=== PATIENT | male | born 1940 | race Caucasian/White ===

== ENCOUNTER → 2018-02-11 | Outpatient (REF) | payer MEDICARE ==
[2018-02-11 14:41] LABS: AMORPHOUS SEDIMENT SMALL (NEGATIVE); APPEARANCE, URINE CLEAR (CLEAR); BACTERIA, URINE AUTO NEGATIVE (NEGATIVE); BILIRUBIN, URINE AUTO NEGATIVE (NEGATIVE); BLOOD, URINE BLOOD NEGATIVE (NEGATIVE); COLOR, URINE YELLOW (YELLOW); GLUCOSE, URINE (UA) AUTO NEGATIVE (NEGATIVE); KETONE, URINE AUTO NEGATIVE (NEGATIVE); LEUKOCYTE ESTERASE, URINE AUTO NEGATIVE (NEGATIVE); NITRITE, URINE AUTO NEGATIVE (NEGATIVE); PROTEIN, URINE AUTO NEGATIVE (NEGATIVE); RBC, URINE AUTO 3 /HPF (0-3); SQUAMOUS EPITHELIAL CELL UR AU 0 /HPF (0-6); WBC, URINE AUTO 2 /HPF (0-3)
== END ==
LOC: M SFHCPLAZ 13:24
DX: N39.45 Continuous leakage (principal)
CPT/HCPCS: 81001

== ENCOUNTER → 2018-02-22 | Outpatient (CLI) | payer MEDICARE ==
--- NOTE | 2018-02-22 13:17 | REP ---
Acute abdominal series: Five views. History: Diarrhea and fatigue. Abdomen pain. Findings: Upright chest radiograph shows mildly hyperinflated lungs without evidence of infiltrate. Heart is not enlarged. The aorta is tortuous. There is a levoconvex curvature in the thoracic spine along with fairly advanced degenerative disc change. No free subdiaphragmatic air is seen. Supine and erect views of the abdomen show prostate seeds in the prostate bed. There is diffuse osteoporosis. The bowel gas pattern is unremarkable. No mass or organomegaly is seen. Some degenerative changes are seen in the upper lumbar spine. Impression: Status post prostate seed placement. Normal bowel gas pattern. No acute disease. Electronically Signed by Jed Walls MD 02/22/2018 04:55 P
[2018-02-22 18:07] LABS: ALBUMIN 3.8 GM/DL (3.2-5.2); ALT/SGPT 17 U/L (12-78); AMYLASE 53 U/L (25-115); BILIRUBIN,TOTAL 1.2 MG/DL (0.2-1.0); BLOOD UREA NITROGEN 8 MG/DL (7-18); CALCIUM LEVEL 8.8 MG/DL (8.8-10.2); CARBON DIOXIDE LEVEL 27 MEQ/L (21-32); CHLORIDE LEVEL 95 MEQ/L (98-107); CREATININE FOR GFR 0.76 MG/DL (0.70-1.30); GLOMERULAR FILTRATION RATE > 60.0 (>42); GLUCOSE, FASTING 92 MG/DL (70-100); LIPASE 198 U/L (73-393); SODIUM LEVEL 131 MEQ/L (136-145); TOTAL PROTEIN 6.5 GM/DL (6.4-8.2)
[2018-02-22 18:27] LABS: BASO % 0.3 % (0.0-1.0); EOS % 0.3 % (0.0-3.0); HEMATOCRIT 40.7 % (42.0-52.0); HEMOGLOBIN 14.9 g/dl (13.5-17.5); LYMPH # 0.8 10^3/uL (1.5-4.5); LYMPH % 11.5 % (24.0-44.0); MEAN CORPUSCULAR HEMOGLOBIN 33.1 pg (27.0-33.0); MEAN CORPUSCULAR HGB CONC 36.6 g/dl (32.0-36.5); MEAN CORPUSCULAR VOLUME 90.4 fl (80.0-96.0); MONO # 0.5 10^3/uL (0.0-0.8); MONO % 6.7 % (0.0-5.0); NEUTROPHILS # 5.8 10^3/uL (1.8-7.7); NEUTROPHILS % 81.1 % (36.0-66.0); WHITE BLOOD COUNT 7.1 10^3/uL (4.0-10.0)
== END ==
LOC: M WUC 12:11
PROVIDERS: ATTEND Physician Assistant
DX: R19.7 Diarrhea, unspecified (principal)

== ENCOUNTER → 2018-02-27 | Outpatient (REF) | payer MEDICARE | LOC: M SFHCPLAZ 16:19 | PROVIDERS: ATTEND Student in an Organized Health Care Education/Training Program | DX: R19.7 Diarrhea, unspecified (principal) ==

== ENCOUNTER 2018-11-04 11:49 | Emergency (ER) | payer MEDICARE ==
[~2018-11-04] VITALS: Ht 177.8 cm; Wt 74.1 kg
[2018-11-04] MEDS ORDERED: ATEN25TA PO (12:44)
[2018-11-04] MEDS ORDERED: PEPT262S PO (12:45)
[2018-11-04] MEDS ORDERED: BENA25CA4 PO (12:46)
[2018-11-04 12:57] LABS: BASO % 0.3 % (0.0-1.0); EOS % 0.3 % (0.0-3.0); HEMATOCRIT 44.1 % (42.0-52.0); LYMPH # 0.8 10^3/uL (1.5-4.5); LYMPH % 9.8 % (24.0-44.0); MEAN CORPUSCULAR HGB CONC 36.3 g/dl (32.0-36.5); MEAN CORPUSCULAR VOLUME 93.8 fl (80.0-96.0); MONO # 0.5 10^3/uL (0.0-0.8); MONO % 6.3 % (0.0-5.0); NEUTROPHILS # 6.6 10^3/uL (1.8-7.7); PLATELET COUNT, AUTOMATED 265 10^3/uL (150-450); WHITE BLOOD COUNT 7.9 10^3/uL (4.0-10.0)
[2018-11-04 13:15] VITALS: BP 160/78
[2018-11-04] MEDS ORDERED: NS 1,000 ML IV ONE (13:15)
[2018-11-04 13:16] LABS: ALBUMIN 3.9 GM/DL (3.2-5.2); ALT/SGPT 22 U/L (12-78); BILIRUBIN,DIRECT 0.2 MG/DL (0.0-0.2); BLOOD UREA NITROGEN 9 MG/DL (7-18); CALCIUM LEVEL 9.3 MG/DL (8.8-10.2); CARBON DIOXIDE LEVEL 26 MEQ/L (21-32); CHLORIDE LEVEL 102 MEQ/L (98-107); CREATININE FOR GFR 0.63 MG/DL (0.70-1.30); GLOMERULAR FILTRATION RATE > 60.0 (>42); GLUCOSE, FASTING 103 MG/DL (70-100); LIPASE 192 U/L (73-393); POTASSIUM SERUM 3.6 MEQ/L (3.5-5.1); SODIUM LEVEL 136 MEQ/L (136-145)
[2018-11-04] MEDS ORDERED: AMBI5TAB PO ×2 (14:25→14:26)
--- NOTE | 2018-11-04 14:29 | REP ---
Portable chest, 01:24 p.m., single AP view with the the patient sitting: There are no comparison studies. The lung macias are clear. The cardiac size is normal. The miguelangel, mediastinum, and skeletal structures are unremarkable. Impression: Negative portable chest. Electronically Signed by Chad Pantoja MD 11/04/2018 02:20 P
== END 2018-11-04 14:45 | disposition home or self-care (01) ==
LOC: M ED 11:49
DX: R19.7 Diarrhea, unspecified (principal); I10 Essential (primary) hypertension; F17.290 Nicotine dependence, other tobacco product, uncomplicated; Z79.899 Other long term (current) drug therapy

== ENCOUNTER → 2018-11-08 | Outpatient (CLI) | payer MEDICARE ==
[~2018-11-08] MED LIST: AMBI5TAB PO; ATEN25TA PO; BENA25CA4 PO; ISOVUE-370 76% 100ML VIAL (Q9967) As Ordered ONE; PEPT262S PO
--- NOTE | 2018-11-08 14:26 | REP ---
CT of the abdomen pelvis without and with contrast (CT urogram) Indication: Continuous leakage of urine. Malignant neoplasm of urinary bladder, unspecified site. Comparison: None Technique: Axial CT urogram was performed including precontrast, cortical medullary and excretory phase imaging of the abdomen and pelvis. Coronal and sagittal reformatted images of the excretory phase imaging and volume rendering of the ureters and bladder was performed. A total of 100 mL of Isovue 370 was administered intravenously. Findings: Lung bases: There is no suspicious nodule or consolidation. There is no pleural or pericardial effusion. Note is made of atherosclerotic calcifications of the thoracic aorta and coronary arteries. CT urogram: No calculus is identified within the kidneys, ureter or bladder. The kidneys enhance symmetrically. There is no hydronephrosis or hydroureter. The urinary bladder is underdistended throughout the study. On excretory phase imaging, the urinary bladder is incompletely opacified as are the distal ureters. There is incomplete opacification of the proximal right and left ureter which may be secondary to pulsation. The non dependent portion of the urinary bladder is unopacified. The anterior wall is incompletely evaluated. There is undulation of the posterior wall of the urinary bladder, greater on the right (image 120). A focal mass is not identified. There is contrast of the base of the prostate centrally which may represent excreted contrast within the urethra (axial image 128). Within the remainder of the abdomen and pelvis, the liver and spleen are normal. There is a small left upper quadrant accessory spleen. A calcified gallstone is seen within the gallbladder. The adrenal glands are thickened without suspicious focal nodule. The pancreas is unremarkable. There is atherosclerotic calcification of the abdominal aorta and its branches. There is abdominal aortic ectasia. There is evidence of mural thrombus. Unopacified stomach and bowel loops are normal in caliber. There is no intraperitoneal free air or free fluid. Brachytherapy seeds are scattered throughout the prostate gland. Bones/soft tissues: There is diffuse idiopathic skeletal hyperostosis within the lower thoracic spine. There is compression deformity of the L2 vertebral body with diffuse sclerosis and less than 50% loss of height anteriorly. There is superior endplate Schmorl's node deformity at L3. There is contour deformity of the first coccygeal vertebra, likely remote fracture. There is fatty atrophy of the posterior paraspinal muscles at the level of the sacrum. There is a 2 cm rounded subcutaneous lesion superficial to the spinous process of T12 which could represent a sebaceous cyst. Impression: Incomplete opacification of the distal ureters and bladder on delayed phase of CT urogram and incomplete distension of the urinary bladder. Within this limitation, no focal mass is identified. Contrast is seen at the base of prostate, presumably within the prostatic urethra. Compression deformity and sclerosis of the L2 vertebral body with less than 50% loss of height. Other chronic findings as above. Electronically Signed by Jovan Dunn MD 11/08/2018 02:19 P
== END ==
LOC: M RAD 11:01
PROVIDERS: ATTEND Urology
DX: N39.45 Continuous leakage (principal); C67.9 Malignant neoplasm of bladder, unspecified
CPT/HCPCS: 74178; Q9967

== ENCOUNTER 2020-06-08 09:36 | Emergency (ER) | payer OTHER, MEDICARE ==
[~2020-06-08] VITALS: Ht 177.8 cm; Wt 82.0 kg
[~2020-06-08 09:36] MED LIST changes: -ISOVUE-370 76% 100ML VIAL (Q9967) As Ordered ONE
[2020-06-08] MEDS ORDERED: NS 1,000 ML IV ONE (10:20)
[2020-06-08 10:30] LABS: BASO % 0.4 % (0.0-1.0); EOS # 0.2 10^3/uL (0.0-0.5); EOS % 2.7 % (0.0-3.0); HEMATOCRIT 45.8 % (42.0-52.0); HEMOGLOBIN 15.9 g/dl (13.5-17.5); LYMPH % 12.7 % (24.0-44.0); MEAN CORPUSCULAR HGB CONC 34.7 g/dl (32.0-36.5); MEAN CORPUSCULAR VOLUME 92.2 fl (80.0-96.0); MONO # 0.6 10^3/uL (0.0-0.8); MONO % 7.3 % (2.0-8.0); NEUTROPHILS # 5.8 10^3/uL (1.5-8.5); NEUTROPHILS % 76.6 % (36.0-66.0); PLATELET COUNT, AUTOMATED 235 10^3/uL (150-450); RED BLOOD COUNT 4.97 10^6/uL (4.30-6.10); WHITE BLOOD COUNT 7.5 10^3/uL (4.0-10.0)
[2020-06-08 10:55] LABS: BILIRUBIN,DIRECT 0.2 MG/DL (0.0-0.2); BILIRUBIN,TOTAL 0.8 MG/DL (0.2-1.0); TOTAL PROTEIN 6.9 GM/DL (6.4-8.2)
[2020-06-08 12:18] VITALS: BP 184/90
[2020-06-08] MEDS ORDERED: VANC125C3 PO (14:47)
== END 2020-06-08 12:36 | disposition home or self-care (01) ==
LOC: M ED 09:36
DX: R19.7 Diarrhea, unspecified (principal); I10 Essential (primary) hypertension; Z79.899 Other long term (current) drug therapy

== ENCOUNTER 2020-06-21 17:52 | Emergency (ER) | payer MEDICARE, OTHER ==
[~2020-06-21] VITALS: Ht 180.3 cm; Wt 81.9 kg
[~2020-06-21 17:52] MED LIST changes: +VANC125C3 PO
--- NOTE | 2020-06-21 19:16 | REP ---
INDICATION: CHEST PAIN. COMPARISON: 11/04/2018 a portable chest TECHNIQUE: Two views FINDINGS: The superior mediastinal structures are midline. There is thoracic aortic tortuosity status quo. The cardiac silhouette is unremarkable in size, shape, and position. The diaphragmatic surfaces of the lungs are regular, and the costophrenic angles are clear. The pulmonary macias are clear. The imaged osseous structures are intact. IMPRESSION: There is no acute cardiopulmonary disease. <Electronically signed by Prasanth Aranda > 06/21/20 [id number]
[2020-06-21 20:08] LABS: BASO % 0.5 % (0.0-1.0); EOS # 0.1 10^3/uL (0.0-0.5); EOS % 1.7 % (0.0-3.0); HEMATOCRIT 45.2 % (42.0-52.0); HEMOGLOBIN 15.7 g/dl (13.5-17.5); LYMPH # 0.9 10^3/uL (1.5-5.0); LYMPH % 11.2 % (24.0-44.0); MEAN CORPUSCULAR HEMOGLOBIN 31.8 pg (27.0-33.0); MEAN CORPUSCULAR HGB CONC 34.7 g/dl (32.0-36.5); MEAN CORPUSCULAR VOLUME 91.5 fl (80.0-96.0); MONO # 0.5 10^3/uL (0.0-0.8); MONO % 5.7 % (2.0-8.0); NEUTROPHILS # 6.8 10^3/uL (1.5-8.5); NEUTROPHILS % 80.5 % (36.0-66.0); PLATELET COUNT, AUTOMATED 281 10^3/uL (150-450); RED BLOOD COUNT 4.94 10^6/uL (4.30-6.10); WHITE BLOOD COUNT 8.4 10^3/uL (4.0-10.0)
[2020-06-21 20:21] LABS: INR 0.97
[2020-06-21 20:22] LABS: PARTIAL THROMBOPLASTIN TIME 29.5 SECONDS (24.2-38.5)
[2020-06-21 20:40] LABS: ALT/SGPT 21 U/L (12-78); BILIRUBIN,DIRECT 0.2 MG/DL (0.0-0.2); BILIRUBIN,TOTAL 0.6 MG/DL (0.2-1.0); BLOOD UREA NITROGEN 11 MG/DL (7-18); CARBON DIOXIDE LEVEL 26 MEQ/L (21-32); CHLORIDE LEVEL 106 MEQ/L (98-107); CK-MB VALUE MASS 3.3 NG/ML (<3.6); CPK CREATINE PHOSPHOKINASE 62 U/L (39-308); CREATININE FOR GFR 0.58 MG/DL (0.70-1.30); FREE T4 1.12 NG/DL (0.76-1.46); GLOMERULAR FILTRATION RATE > 60.0 (>42); GLUCOSE, FASTING 103 MG/DL (70-100); LIPASE 127 U/L (73-393); MB/CK RELATIVE INDEX 5.32 (< OR =4); NT-PRO BNP 1658 PG/ML (<450); POTASSIUM SERUM 4.2 MEQ/L (3.5-5.1); SODIUM LEVEL 138 MEQ/L (136-145); TOTAL PROTEIN 7.1 GM/DL (6.4-8.2); TROPONIN I < 0.02 NG/ML (< 0.10)
[2020-06-21] MEDS ORDERED: clonazePAM 1 MG TAB PO ONE (20:55)
[2020-06-21 21:03] VITALS: BP 216/100
--- NOTE | 2020-06-21 23:10 | REPVR ---
PROCEDURE INFORMATION: Exam: US Duplex Lower Extremity Veins, Bilateral Exam date and time: 06/21/2020 10:48 PM Age: 80 years old Clinical indication: Edema, localized; Lower extremity, bilateral TECHNIQUE: Imaging protocol: Real-time duplex ultrasound of the extremities with 2-D leon scale, color Doppler flow and spectral waveform analysis with image documentation. Complete exam focused on the bilateral lower extremity veins. COMPARISON: No relevant prior studies available. FINDINGS: Right deep veins: Unremarkable. The common femoral, femoral and popliteal veins are patent without thrombus. Normal Doppler waveforms. Normal compressibility and/or augmentation response. Right superficial veins: Saphenofemoral junction is patent without thrombus. Left deep veins: Unremarkable. The common femoral, femoral and popliteal veins are patent without thrombus. Normal Doppler waveforms. Normal compressibility and/or augmentation response. Left superficial veins: Saphenofemoral junction is patent without thrombus. Soft tissues: Unremarkable. IMPRESSION: No sonographic evidence of deep vein thrombosis. Electronically signed by: Tor Lantigua On 06/21/2020 23:11:03 PM
[2020-06-21] MEDS ORDERED: ATEN25TA PO (23:12)
[2020-06-21] MEDS ORDERED: HYDR12.55 PO (23:12)
[2020-06-21 23:15] VITALS: BP 145/88
--- NOTE | 2020-06-22 02:46 | ECGEPIP ---
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
== END 2020-06-21 23:40 | disposition home or self-care (01) ==
LOC: M ED 17:52
DX: I11.9 Hypertensive heart disease without heart failure (principal); R60.9 Edema, unspecified; F17.200 Nicotine dependence, unspecified, uncomplicated; F10.10 Alcohol abuse, uncomplicated; Z79.899 Other long term (current) drug therapy

== ENCOUNTER 2020-08-20 03:28 | Inpatient (IN) | payer OTHER ==
[~2020-08-20] VITALS: Ht 180.3 cm; Wt 82.5 kg
[~2020-08-20 03:28] MED LIST changes: +HYDR12.55 PO
[2020-08-20] MEDS ORDERED: NS 1,000 ML IV SCH ×2 (03:55→05:45)
[2020-08-20 04:01] LABS: HEMATOCRIT 36.4 % (42.0-52.0); HEMOGLOBIN 13.2 g/dl (13.5-17.5); MEAN CORPUSCULAR HEMOGLOBIN 32.3 pg (27.0-33.0); MEAN CORPUSCULAR HGB CONC 36.3 g/dl (32.0-36.5); PLATELET COUNT, AUTOMATED 221 10^3/uL (150-450); RED BLOOD COUNT 4.09 10^6/uL (4.30-6.10); WHITE BLOOD COUNT 6.2 10^3/uL (4.0-10.0)
[2020-08-20] MEDS ORDERED: ONDANSETRON 4MG/2ML VIAL IV ONE (04:05)
[2020-08-20] MEDS ORDERED: MORPHINE 2 MG/ML 1ML VIAL (J2270) IV PRN (04:05)
[2020-08-20 04:12] LABS: INR 0.97; PARTIAL THROMBOPLASTIN TIME 25.6 SECONDS (24.2-38.5); PROTHROMBIN TIME 13.1 SECONDS (12.5-14.3)
[2020-08-20 04:39] LABS: BLOOD UREA NITROGEN 16 MG/DL (7-18); CALCIUM LEVEL 8.3 MG/DL (8.8-10.2); CARBON DIOXIDE LEVEL 27 MEQ/L (21-32); CHLORIDE LEVEL 96 MEQ/L (98-107); CK-MB VALUE MASS 2.7 NG/ML (<3.6); CPK CREATINE PHOSPHOKINASE 76 U/L (39-308); CREATININE FOR GFR 0.59 MG/DL (0.70-1.30); GLOMERULAR FILTRATION RATE > 60.0 (>42); GLUCOSE, FASTING 107 MG/DL (70-100); MB/CK RELATIVE INDEX 3.55 (< OR =4); POTASSIUM SERUM 3.8 MEQ/L (3.5-5.1); SODIUM LEVEL 130 MEQ/L (136-145); TROPONIN I < 0.02 NG/ML (< 0.10)
[2020-08-20 04:58] LABS: RSV AMPLIFICATION NEGATIVE (NEGATIVE)
[2020-08-20] MEDS ORDERED: MAALOX 30 ML SUSP *UDC PO PRN (05:20)
[2020-08-20] MEDS ORDERED: MORPHINE 4 MG/ML 1ML VIAL/SYRINGE (J2270) IV PRN (05:20)
[2020-08-20] MEDS ORDERED: LORazepam 2 MG TAB PO PRN (05:20)
[2020-08-20] MEDS ORDERED: IPRATROPIUM 0.5MG/ALBUTEROL 2.5MG INH SOL UD 3ML (DUONEB) NEB ONE (05:20)
[2020-08-20 05:21] LABS: OSMOLALITY SERUM 277 MOSM/KG (280-301)
[2020-08-20 05:22] LABS: NT-PRO BNP 242 PG/ML (<450)
[2020-08-20] MEDS ORDERED: methylPREDNISolone 125MG 2ML VIAL IV ONE (05:25)
[2020-08-20] MEDS ORDERED: HYDR-3490 PO (05:30)
[2020-08-20] MEDS ORDERED: LISI40TA4 PO (05:30)
[2020-08-20] MEDS ORDERED: OXYB-54 PO (05:30)
[2020-08-20] MEDS ORDERED: LOPE1CAP5 PO (05:30)
[2020-08-20] MEDS ORDERED: HYDR-3363 PO (05:30)
[2020-08-20] MEDS ORDERED: CARV25TA PO (05:30)
[2020-08-20] MEDS ORDERED: ERGO500029 PO (05:30)
[2020-08-20] MEDS ORDERED: AMLO1TAB25 PO (05:30)
--- NOTE | 2020-08-20 06:01 | HPEPDOC ---
[facility] Medical History & Physical Date of Admission Aug 20, 2020 Date of Service: Aug 20, 2020 Attending Physician: MATILDA MORRIS MD History and Physical CHIEF COMPLAINT: [80 y/o male c/o hip pain] HISTORY OF PRESENT ILLNESS: [This is a 80 y/o male with a pmh of htn, prostate and bladder ca s/p resection who reports to the ED with a cc of hip pain after a fall last night. Patient states that he was on his way back to bed after using the bathroom when he tripped over his walker and suffered a fall in which he landed on his rear end. Patient states that he was not dizzy prior to the fall. Patient states he remembers falling and denies post fall grogginess. Patient states that as of now his only complaint is of pain in his left hip that does not radiate. Patient denies paresthesias of this extremity. Patient denies chest pain, fever, chills, abd pain, n/v/d/c. Patient states that he believes he struck his head, but denies headache, vision changes. On exam, patient becomes sob with speech and has marked wheezing in all lung macias. According to our chart, patient has somewhere between 100-150 pack year history and is a current smoker. Patient states that he has never been told he has COPD and is not on any at home inhalers. Patient states that he has had these symptoms for several days. Patient found to have left femur fracture on imaging in the emergency department.] PAST MEDICAL HISTORY: 1. [See HPI PAST SURGICAL HISTORY: 1. [Bladder ca resection]. 2. [Right knee ORIF]. SOCIAL HISTORY: Tobacco use:[100-150 pack year history. Current pipe smoker] ETOH: ["3-4 beers most days"] Illicit drug use: [Denies] Other relevant social factors: [Patient exposed to bladder carcinogens in the [employer]] FAMILY HISTORY: Reviewed - none pertinent ALLERGIES: Please see below. REVIEW OF SYSTEMS: CONSTITUTIONAL: [See HPI]. HEENT: [Denies uri sx]. CARDIOVASCULAR: [See HPI]. RESPIRATORY: [See HPI]. GASTROINTESTINAL: [See HPI]. GENITOURINARY: [Denies dysuria]. SKIN: [Denies rash]. MUSCULOSKELETAL: [See HPI]. NEUROLOGICAL: [See HPI]. ENDOCRINE: [Denies hx of DM]. HEMATOLOGIC/LYMPHATIC: [Denies easy bruising]. HOME MEDICATIONS: Please see below. PHYSICAL EXAMINATION: VITAL SIGNS: Please see below. GENERAL APPEARANCE: [This is a disheveled appearing 80 y/o male. He appears to have acute increased work of breathing.]. HEENT: [No mass or lesion. EOMI. No scleral icterus. Nares patent. Oral mucosa dry without erythema.]. CARDIOVASCULAR: [Borderline tachy rate, regular rhythm. No murmurs, rubs, gallops]. LUNGS: [Decreased lung sounds throughout, poor air exchange. Diffuse wheezing.]. ABDOMEN: [Soft, nontender]. MUSCULOSKELETAL: [Hip ROM not assessed. No joint deformity.]. EXTREMITIES: [Mild b/l lower extremity edema. No overlying skin changes. Pulses intact.]. NEUROLOGICAL: [Sensation intact. Speech clear. A+Ox3. No focal deficits.]. PSYCHIATRIC: [Mood and affect appear appropriate. ]. LABORATORY DATA: See below. IMAGING: MICROBIOLOGY: Please see below. ASSESSMENT: [his is a 80 y/o male with a pmh of htn, prostate and bladder ca s/p resection who reports to the ED with a cc of hip pain after a mechanical fall last night. Patient found to have broken left femur on imaging in the ed. Of note, patient also notably sob on exam with diffuse wheezing. Patient has extensive smoking hx but no diagnosis of COPD.]. . PLAN: 1. [Left hip fx - Dr. Franklin, orthopedics, has been consulted to evaluate need for surgery. - Will keep pt NPO for now - Will give IVF - Pain control - toradol for mod pain, morphine for severe pain - Zofran for nausea - Admit to med surg 2. SOB - Possible COPD exacerbation - pt has no at home inhalers, but has very extensive smoking hx - Will give 125mg solumedrol, duonebs q4h, albuterol q4h - Supplemental o2 if needed titrated to 88-92% - continuous pulse ox monitor, telemetry 3. Alcohol abuse - CIWA protocol 4. Nicotine dependence - patch 5. HTN - continue at home carvedilol, amlodipine, hctz 6. Insomnia - continue at home atarax DVT Prophylaxis - Mechanical for now pre-op]. Vital Signs Vital Signs Date Time Temp Pulse Resp B/P (MAP) Pulse Ox O2 Delivery O2 Flow Rate FiO2 08/20/20 05:44 22 Room Air 08/20/20 03:40 98.5 80 169/88 (115) 96 Laboratory Data Labs 24H Laboratory Tests 2 08/20/20 03:50: Nucleated Red Blood Cells % (auto) 0.0, Prothrombin Time 13.1, Prothromb Time International Ratio 0.97, Activated Partial Thromboplast Time 25.6, Anion Gap 7L, Glomerular Filtration Rate > 60.0, Osmolality 277L, Calcium Level 8.3L, Total Creatine Kinase 76, Creatine Kinase MB 2.7, Creatine Kinase MB Relative Index 3.55, Troponin I < 0.02, BJ-Asv-F-Type Natriuretic Peptide 242 08/20/20 04:02: Coronavirus (COVID-19)(PCR) NEGATIVE, Influenza Type A (RT-PCR) NEGATIVE, Influenza Type B (RT-PCR) NEGATIVE, Respiratory Syncytial Virus (PCR) NEGATIVE CBC/BMP Laboratory Tests 08/20/20 03:50 Home Medications Scheduled Amlodipine Besylate (Amlodipine Besylate) 10 Mg Tablet, 10 MG PO DAILY Carvedilol (Carvedilol) 25 Mg Tablet, 25 MG PO BID Ergocalciferol (Vitamin D2) (Vitamin D2) 50,000 Units Cap, 50,000 UNITS PO QWEEK SUNDAY Hydrochlorothiazide (Hydrochlorothiazide) 25 Mg Tablet, 25 MG PO DAILY Lisinopril (Lisinopril) 40 Mg Tablet, 40 MG PO DAILY Oxybutynin Chloride (Oxybutynin Chloride ER) 5 Mg Tab.er.24, 5 MG PO DAILY Scheduled PRN Hydroxyzine HCl (Hydroxyzine HCl) 25 Mg Tablet, 25 MG PO QHS PRN for SLEEP Loperamide HCl (Loperamide) 2 Mg Capsule, 2 MG PO ASDIRECTED PRN for DIARRHEA Allergies Coded Allergies: No Known Allergies (Unverified , 11/04/18) A-FIB/CHADSVASC A-FIB History Current/History of A-Fib/PAF?: No Attending Note Attending Note Time of service 5:40AM Mr Finley is a 80 yr old former [employer] w a hx of bladder cancer, prostate carcinoma, anxiety, and tobacco & alcohol dependence. 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
--- NOTE | 2020-08-20 06:15 | REPVR ---
PROCEDURE INFORMATION: Exam: XR Chest Exam date and time: 08/20/2020 4:48 AM Age: 80 years old Clinical indication: Other: Pre-op, copd TECHNIQUE: Imaging protocol: XR of the chest. Views: 1 view. COMPARISON: CR Chest, 2 view PA, Lat 06/21/2020 6:48 PM FINDINGS: Lungs: Unremarkable. No consolidation. Pleural spaces: Unremarkable. No pleural effusion. No pneumothorax. Heart/Mediastinum: Cardiomediastinal silhouette is similar. Vasculature: Tortuous partially calcified thoracic aorta. Diaphragm: Elevation left hemidiaphragm. Bones/joints: Degenerative change of the spine. IMPRESSION: Stable chest without acute process. Electronically signed by: Crys Ramos On 08/20/2020 06:14:58 AM
--- NOTE | 2020-08-20 06:19 | REPVR ---
PROCEDURE INFORMATION: Exam: XR Left Hip Exam date and time: 08/20/2020 4:48 AM Age: 80 years old Clinical indication: Other: Trauma TECHNIQUE: Imaging protocol: XR Left hip. Views: 2 or 3 views hip with pelvis when performed. COMPARISON: CT ABD PELVIS W/O FOL BY WIT 11/08/2018 11:30 AM FINDINGS: Tubes, catheters and devices: Implanted treatment material at the soft tissues vicinity of prostate gland. Bones/joints: Acute displaced comminuted intertrochanteric fracture proximal left femur. Degenerative arthritis at the hip joint. Osteopenia. Soft tissues: Lower pelvic soft tissue calcifications suspicious for phleboliths. IMPRESSION: Acute comminuted intertrochanteric fracture proximal left femur. Electronically signed by: Crys Ramos On 08/20/2020 06:18:40 AM
--- NOTE | 2020-08-20 06:20 | REPVR ---
PROCEDURE INFORMATION: Exam: XR Left Femur Exam date and time: 08/20/2020 4:48 AM Age: 80 years old Clinical indication: Other: Trauma TECHNIQUE: Imaging protocol: XR Left femur. Views: 2 views. COMPARISON: US Duplex, Ext LOWER veins, bilat 06/21/2020 10:29 PM FINDINGS: Bones/joints: Hardware positioning left patella. Osteopenia. The distal femur is intact without evidence of fracture. Soft tissues: Soft tissue vascular calcification. IMPRESSION: Distal femur is intact with postsurgical changes of the patella. Electronically signed by: Crys Ramos On 08/20/2020 06:20:29 AM
--- NOTE | 2020-08-20 06:47 | ECGEPIP ---
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
[2020-08-20 08:41] LABS: BASO % 0.2 % (0.0-1.0); EOS % 0.2 % (0.0-3.0); HEMATOCRIT 36.7 % (42.0-52.0); HEMOGLOBIN 13.3 g/dl (13.5-17.5); LYMPH # 0.4 10^3/uL (1.5-5.0); LYMPH % 3.1 % (24.0-44.0); MEAN CORPUSCULAR HEMOGLOBIN 32.2 pg (27.0-33.0); MEAN CORPUSCULAR HGB CONC 36.2 g/dl (32.0-36.5); MEAN CORPUSCULAR VOLUME 88.9 fl (80.0-96.0); MONO # 0.3 10^3/uL (0.0-0.8); MONO % 2.6 % (2.0-8.0); NEUTROPHILS # 12.4 10^3/uL (1.5-8.5); NEUTROPHILS % 93.5 % (36.0-66.0); PLATELET COUNT, AUTOMATED 242 10^3/uL (150-450); RED BLOOD COUNT 4.13 10^6/uL (4.30-6.10); WHITE BLOOD COUNT 13.3 10^3/uL (4.0-10.0)
[2020-08-20 09:00] LABS: ALBUMIN 3.7 GM/DL (3.2-5.2); ALT/SGPT 15 U/L (12-78); BILIRUBIN,TOTAL 0.8 MG/DL (0.2-1.0); BLOOD UREA NITROGEN 16 MG/DL (7-18); CALCIUM LEVEL 8.3 MG/DL (8.8-10.2); CARBON DIOXIDE LEVEL 26 MEQ/L (21-32); CHLORIDE LEVEL 96 MEQ/L (98-107); CREATININE FOR GFR 0.52 MG/DL (0.70-1.30); GLOMERULAR FILTRATION RATE > 60.0 (>42); GLUCOSE, FASTING 132 MG/DL (70-100); MAGNESIUM LEVEL 1.9 MG/DL (1.8-2.4); POTASSIUM SERUM 3.9 MEQ/L (3.5-5.1); SODIUM LEVEL 129 MEQ/L (136-145); TOTAL PROTEIN 6.3 GM/DL (6.4-8.2)
[2020-08-20] MEDS ORDERED: IPRATROPIUM 0.5MG/ALBUTEROL 2.5MG INH SOL UD 3ML (DUONEB) NEB PRN (10:00)
[2020-08-20 10:47] VITALS: BP 132/76; O2SAT 91
--- NOTE | 2020-08-20 10:58 | IPNPDOC ---
Date Seen The patient was seen on 08/20/20. Progress Note SUBJECTIVE: She was seen and examined at bedside in the emergency room. The patient was transported upstairs to medical floor. Patient does not endorse occasional stretches. Denies palpitations, fever, chills, nausea, vomiting, diarrhea. Otherwise, didn't feel he is a little short of breath on speaking. No audible wheezes bedside. OBJECTIVE PHYSICAL EXAMINATION: VITAL SIGNS: please see below General: NAD, comfortable HEENT: PERRLA, EOMI, sclerae clear Neck: supple, normal ROM, no JVD Respiratory: lungs CTAB, no wheeze, no rales, no crackles CVS: RRR, normal S1, S2, no murmurs Abdo: soft, no masses, no hepatosplenomegaly, BS+, no rebound tenderness Extremities: 1+ edema, L hip ROM limited by Pain, site of fx MSK: no joint deformities, normal ROM Neuro: no focal neuro deficits, moving all 4 extremities, CN2-12 intact. Strength 5/5 in all 4 extremities. No nystagmus. Psych: calm, cooperative, AAO x 3 LABORATORY DATA, IMAGING STUDIES, MICROBIOLOGY: Please see below. Echocardiogram: ordered on 08/20/20 DVT prophylaxis ordered?: SCDs, TEDs. ASSESSMENT AND PLAN: 80 y/o male with a pmh of htn, prostate and bladder ca s/p resection, extensive smoking history and suspceted COPD who reports to the ED with a cc of hip pain after a mechanical fall last night. Patient found to have broken left femur on imaging. PROBLEMS: #Acute COPD exacerbation - c/w solumedrol 60 mg IV q8h - c/w duonebs q4h prn - start patient on albuterol inh and symbicort - continous pulse ox, tele - will hold carvedilol in setting of acute COPD exacerbation - will need pulm referral on DC #pathological L intertrochanteric proximal femur fx - seen on XR imaging. S/p mechanical fall. uses walker at home - D/w Dr. Franklin. Plan for ORIF on 08/22/20 in AM - will start on 2g sodium diet - RCRI score 0. - c/w DVT ppx - pain control #hyponatremia - Na 130 - possible SIADH in setting of suspected lung ca - check urine Na, osmolality - on Ns 100 cc/hr #Etoh use disorder - [facility] protocol - withdrawal precautions #nicotine depence - nicotine patch #suspected L upper lobe mass - will obtain CT chest for better evaluation - extensive smoking hx #Edema b/l - check bilateral venous duplex - BNP < 300 - echo ordered to r/o pulm htn - compressions socks #hx of bladder neoplasm - f/u urology op DVT pxp: SCDs. TEDs. heparin. VS, I&O, 24H, Fishbone Vital Signs/I&O Vital Signs Date Time Temp Pulse Resp B/P (MAP) Pulse Ox O2 Delivery O2 Flow Rate FiO2 08/20/20 08:44 82 128/79 08/20/20 06:30 98 Nasal Cannula 2.0 08/20/20 06:08 27 08/20/20 03:40 98.5 I&O- Last 24 Hours up to 6 AM 08/20/20 06:00 Intake Total 200 ml Balance 200 ml Laboratory Data 24H LABS Laboratory Tests 2 08/20/20 03:50: Nucleated Red Blood Cells % (auto) 0.0, Prothrombin Time 13.1, Prothromb Time International Ratio 0.97, Activated Partial Thromboplast Time 25.6, Anion Gap 7L, Glomerular Filtration Rate > 60.0, Osmolality 277L, Calcium Level 8.3L, Total Creatine Kinase 76, Creatine Kinase MB 2.7, Creatine Kinase MB Relative Index 3.55, Troponin I < 0.02, WF-Nvy-R-Type Natriuretic Peptide 242 08/20/20 04:02: Coronavirus (COVID-19)(PCR) NEGATIVE, Influenza Type A (RT-PCR) NEGATIVE, Influenza Type B (RT-PCR) NEGATIVE, Respiratory Syncytial Virus (PCR) NEGATIVE 08/20/20 08:19: Nucleated Red Blood Cells % (auto) 0.0, Anion Gap 7L, Glomerular Filtration Rate > 60.0, Calcium Level 8.3L, Immature Granulocyte % (Auto) 0.4, Neutrophils (%) (Auto) 93.5H, Lymphocytes (%) (Auto) 3.1L, Monocytes (%) (Auto) 2.6, Eosinophils (%) (Auto) 0.2, Basophils (%) (Auto) 0.2, Neutrophils # (Auto) 12.4H, Lymphocytes # (Auto) 0.4L, Monocytes # (Auto) 0.3, Eosinophils # (Auto) 0.0, Basophils # (Auto) 0.0, Magnesium Level 1.9, Total Bilirubin 0.8, Aspartate Amino Transf (AST/SGOT) 14, Alanine Aminotransferase (ALT/SGPT) 15, Alkaline Phosphatase 82, Total Protein 6.3L, Albumin 3.7, Albumin/Globulin Ratio 1.4 CBC/BMP Laboratory Tests 08/20/20 03:50 08/20/20 08:19 SVETA ARAUJO MD Aug 20, 2020 10:58
[2020-08-20] MEDS: ALBUTEROL 90 MCG/ACT 8GM HFA INHALER INH PRN (11:22)
[2020-08-20] MEDS ORDERED: ISOVUE-370 76% 100ML VIAL As Ordered ONE (11:35)
[2020-08-20] MEDS: SYMBICORT 80/4.5MCG INHALER 6GM INH SCH ×2 (13:23→20:05)
[2020-08-20 14:00] VITALS: BP 147/91
[2020-08-20] MEDS: methylPREDNISolone 125MG 2ML VIAL IV SCH ×2 (14:43→21:02)
[2020-08-20] MEDS: DOCUSATE SODIUM 100MG CAPSULE PO SCH ×2 (14:43→21:01)
[2020-08-20] MEDS: oxyBUTYnin *DITROPAN XL* 5 MG TABCR PO SCH (14:43)
[2020-08-20] MEDS: MULTIVITAMINS/MINERALS THERAP 1 TAB PO SCH (14:43)
[2020-08-20] MEDS: FOLIC ACID 1 MG TAB PO SCH (14:43)
[2020-08-20] MEDS: CARVedilol 12.5 MG TAB PO SCH ×2 (14:44→21:01)
[2020-08-20] MEDS: lisinopriL 40 MG TAB PO SCH (14:44)
[2020-08-20] MEDS: THIAMINE 100 MG TAB PO SCH ×2 (14:44→21:01)
[2020-08-20] MEDS: NYSTATIN 100,000 UNITS/GM TOPICAL PWD 15 GM TOP SCH ×2 (14:45→21:02)
[2020-08-20] MEDS ORDERED: LORazepam 2 MG/ML VIAL IV PRN (15:35)
[2020-08-20 17:08] LABS: SODIUM,RANDOM URINE 38 MEQ/L
[2020-08-20 17:24] LABS: OSMOLALITY URINE 587 MOSM/KG (50-1400)
--- NOTE | 2020-08-20 18:19 | REP ---
INDICATION: r/o PE, lung mass. COMPARISON: Comparison chest x-ray August 20, 2020. No comparison chest CT study.. TECHNIQUE: Contrast dose: 75 ML of Isovue [address] technique: Helical scanning is acquired and overlapping 1.5 mm and contiguous 3 mm axial images are reformatted. In addition, maximum intensity projection and multiplanar re-formation images are generated in sagittal and coronal imaging projections. FINDINGS: There is good opacification in the pulmonary arterial tree. There is no evidence of vessel cut off or filling defect to suggest pulmonary embolus. Homogeneous opacity is seen in the thoracic aorta. There is no evidence of aneurysm or dissection. Lung window settings demonstrate no evidence of infiltrate, mass, or significant pulmonary nodule. No pleural or pericardial effusion is seen. There is heavy vascular calcification including coronary artery vascular calcification. Bone window settings demonstrate diffuse osteopenia and extensive degenerative changes in the thoracic spine. There is an old appearing wedge compression deformity at what appears to be the L2 vertebral body. This appears to be visible on comparison abdomen view from February 22, 2018. In the upper abdomen, there is an opaque gallstone near the neck of the gallbladder. An accessory splenule is seen. No adrenal mass is observed. IMPRESSION: No CT evidence of pulmonary embolus. Extensive vascular calcification. Evidence of left ventricular myocardial hypertrophy. Diffuse osteopenia, degenerative changes in the spine, and old wedge compression deformity at what appears to be L2. <Electronically signed by Samuel Walls > 08/20/20 [id number]
[2020-08-20 19:30] VITALS: BP 122/74
[2020-08-20] MEDS: HEPARIN SOD (PORCINE) 5000UNITS/ML 1ML VIAL/SYRINGE SQ SCH (21:02)
[2020-08-20] MEDS: hydrOXYzine 25 MG TAB PO PRN (21:02)
[2020-08-20] MEDS: NICOTINE 21MG/24HR 1 EA TRANSDERMAL TD PRN (21:02)
[2020-08-20] MEDS: KETOROLAC 30 MG/ML 1ML VIAL IV PRN (21:03)
[2020-08-20 22:00] VITALS: BP 144/80
[2020-08-20 22:50] VITALS: BP 104/62
--- NOTE | 2020-08-20 22:53 | REPVR ---
PROCEDURE INFORMATION: Exam: US Duplex Lower Extremity Veins, Bilateral Exam date and time: 08/20/2020 9:55 PM Age: 80 years old Clinical indication: Edema, localized; Lower extremity, bilateral; Additional info: Swelling, please R/O dvt TECHNIQUE: Imaging protocol: Real-time duplex ultrasound of the extremities with 2-D leon scale, color Doppler flow and spectral waveform analysis with image documentation. Complete exam focused on the bilateral lower extremity veins. COMPARISON: US Duplex, Ext LOWER veins, bilat 06/21/2020 10:29 PM FINDINGS: Right deep veins: Unremarkable. The common femoral, femoral, proximal profunda femoral and popliteal veins are patent without thrombus. Normal Doppler waveforms. Normal compressibility and/or augmentation response. Right superficial veins: Saphenofemoral junction is patent without thrombus. Left deep veins: Unremarkable. The common femoral, femoral, proximal profunda femoral and popliteal veins are patent without thrombus. Normal Doppler waveforms. Normal compressibility and/or augmentation response. Left superficial veins: Saphenofemoral junction is patent without thrombus. Soft tissues: Unremarkable. IMPRESSION: Negative bilateral lower extremity venous duplex exam without evidence of deep venous thrombosis. Electronically signed by: Lauri Faye On 08/20/2020 22:52:51 PM
[2020-08-20 23:00] VITALS: BP 104/62
[2020-08-20] MEDS: OXAZEPAM 10 MG CAP PO SCH (23:14)
[2020-08-20] MEDS: ACETAMINOPHEN TAB 650MG DOSE (2X325MG) PO PRN (23:15)
[2020-08-21] VITALS (7 sets, daily range): BP systolic 99–114; BP diastolic 58–66; O2SAT 90–91
[2020-08-21] MEDS: methylPREDNISolone 125MG 2ML VIAL IV SCH (06:39)
[2020-08-21 07:02] LABS: BLOOD UREA NITROGEN 27 MG/DL (7-18); CALCIUM LEVEL 8.6 MG/DL (8.8-10.2); CARBON DIOXIDE LEVEL 27 MEQ/L (21-32); CHLORIDE LEVEL 96 MEQ/L (98-107); CREATININE FOR GFR 0.69 MG/DL (0.70-1.30); GLOMERULAR FILTRATION RATE > 60.0 (>42); GLUCOSE, FASTING 129 MG/DL (70-100); HEMATOCRIT 30.3 % (42.0-52.0); MAGNESIUM LEVEL 2.2 MG/DL (1.8-2.4); MEAN CORPUSCULAR HEMOGLOBIN 32.6 pg (27.0-33.0); MEAN CORPUSCULAR HGB CONC 36.3 g/dl (32.0-36.5); MEAN CORPUSCULAR VOLUME 89.9 fl (80.0-96.0); PLATELET COUNT, AUTOMATED 188 10^3/uL (150-450); POTASSIUM SERUM 3.8 MEQ/L (3.5-5.1); RED BLOOD COUNT 3.37 10^6/uL (4.30-6.10); SODIUM LEVEL 131 MEQ/L (136-145); WHITE BLOOD COUNT 10.4 10^3/uL (4.0-10.0)
[2020-08-21] MEDS: SYMBICORT 80/4.5MCG INHALER 6GM INH SCH ×2 (07:29→19:51)
[2020-08-21] MEDS: OXAZEPAM 10 MG CAP PO SCH ×3 (10:35→20:54)
[2020-08-21] MEDS: FOLIC ACID 1 MG TAB PO SCH (10:36)
[2020-08-21] MEDS: HEPARIN SOD (PORCINE) 5000UNITS/ML 1ML VIAL/SYRINGE SQ SCH ×2 (10:36→20:54)
[2020-08-21] MEDS: MULTIVITAMINS/MINERALS THERAP 1 TAB PO SCH (10:36)
[2020-08-21] MEDS: oxyBUTYnin *DITROPAN XL* 5 MG TABCR PO SCH (10:36)
[2020-08-21] MEDS: lisinopriL 40 MG TAB PO SCH (10:36)
[2020-08-21] MEDS: THIAMINE 100 MG TAB PO SCH ×2 (10:37→20:54)
[2020-08-21] MEDS: CARVedilol 12.5 MG TAB PO SCH ×2 (10:37→22:48)
[2020-08-21] MEDS: DOCUSATE SODIUM 100MG CAPSULE PO SCH ×2 (10:37→20:54)
[2020-08-21] MEDS: NYSTATIN 100,000 UNITS/GM TOPICAL PWD 15 GM TOP SCH ×2 (10:38→20:55)
--- NOTE | 2020-08-21 13:42 | IPNPDOC ---
Date Seen The patient was seen on 08/21/20. Progress Note SUBJECTIVE: She was seen and examined at bedside in the emergency room. The patient was transported upstairs to medical floor. Patient does not endorse occasional stretches. Denies palpitations, fever, chills, nausea, vomiting, diarrhea. Otherwise, didn't feel he is a little short of breath on speaking OBJECTIVE PHYSICAL EXAMINATION: VITAL SIGNS: please see below General: NAD, comfortable HEENT: PERRLA, EOMI, sclerae clear Neck: supple, normal ROM, no JVD Respiratory: lungs CTAB, wheeze improved CVS: RRR, normal S1, S2, no murmurs Abdo: soft, no masses, no hepatosplenomegaly, BS+, no rebound tenderness Extremities: 1+ edema, L hip ROM limited by Pain, site of fx MSK: no joint deformities, normal ROM Neuro: no focal neuro deficits, moving all 4 extremities, CN2-12 intact. Strength 5/5 in all 4 extremities. No nystagmus. Psych: calm, cooperative, AAO x 3 LABORATORY DATA, IMAGING STUDIES, MICROBIOLOGY: Please see below. Echocardiogram: ordered on 08/20/20 DVT prophylaxis ordered?: SCDs, TEDs. ASSESSMENT AND PLAN: 80 y/o male with a pmh of htn, prostate and bladder ca s/p resection, extensive smoking history and suspected COPD who reports to the ED with a cc of hip pain after a mechanical fall last night. Patient found to have broken left femur on imaging. PROBLEMS: #Acute COPD exacerbation - c/w solumedrol 60 mg IV q8h - c/w duonebs q4h prn - start patient on albuterol inh and symbicort - continous pulse ox, tele - will hold carvedilol in setting of acute COPD exacerbation - will need pulm referral on DC #pathological L intertrochanteric proximal femur fx - seen on XR imaging. S/p mechanical fall. uses walker at home - D/w Dr. Franklin. Plan for ORIF on 08/22/20 in AM - will start on 2g sodium diet, NPO at midnight on 08/21/20 - RCRI score 0. - Dw Dr. Franklin, will assess for metastatic lesion at site of fx given extensive cancer hx - Dw Dr. Monte, recommended MRI w and wo femur to assess for mets. If not available, may obtain CT. - c/w DVT ppx - pain control #hyponatremia - Na 130 - possible SIADH in setting of suspected lung ca, known bladder ca - CTA chest negative for lung mass - takes HCTZ at home. Stopped. #Urinary retention - PVRs~200 cc - insert indwelling gonzalez - will hold oxybutinin for now - order bladder and kidney US #Etoh use disorder - CIWA protocol - withdrawal precautions - on serax 10 mg PO TID - CIWA 0 this morning. #nicotine depence - nicotine patch #suspected L upper lobe mass - will obtain CT chest for better evaluation - negative for masses on 08/20/20 - extensive smoking hx #Edema b/l - check bilateral venous duplex - negative for DVT - BNP < 300 - echo ordered to r/o pulm htn - compressions socks #hx of bladder neoplasm(2011), prostate ca (2004) - f/u urology and oncology op - may need PET CT vs Bone scan. Dw Dr. Monte. DVT pxp: SCDs. TEDs. heparin. VS, I&O, 24H, Fishbone Vital Signs/I&O Vital Signs Date Time Temp Pulse Resp B/P (MAP) Pulse Ox O2 Delivery O2 Flow Rate FiO2 08/21/20 10:36 92 136/60 08/21/20 06:00 98.0 18 95 Room Air 08/20/20 22:00 2.0 I&O- Last 24 Hours up to 6 AM 08/21/20 05:59 Intake Total 1240 ml Output Total 1060 ml Balance 180 ml Laboratory Data 24H LABS Laboratory Tests 2 08/20/20 16:30: Urine Color YELLOW, Urine Appearance CLOUDYH, Urine pH 5.0, Urine Specific Romney 1.038, Urine Protein NEGATIVE, Urine Glucose (UA) 1+H, Urine Ketones TRACEH, Urine Blood 1+H, Urine Nitrite NEGATIVE, Urine Bilirubin NEGATIVE, Urine Urobilinogen 0.2, Urine Leukocyte Esterase 2+H, Urine WBC (Auto) 81H, Urine RBC (Auto) 4H, Urine Hyaline Casts (Auto) 0, Urine Bacteria (Auto) 2+H, Urine Squamous Epithelial Cells 0, Urine Transitional Epithelial Cells <1, Urine Sperm (Auto) 08/20/20 16:31: Urine Osmolality 586, Urine Random Creatinine 74.0, Urine Random Sodium 38 08/21/20 06:20: Nucleated Red Blood Cells % (auto) 0.0, Anion Gap 8, Glomerular Filtration Rate > 60.0, Calcium Level 8.6L, Magnesium Level 2.2 CBC/BMP Laboratory Tests 08/21/20 06:20 Microbiology Microbiology 08/20/20 Urine Culture, Received Pending SVETA ARAUJO MD Aug 21, 2020 13:42
--- NOTE | 2020-08-21 15:43 | REP ---
INDICATION: urinary retention. COMPARISON: Comparison is made with CT images November 08, 2018.. TECHNIQUE: Urinary tract sonography. FINDINGS: Scanning at the level of the urinary bladder shows no abnormality. Renal cortical echogenicity pattern is normal bilaterally and contours are smooth. There is no evidence of hydronephrosis, cyst, mass, or calculus in either kidney. The right kidney measures 10.6 x 4.7 x 4.1 cm. Left renal dimensions are 10.9 x 4.7 x 5.8 cm. A tiny sliver of fluid is suspected adjacent to the right kidney. IMPRESSION: Unremarkable urinary tract sonography.. <Electronically signed by Samuel Walls > 08/21/20 0300
--- NOTE | 2020-08-21 15:44 | REP ---
INDICATION: urinary retention. COMPARISON: None. TECHNIQUE: Limited pelvic, bladder sonography. FINDINGS: Bladder mcneal are smooth on filled bladder images. Calculated prevoid bladder volume is 495 mL. A 70% postvoid residual, calculated at 346 mL is observed. No bladder mass lesion is seen. IMPRESSION: Mildly distended urinary bladder with large, 70%, postvoid residual. Otherwise negative. <Electronically signed by Samuel Walls > 08/21/20 [id number]
[2020-08-21] MEDS ORDERED: LORazepam 1 MG TAB PO STA (17:15)
[2020-08-21] MEDS ORDERED: PROHANCE 279.3MG/ML 15ML VIAL As Ordered ONE (18:25)
--- NOTE | 2020-08-21 19:21 | REPVR ---
PROCEDURE INFORMATION: Exam: MR Left Lower Extremity Without and With Contrast, Femur. Exam date and time: 08/21/2020 9:49 AM Age: 80 years old Clinical indication: Injury or trauma; Fracture, traumatic; Closed fracture; Hip; Left; Injury date: 08/20; Patient HX: HX fall and FX; Additional info: Assess for metastatic bone lesion in setting acute femur FX TECHNIQUE: Imaging protocol: MR of the Left lower extremity without and with contrast. Exam focused on the femur. Contrast material: PROHANCE; Contrast volume: 15 ml; Contrast route: INTRAVENOUS (IV); COMPARISON: CR Hip,AP,LAT to include Pelvis LEFT 08/20/2020 3:54:55 AM FINDINGS: There is a comminuted, displaced and impacted inter trochanteric fracture of the left proximal femur. There is mild associated bone marrow edema. There is no dislocation. No convincing underlying bone lesion is identified. There is mild left hip joint osteoarthrosis. No erosive or destructive changes are seen. There is no lytic or blastic lesion. There is a small left hip joint effusion. There is extensive soft tissue swelling at the fracture site, predominantly in the adductor, gluteal and quadriceps muscle bellies. No convincing organized fluid collection is identified. There is no soft tissue mass. IMPRESSION: 1. Comminuted, displaced inter trochanteric fracture of the left proximal femur without convincing underlying bone lesion. 2. Additional findings, as above. Electronically signed by: Tor Lantigua On 08/21/2020 19:21:19 PM
[2020-08-21] MEDS: MOM 30ML SUSPENSION UDC PO PRN (20:54)
[2020-08-21] MEDS: hydrOXYzine 25 MG TAB PO PRN (20:54)
[2020-08-21] MEDS: KETOROLAC 30 MG/ML 1ML VIAL IV PRN (20:55)
[2020-08-21] MEDS: NICOTINE 21MG/24HR 1 EA TRANSDERMAL TD PRN (20:55)
[2020-08-21] MEDS: ACETAMINOPHEN TAB 650MG DOSE (2X325MG) PO PRN (22:49)
[2020-08-21] MEDS: ALBUTEROL 90 MCG/ACT 8GM HFA INHALER INH PRN (23:05)
[2020-08-22] VITALS (9 sets, daily range): BP systolic 120–136; BP diastolic 61–79; O2SAT 88–92
[2020-08-22] MEDS: KETOROLAC 30 MG/ML 1ML VIAL IV PRN ×2 (03:22→17:54)
[2020-08-22 05:32] LABS: HEMATOCRIT 31.9 % (42.0-52.0); HEMOGLOBIN 11.5 g/dl (13.5-17.5); MEAN CORPUSCULAR HEMOGLOBIN 32.4 pg (27.0-33.0); MEAN CORPUSCULAR HGB CONC 36.1 g/dl (32.0-36.5); MEAN CORPUSCULAR VOLUME 89.9 fl (80.0-96.0); PLATELET COUNT, AUTOMATED 221 10^3/uL (150-450); RED BLOOD COUNT 3.55 10^6/uL (4.30-6.10); WHITE BLOOD COUNT 13.7 10^3/uL (4.0-10.0)
[2020-08-22 05:54] LABS: BLOOD UREA NITROGEN 39 MG/DL (7-18); CALCIUM LEVEL 8.6 MG/DL (8.8-10.2); CARBON DIOXIDE LEVEL 30 MEQ/L (21-32); CHLORIDE LEVEL 99 MEQ/L (98-107); CREATININE FOR GFR 0.63 MG/DL (0.70-1.30); GLOMERULAR FILTRATION RATE > 60.0 (>42); GLUCOSE, FASTING 118 MG/DL (70-100); POTASSIUM SERUM 3.8 MEQ/L (3.5-5.1); SODIUM LEVEL 133 MEQ/L (136-145)
[2020-08-22] MEDS: SYMBICORT 80/4.5MCG INHALER 6GM INH SCH ×2 (07:25→20:50)
[2020-08-22] MEDS ORDERED: LORazepam 2 MG/ML VIAL IV STA (08:12)
[2020-08-22 08:19] LABS: NT-PRO BNP 455 PG/ML (<450); TROPONIN I < 0.02 NG/ML (< 0.10)
--- NOTE | 2020-08-22 08:35 | REP ---
INDICATION: sob. COMPARISON: Comparison chest x-ray August 20, 2020. TECHNIQUE: Portable upright AP chest radiograph. FINDINGS: Left hemidiaphragm is slightly elevated unchanged. Mild cardiomegaly is observed unchanged. The pleural angles are sharp. No infiltrate is seen. Monitoring electrodes are seen. The aorta is calcific and tortuous.. IMPRESSION: Somewhat elevated left hemidiaphragm and mild cardiomegaly again noted unchanged. No acute disease.. <Electronically signed by Samuel Walls > 08/22/20 0871
[2020-08-22] MEDS: lisinopriL 40 MG TAB PO SCH (08:48)
[2020-08-22] MEDS: OXAZEPAM 10 MG CAP PO SCH ×3 (08:48→21:40)
[2020-08-22] MEDS: MULTIVITAMINS/MINERALS THERAP 1 TAB PO SCH (08:48)
[2020-08-22] MEDS: FOLIC ACID 1 MG TAB PO SCH (08:48)
[2020-08-22] MEDS: CARVedilol 12.5 MG TAB PO SCH ×2 (08:48→21:40)
[2020-08-22] MEDS: THIAMINE 100 MG TAB PO SCH ×2 (08:48→21:40)
[2020-08-22] MEDS: DOCUSATE SODIUM 100MG CAPSULE PO SCH ×2 (08:48→21:40)
[2020-08-22] MEDS: HEPARIN SOD (PORCINE) 5000UNITS/ML 1ML VIAL/SYRINGE SQ SCH ×2 (08:50→21:41)
[2020-08-22] MEDS: NYSTATIN 100,000 UNITS/GM TOPICAL PWD 15 GM TOP SCH ×2 (09:00→21:41)
--- NOTE | 2020-08-22 09:09 | REP ---
INDICATION: ams. COMPARISON: None. TECHNIQUE: Helical scanning is acquired. 5 mm axial images were reformatted. Coronal MPR images were generated. FINDINGS: Digital preliminary hide stretcher hand radiograph is unremarkable. The patient is edentulous. Bone window settings demonstrate moderate vascular calcification in the distal internal carotid arteries bilaterally. There are minimal mucosal changes in the ethmoids sinuses bilaterally. The visualized paranasal sinuses are otherwise clear. No intraorbital abnormality is seen. On soft tissue window settings, there is moderate generalized volume loss. There are mild small vessel changes in the periventricular white matter bilaterally. There is concordant ventricular enlargement. There is no evidence of intracranial hemorrhage. No mass, extra-axial fluid collection, acute infarction, or midline shift is seen. IMPRESSION: Generalized volume loss. Vascular calcification and mild small vessel changes. No acute intracranial abnormality seen.. <Electronically signed by Samuel Walls > 08/22/20 0906
[2020-08-22 09:20] LABS: INR 1.04; PROTHROMBIN TIME 13.8 SECONDS (12.5-14.3)
[2020-08-22] MEDS ORDERED: FUROSEMIDE 20MG/2ML VIAL (J1940) IV ONE (10:20)
--- NOTE | 2020-08-22 11:23 | IPNPDOC ---
Date Seen The patient was seen on 08/22/20. Progress Note SUBJECTIVE: patient was seen and examined at bedside this morning. Patient appears visibly confused and is requesting transfer to [facility], or to otherwise leave AMA and he will drive himself. While he is able to tell me the accurate place, date, time and the need for surgery as well as circumstances of his admission, I do be believe that the patient is not practically thinking about his condition. I spoke to his daughter Amber Bedolla (tel [phone]), who reports a history of dementia, and not infrequent periods of confusion and difficult behaviour. She is in support of surgery, and is at bedside with her father. He was given a small dose of ativan and had CT head performed, without acute findings. He is not actively short of breath, and denies chest pain, palpitation, headache, n/v/d. OBJECTIVE PHYSICAL EXAMINATION: VITAL SIGNS: please see below General: NAD, comfortable HEENT: PERRLA, EOMI, sclerae clear Neck: supple, normal ROM, no JVD Respiratory: lungs CTAB, wheeze improved CVS: RRR, normal S1, S2, no murmurs Abdo: soft, no masses, no hepatosplenomegaly, BS+, no rebound tenderness Extremities: 1+ edema, L hip ROM limited by Pain, site of fx MSK: no joint deformities, normal ROM Neuro: no focal neuro deficits, moving all 4 extremities, CN2-12 intact. Stren gth 5/5 in all 4 extremities. No nystagmus. Psych: calm, cooperative, AAO x 3 LABORATORY DATA, IMAGING STUDIES, MICROBIOLOGY: Please see below. Echocardiogram: ordered on 08/20/20 DVT prophylaxis ordered?: SCDs, TEDs. ASSESSMENT AND PLAN: 80 y/o male with a pmh of htn, prostate and bladder ca s/p resection, extensive smoking history and suspected COPD who reports to the ED with a cc of hip pain after a mechanical fall last night. Patient found to have broken left femur on imaging. PROBLEMS: #pathological L intertrochanteric proximal femur fx - seen on XR imaging. S/p mechanical fall. uses walker at home - D/w Dr. Franklin. Plan for ORIF on 08/22/20 in AM - will start on 2g sodium diet, NPO at midnight on 08/21/20 - RCRI score 0 for perioperative cardiac complications. I spoke to Dr. Zarco who gave prelim read of echo. Normal EF. No significant valve disease. Limited study. BNP slightly elevated at 455, which is not diagnostic in this age category. Based on RCRI score of 0, 30-day risk of , IA or cardiac arrest is 3.9%. - given significant morbidity and mortality associated with femoral neck fractures, I believe benefits of surgery outweigh the risks. - Dw Dr. Franklin, will assess for metastatic lesion at site of fx given extensive cancer hx - Dw Dr. Monte, recommended MRI w and wo femur to assess for mets. If not available, may obtain CT. - no metastatic disease seen on MRI - c/w DVT ppx - pain control #Acute COPD exacerbation - c/w solumedrol 60 mg IV q8h - c/w duonebs q4h prn - start patient on albuterol inh and symbicort - continous pulse ox, tele - will hold carvedilol in setting of acute COPD exacerbation - will need pulm referral on DC - DC IV solumedrol, wheezing resolved. Will continue wtih PO prednisone after IR #Delirium superimposed on dementia - per daughter, frequent bouts of delirium - likely worsening by IV steroids for COPD exacerbation - on serax for etoh withdrawal - now more calm, daughter at bedside. Able to reorient. #hyponatremia - Na 133 - possible SIADH in setting of suspected lung ca, known bladder ca - CTA chest negative for lung mass - takes HCTZ at home. Stopped. - sodium improveing with stopping HCTZ #Urinary retention - PVRs~200 cc - insert indwelling gonzalez - will hold oxybutinin for now - order bladder and kidney US #Etoh use disorder - CIWA protocol - withdrawal precautions - on serax 10 mg PO TID - CIWA 0 this morning. #nicotine depence - nicotine patch #suspected L upper lobe mass - will obtain CT chest for better evaluation - negative for masses on 08/20/20 - extensive smoking hx #Edema b/l - check bilateral venous duplex - negative for DVT - BNP < 300 - echo ordered to r/o pulm htn - compressions socks #hx of bladder neoplasm(2011), prostate ca (2004) - f/u urology and oncology op - may need PET CT vs Bone scan. Bo Monte. DVT pxp: SCDs. TEDs. heparin. Dispo: I spoke to patient's daughter at bedside, Amber, she believes that patient needs subacute rehab after OR, while she is able to refurbish his living quarters in her home for him. She has had a difficult time re-orienting him and she is optimizing his occupational situation. I have consulted PFS services for assistance with this matter. VS, I&O, 24H, Fishbone Vital Signs/I&O Vital Signs Date Time Temp Pulse Resp B/P (MAP) Pulse Ox O2 Delivery O2 Flow Rate FiO2 08/22/20 06:45 97.4 83 24 134/72 (92) 97 Nasal Cannula 1.0 I&O- Last 24 Hours up to 6 AM 08/22/20 06:00 Intake Total 900 ml Output Total 825 ml Balance 75 ml Laboratory Data 24H LABS Laboratory Tests 2 08/22/20 05:03: Nucleated Red Blood Cells % (auto) 0.0, Anion Gap 4L, Glomerular Filtration Rate > 60.0, Calcium Level 8.6L, Troponin I < 0.02, DW-Iac-I-Type Natriuretic Peptide 455H 08/22/20 08:23: Prothrombin Time 13.8, Prothromb Time International Ratio 1.04, Lactic Acid Level 1.1 CBC/BMP Laboratory Tests 08/22/20 05:03 Microbiology Microbiology 08/22/20 Blood Culture, Received Pending 08/22/20 Blood Culture, Received Pending 08/20/20 Urine Culture, Received Pending SVETA ARAUJO MD Aug 22, 2020 11:23
[2020-08-22] MEDS ORDERED: ceFAZolin 2 GM/D5W 50 ML IV BAG (J0690 PER 500MG) As Ordered ONE (13:01)
[2020-08-22] MEDS ORDERED: TRANEXAMIC ACID 100 MG/ML 10ML VIAL As Ordered ONE (14:24)
[2020-08-22] MEDS ORDERED: CALCIUM CHLORIDE 10% 1 GM/10 ML SYR As Ordered ONE (15:28)
[2020-08-22] MEDS ORDERED: MIDAZOLAM INJ 2MG/2ML VIAL (J2250 PER 1MG) As Ordered ONE (15:28)
[2020-08-22] MEDS ORDERED: KETAMINE HCL 200 MG/20 ML VIAL As Ordered ONE (15:28)
[2020-08-22] MEDS ORDERED: ePHEDrine SULFATE 25 MG/5 ML(5MG/ML) SYRINGE As Ordered ONE (15:28)
[2020-08-22] MEDS ORDERED: LIDOCAINE 2% 100MG/5ML SDV (FOR ANES.) As Ordered ONE (15:28)
[2020-08-22] MEDS ORDERED: ONDANSETRON 4MG/2ML VIAL As Ordered ONE (15:28)
[2020-08-22] MEDS ORDERED: PHENYLephrine 500MCG 5ML (100MCG/ML) SYRINGE As Ordered ONE (15:28)
[2020-08-22] MEDS ORDERED: propofoL 200 MG/20 ML VIAL As Ordered ONE (15:28)
[2020-08-22] MEDS ORDERED: fentaNYL 100 MCG/2 ML INJECTION (J3010) As Ordered ONE (15:29)
--- NOTE | 2020-08-22 15:32 | REP ---
INDICATION: LEFT HIP FX CASE IN OR. COMPARISON: Comparison left hip radiographs August 20, 2020.. TECHNIQUE: Fourteen views. 220.4 seconds of fluoroscopy time is reported. FINDINGS: A sequence of 14 last image hold fluoroscopically obtained spot radiographs of the hip document open reduction internal fixation for intertrochanteric fracture. IMPRESSION: Procedural imaging. <Electronically signed by Samuel Walls > 08/22/20 2822
[2020-08-22] MEDS ORDERED: fentaNYL 100 MCG/2 ML INJECTION (J3010) IV PRN (15:40)
[2020-08-22] MEDS ORDERED: HYDROMORPHONE HCL 0.5 MG/ 0.5 ML SYRINGE (J1170 PER 1) IV PRN (15:40)
[2020-08-22] MEDS ORDERED: ONDANSETRON 4MG/2ML VIAL IV PRN (15:40)
[2020-08-22] MEDS ORDERED: oxyCODONE 5MG TAB PO PRN (15:40)
[2020-08-22] MEDS ORDERED: LR 1,000 ML IV SCH (16:35)
--- NOTE | 2020-08-22 19:27 | RO ---
OPERATIVE NOTE DATE OF OPERATION: 08/22/2020 TIME: 1 p.m. PREOPERATIVE DIAGNOSIS: Left hip intertrochanteric fracture with comminution. POSTOPERATIVE DIAGNOSIS: Left hip intertrochanteric fracture with comminution. NAME OF OPERATION: Left hip cephalomedullary nail placement, intermediate length. SURGEON: Alexey Franklin MD ENTOMOLOGY TEACHER: None. SUPERVISING ATTENDING: Alexey Franklin MD FINDINGS: Comminuted left intertrochanteric fracture. INDICATIONS: This was a 80-year-old male with a past medical history of hypertension, prostate and bladder cancer, status post resection, who reported to the ED with a left hip intertrochanteric fracture with comminution. The patient sustained a ground level fall on the August,. The patient was not dizzy prior to the fall. He does remember falling on his way back to bed while using the bathroom during the evening. The patient's only complaint was left hip pain that does not radiate. The patient presented to the [facility] for further evaluation and treatment of his left hip fracture. ANESTHESIA: GETA. TOURNIQUET TIME: None used. ESTIMATED BLOOD LOSS: 100 mL. IV FLUIDS: Please see anesthesia report. IV ANTIBIOTICS: Please see anesthesia report. IMPLANTS: Synthes. CULTURES: None. SPECIMENS: None. DESCRIPTION OF PROCEDURE: The patient was met in the preoperative holding area where the patient's operative extremity was signed, the patient's consent was confirmed to be correct, and the patient's identity was confirmed to be correct. The patient was then transported to the operating theater where he was placed supine on a fracture table. A safety strap secured the patient to the bed. All bony prominences were well padded. The contralateral lower extremity had an SCD placed. A timeout was called which confirmed the correct patient, correct operative extremity and correct consent. All staff were in agreement. The patient was then draped in the usual sterile fashion. We began the procedure by obtaining an AP and lateral view of the patient's left hip. Through the translation of the femoral shaft relative to the calcar of the proximal femur, I made a small skin incision overlying the lateral aspect of the femur just distal to the fracture, incised the IT band and placed a Tinoco elevator on the anterior aspect of the proximal femur. I then introduced a bone hook and used the bone hook to lateralize the femur in order to obtain a previsional reduction of the left intertrochanteric fracture. After performing this, I then made a small skin incision overlying the proximal aspect of the fracture along the basicervical region of the anterior femoral neck. I used a hemostat to widen the passageway and placed a ballpoint spike instrument in order to push the proximal aspect of the fracture out of flexion in order to align it with the femoral shaft. After performing this fluoroscopic percutaneous reduction, I then made a skin incision approximately three fingerbreadths proximal to the tip of the greater trochanter. Using a scalpel, I incised the IT band. I then placed the awl just medial to the apex of the tip of the greater trochanter on the proximal aspect in line with the femoral neck, the shaft and lateral views. Using the cannulated awl as an aid, I then introduced a threaded guide pin at the proximal tip of the greater trochanter down to the level of the lesser troch and in line in the femoral neck and shaft in the lateral view. At this point in time, I removed the awl and introduced an entry reamer into position which gained access to the proximal aspect of the femur. After performing this, I then introduced a ball-tipped guidewire down the length of the femoral shaft and used a 60 mm reamer in order to ream a superomedial osseous greater trochanter bone which may kick the fracture into valgus. After performing this, I maintained the ball-tipped guidewire in position and passed the intermediate length nail over the ball-tipped guidewire. Once this was correctly into position and advanced appropriately, I then attached the jig end of the nail which would be used for a lag screw threaded guide pin placement. Using AP and lateral views, I introduced the threaded guide pin center/center on the lateral view and just inferior to the center/center on the AP view in order to capture some of the calcar dense bone. This was introduced through approximately 10 mm from the apex of the femoral head. After introducing the threaded guide pin, I then measured a 105 mm length which would be used for our lag screw. I then over-reamed with a cannulated drill the threaded guide pin in order to create a passageway for the lag screw. I then manually introduced the cannulated lag screw into position which provided provisional definitive fixation of our fracture. At this point in time, I removed the screwdriver from the lag screw which was positioned appropriately. I then took traction off of the fracture table in order to let the intertrochanteric fracture settle. I compressed across the fracture and then placed a set screw which was then locked into position. I turned my attention to the distal interlocking screw. I placed a triple sleeve through the cephalomedullary nail jig and placed a 36 mm distal interlocking laboratory associate through the jig. I then removed our jig and took final fluoroscopic images which demonstrated we were satisfied with our fracture reduction as well as our implant placement. I copiously irrigated all the surgical incisions which included four percutaneous incisions. I closed the IT band using 0 Vicryl. I closed the epidermis using 4-0 Monocryl running suture. I then placed medical glue over all the surgical incisions and this dry. The patient was then awakened from anesthesia and transported to the postanesthesia care unit. The patient will be weightbearing as tolerated to the left lower extremity at this point in time. He will follow the left hip cephalomedullary nail placement rehabilitative protocol. He will be given his pain medications by the internal medicine team. I recommend 81 mg of aspirin once a day starting on the August, for 30 days or the equivalent for DVT chemoprophylaxis which will be prescribed by his internal medicine team. The patient will follow up at the [facility] orthopedic clinic in two weeks on the August, for a postoperative wound check.
[2020-08-22] MEDS: NICOTINE 21MG/24HR 1 EA TRANSDERMAL TD PRN (21:41)
[2020-08-22] MEDS: MOM 30ML SUSPENSION UDC PO PRN (21:41)
[2020-08-22] MEDS: hydrOXYzine 25 MG TAB PO PRN (21:41)
[2020-08-22] MEDS: ACETAMINOPHEN TAB 650MG DOSE (2X325MG) PO PRN (21:42)
[2020-08-23] MEDS: KETOROLAC 30 MG/ML 1ML VIAL IV PRN ×3 (01:30→23:10)
[2020-08-23 02:00] VITALS: BP 123/68
[2020-08-23] MEDS ORDERED: LORazepam 2 MG/ML VIAL As Ordered ONE ×2 (02:05→08:44)
[2020-08-23] MEDS: LORazepam 2 MG/ML VIAL IV PRN ×3 (02:09→21:44)
[2020-08-23 06:00] VITALS: BP 100/57
[2020-08-23] MEDS: SYMBICORT 80/4.5MCG INHALER 6GM INH SCH ×2 (07:23→20:00)
[2020-08-23 07:40] LABS: HEMATOCRIT 27.3 % (42.0-52.0); HEMOGLOBIN 9.6 g/dl (13.5-17.5); MEAN CORPUSCULAR HEMOGLOBIN 32.7 pg (27.0-33.0); MEAN CORPUSCULAR HGB CONC 35.2 g/dl (32.0-36.5); MEAN CORPUSCULAR VOLUME 92.9 fl (80.0-96.0); PLATELET COUNT, AUTOMATED 196 10^3/uL (150-450); RED BLOOD COUNT 2.94 10^6/uL (4.30-6.10); WHITE BLOOD COUNT 7.7 10^3/uL (4.0-10.0)
[2020-08-23 07:56] LABS: BLOOD UREA NITROGEN 41 MG/DL (7-18); CALCIUM LEVEL 8.7 MG/DL (8.8-10.2); CARBON DIOXIDE LEVEL 32 MEQ/L (21-32); CHLORIDE LEVEL 101 MEQ/L (98-107); CREATININE FOR GFR 0.67 MG/DL (0.70-1.30); GLOMERULAR FILTRATION RATE > 60.0 (>42); GLUCOSE, FASTING 91 MG/DL (70-100); POTASSIUM SERUM 4.2 MEQ/L (3.5-5.1); SODIUM LEVEL 137 MEQ/L (136-145)
[2020-08-23] MEDS: cefTRIAXone SOD 1 GM in D5W MINI-BAG PLUS 50 ML IV SCH (08:46)
[2020-08-23] MEDS: NICOTINE 21MG/24HR 1 EA TRANSDERMAL TD PRN (08:48)
[2020-08-23] MEDS: FOLIC ACID 1 MG TAB PO SCH ×2 (08:48→09:00)
[2020-08-23] MEDS: DOCUSATE SODIUM 100MG CAPSULE PO SCH ×3 (08:48→20:37)
[2020-08-23] MEDS: lisinopriL 40 MG TAB PO SCH ×2 (08:48→09:00)
[2020-08-23] MEDS: CARVedilol 12.5 MG TAB PO SCH ×2 (08:53→20:37)
[2020-08-23] MEDS: MULTIVITAMINS/MINERALS THERAP 1 TAB PO SCH ×2 (08:54→09:00)
[2020-08-23] MEDS: HEPARIN SOD (PORCINE) 5000UNITS/ML 1ML VIAL/SYRINGE SQ SCH ×3 (08:54→20:44)
[2020-08-23] MEDS: NYSTATIN 100,000 UNITS/GM TOPICAL PWD 15 GM TOP SCH ×2 (08:54→20:37)
[2020-08-23] MEDS: oxyBUTYnin *DITROPAN XL* 5 MG TABCR PO SCH (09:00)
[2020-08-23] MEDS: OXAZEPAM 10 MG CAP PO SCH ×3 (09:00→20:37)
[2020-08-23] MEDS ORDERED: FUROSEMIDE 40MG/4ML VIAL (J1940) IV ONE (10:15)
[2020-08-23 14:00] VITALS: BP 156/72; O2SAT 90
--- NOTE | 2020-08-23 14:52 | IPNPDOC ---
Date Seen The patient was seen on 08/23/20. Progress Note SUBJECTIVE: patient was seen and examined at bedside this morning. Postop day 1 for left hip fracture. Patient is much more pleasant this morning. He still pulling at his Gonzalez, but is not leaving to leave AMA. He does have a lot upper airway sounds and continues to have trouble clearing secretions. I feel that we can discontinue the Gonzalez and do a trial of void today. We'll discontinue teleme try as this will likely reduce the agitation of having to do with the chest leads. I discussed with his daughter, patient has been having trouble controlling his BP in past few weeks, and had measurements in the 200s in weeks leading to admission. She states that his speech also became more garbled in the same time frame. OBJECTIVE PHYSICAL EXAMINATION: VITAL SIGNS: please see below General: NAD, comfortable HEENT: PERRLA, EOMI, sclerae clear Neck: supple, normal ROM, no JVD Respiratory: lungs CTAB, wheeze improved CVS: RRR, normal S1, S2, no murmurs Abdo: soft, no masses, no hepatosplenomegaly, BS+, no rebound tenderness Extremities: 1+ edema, L hip ROM limited by Pain, site of fx MSK: no joint deformities, normal ROM Neuro: no focal neuro deficits, moving all 4 extremities, CN2-12 intact. Strength 5/5 in all 4 extremities. No nystagmus. Psych: calm, cooperative, AAO x 3 LABORATORY DATA, IMAGING STUDIES, MICROBIOLOGY: Please see below. CT head wo contrast (08/22/20/): Generalized volume loss. Vascular calcification and mild small vessel changes. No acute intracranial abnormality seen.. CXR (08/23/20): IMPRESSION: Left basilar subsegmental atelectatic changes suspected. Early pneumonia cannot be ruled out. A small left pleural effusion cannot be ruled out. Echocardiogram: ordered on 08/20/20 DVT prophylaxis ordered?: SCDs, TEDs. ASSESSMENT AND PLAN: 80 y/o male with a pmh of htn, dementia, prostate and bladder ca s/p resection, extensive smoking history and suspected COPD who reports to the ED with a cc of hip pain after a mechanical fall last night. Patient found to have broken left femur on imaging. PROBLEMS: #pathological L intertrochanteric proximal femur fx - seen on XR imaging. S/p mechanical fall. uses walker at home - no metastatic disease seen on MRI - POD #1 - PT/OT ordered - c/w DVT ppx - pain control #Acute COPD exacerbation - c/w solumedrol 60 mg IV q8h - c/w duonebs q4h prn - start patient on albuterol inh and symbicort - continous pulse ox, tele - will need pulm referral on DC - DC IV solumedrol, wheezing resolved. - now on prednisone 40 mg daily - resume corge 25 mg BID #Delirium superimposed on dementia - per daughter, frequent bouts of delirium - likely worsening by IV steroids for COPD exacerbation - CT head was negative on 08/22/20 - on serax for etoh withdrawal, will taper down - start seroquel 25 mg PO qpm #Aspiration pneumonia - CXR showing possible early pneumonia in LLL - patietn on ceftriaxone day 2 for e coli UTI - add metronidazole 500 mg IV q8h for aspiration pna - check sputum - check blood cultures, CRP, procal #Aspiration - ordered speech therapy eval - CT head from 08/22/20 did not show CVA - will order non contrast MRI/MRA brain #hyponatremia - now resolved after DC HCTZ - possible SIADH in setting of suspected lung ca, known bladder ca - CTA chest negative for lung mass - takes HCTZ at home. Stopped. #Urinary retention - PVRs~200 cc - insert indwelling gonzalez - will hold oxybutinin for now - order bladder and kidney US - no hydro - will DC gonzalez today and perform trial of void. PVR ordered - likely 2/2 UTI - urine culture grew e coli #E coli UTI - start ceftriaxone 08/23/20 #Etoh use disorder - CIWA protocol - withdrawal precautions - on serax 10 mg PO TID, taper down to 10 mg BID - CIWA 0 this morning. #nicotine depence - nicotine patch #suspected L upper lobe mass - will obtain CT chest for better evaluation - negative for masses on 08/20/20 - extensive smoking hx #Edema b/l - check bilateral venous duplex - negative for DVT - BNP initially < 300, now 425. - gave dose lasix 40 mg IV, will continue prn administrations due to labile bp - echo ordered to r/o pulm htn - compressions socks #hx of bladder neoplasm(2011), prostate ca (2005) - f/u urology and oncology op - may need PET CT vs Bone scan. Dw Dr. Monte. DVT pxp: SCDs. TEDs. heparin. Dispo: I spoke to patient's daughter at bedside, Amber, she believes that yuliet ent needs subacute rehab after OR, while she is able to refurbish his living quarters in her home for him. She has had a difficult time re-orienting him and she is optimizing his occupational situation. I have consulted PFS services for assistance with this matter. VS, I&O, 24H, Fishbone Vital Signs/I&O Vital Signs Date Time Temp Pulse Resp B/P (MAP) Pulse Ox O2 Delivery O2 Flow Rate FiO2 08/23/20 14:07 20 2.0 08/23/20 08:53 90 112/69 08/23/20 06:00 97.7 91 Nasal Cannula I&O- Last 24 Hours up to 6 AM 08/23/20 06:00 Intake Total 1555 ml Output Total 1375 ml Balance 180 ml Laboratory Data 24H LABS Laboratory Tests 2 08/23/20 06:14: Nucleated Red Blood Cells % (auto) 0.0, Anion Gap 4L, Glomerular Filtration Rate > 60.0, Calcium Level 8.7L CBC/BMP Laboratory Tests 08/23/20 06:14 Microbiology Microbiology 08/22/20 Blood Culture - Preliminary, Resulted No growth after 24 hours . All specim... 08/22/20 Blood Culture - Preliminary, Resulted No growth after 24 hours . All specim... 08/20/20 Urine Culture - Final, Complete Escherichia Coli SVETA ARAUJO MD Aug 23, 2020 14:52
[2020-08-23] MEDS: predniSONE 20 MG TAB PO SCH (15:10)
[2020-08-23 16:49] VITALS: BP 115/67; O2SAT 95
[2020-08-23] MEDS ORDERED: FUROSEMIDE 20MG/2ML VIAL (J1940) IV ONE (17:10)
[2020-08-23] MEDS: QUEtiapine FUMARATE 25 MG TAB PO SCH (17:41)
--- NOTE | 2020-08-23 17:43 | REP ---
INDICATION: SOB. COMPARISON: Multiple latest yesterday TECHNIQUE: Portable FINDINGS: The technique utilized in obtaining the radiograph has magnified the cardiac silhouette and accentuated the interstitial markings. Minimal left basilar opacities have developed since the last exam. There is slight left CP angle blunting. The right lung is stable. There is mild cardiomegaly accentuated by technique. The patient is tilted rotated to the left. There is no change in the osseous structures. IMPRESSION: Left basilar subsegmental atelectatic changes suspected. Early pneumonia cannot be ruled out. A small left pleural effusion cannot be ruled out. <Electronically signed by Prasanth Aranda > 08/23/20 [id number]
[2020-08-23] MEDS: metroNIDAZOLE 500 MG in IV 1 EA IV SCH (20:36)
[2020-08-23 21:00] VITALS: O2SAT 93
[2020-08-23 22:00] VITALS: BP 113/65
[2020-08-24] MEDS: metroNIDAZOLE 500 MG in IV 1 EA IV SCH ×2 (04:25→12:05)
[2020-08-24 06:00] VITALS: BP 154/79
[2020-08-24] MEDS: KETOROLAC 30 MG/ML 1ML VIAL IV PRN (06:21)
[2020-08-24] MEDS: HEPARIN SOD (PORCINE) 5000UNITS/ML 1ML VIAL/SYRINGE SQ SCH ×3 (06:21→22:03)
[2020-08-24 06:41] LABS: HEMATOCRIT 26.2 % (42.0-52.0); HEMOGLOBIN 9.2 g/dl (13.5-17.5); LYMPH # 0.5 10^3/uL (1.5-5.0); LYMPH % 5.8 % (24.0-44.0); MEAN CORPUSCULAR HEMOGLOBIN 31.9 pg (27.0-33.0); MEAN CORPUSCULAR HGB CONC 35.1 g/dl (32.0-36.5); MONO # 0.6 10^3/uL (0.0-0.8); MONO % 7.1 % (2.0-8.0); NEUTROPHILS # 7.6 10^3/uL (1.5-8.5); NEUTROPHILS % 86.9 % (36.0-66.0); PLATELET COUNT, AUTOMATED 218 10^3/uL (150-450); RED BLOOD COUNT 2.88 10^6/uL (4.30-6.10); WHITE BLOOD COUNT 8.7 10^3/uL (4.0-10.0)
[2020-08-24 07:04] LABS: BLOOD UREA NITROGEN 40 MG/DL (7-18); CALCIUM LEVEL 8.6 MG/DL (8.8-10.2); CARBON DIOXIDE LEVEL 32 MEQ/L (21-32); CHLORIDE LEVEL 101 MEQ/L (98-107); CREATININE FOR GFR 0.64 MG/DL (0.70-1.30); GLOMERULAR FILTRATION RATE > 60.0 (>42); GLUCOSE, FASTING 113 MG/DL (70-100); POTASSIUM SERUM 3.8 MEQ/L (3.5-5.1); SODIUM LEVEL 138 MEQ/L (136-145)
[2020-08-24] MEDS: SYMBICORT 80/4.5MCG INHALER 6GM INH SCH ×2 (07:36→19:24)
[2020-08-24 09:00] VITALS: O2SAT 96
[2020-08-24] MEDS: predniSONE 20 MG TAB PO SCH (10:43)
[2020-08-24] MEDS: NICOTINE 21MG/24HR 1 EA TRANSDERMAL TD PRN (10:43)
[2020-08-24] MEDS: OXAZEPAM 10 MG CAP PO SCH (10:43)
[2020-08-24] MEDS: DOCUSATE SODIUM 100MG CAPSULE PO SCH (10:43)
[2020-08-24] MEDS: FOLIC ACID 1 MG TAB PO SCH (10:43)
[2020-08-24] MEDS: oxyBUTYnin *DITROPAN XL* 5 MG TABCR PO SCH (10:44)
[2020-08-24] MEDS: MULTIVITAMINS/MINERALS THERAP 1 TAB PO SCH (10:44)
[2020-08-24] MEDS: cefTRIAXone SOD 1 GM in D5W MINI-BAG PLUS 50 ML IV SCH (10:44)
[2020-08-24] MEDS: NYSTATIN 100,000 UNITS/GM TOPICAL PWD 15 GM TOP SCH ×2 (10:45→22:25)
[2020-08-24] MEDS: lisinopriL 40 MG TAB PO SCH (10:48)
[2020-08-24] MEDS: CARVedilol 12.5 MG TAB PO SCH ×2 (10:48→22:03)
[2020-08-24] MEDS ORDERED: BISACODYL 10 MG SUPP PR ONE (12:00)
[2020-08-24] MEDS: SENOKOT S TAB PO SCH ×2 (12:04→22:02)
[2020-08-24 14:00] VITALS: BP 120/65
[2020-08-24 16:30] VITALS: O2SAT 93
[2020-08-24] MEDS: QUEtiapine FUMARATE 25 MG TAB PO SCH (17:56)
[2020-08-24] MEDS ORDERED: OXAZEPAM 10 MG CAP PO SCH (18:00)
[2020-08-24] MEDS: IPRATROPIUM 0.5MG/ALBUTEROL 2.5MG INH SOL UD 3ML (DUONEB) NEB SCH (20:00)
[2020-08-24] MEDS ORDERED: ALBUTEROL SULFATE 2.5 MG/0.5 ML INH NEB SOLN NEB PRN (20:05)
--- NOTE | 2020-08-24 20:26 | IPNPDOC ---
Subjective Date Seen The patient was seen on 08/24/20. Subjective Chief Complaint/HPI Did not offer any complaints today, asking for coffee. More awake in the afternoon and daulghte was able to feed him dinner. Objective Physical Examination General Exam: Positive: Cooperative, No Acute Distress, Other (awake but easily falling asleep) ENT Exam: Positive: Atraumatic Neck Exam: Positive: Supple; Negative: JVD, thyromegaly Chest Exam: Positive: Rhonchi, Wheezing Heart Exam: Positive: Rate Normal, Regular Rhythm, Normal S1, Normal S2; Negative: Murmurs, Rubs Abdomen Exam: Positive: Normal bowel sounds, Soft; Negative: Tenderness, Hepatospenomegaly Extremity Exam: Positive: Edema (bilateral trace); Negative: Clubbing, Cyanosis Skin Exam: Positive: Other skin issue (por hygiene, dirty nails. ) Assessment /Plan Assessment 80 y/o male with a PMH of HTN, dementia, prostate and bladder ca s/p resection, impaired mobility using walker and motorized WC at baseline, extensive smoking history and suspected COPD presented to ED with a cc of hip pain after a mechanical fall at home. Patient found to have left intertrochanteric fracture of femur. He was also found to have COPD exacerbation and Ecoli UTI. Comminuted Left intertrochanteric fracture of femur S/p mechanical fall. uses walker and motorized WC. no metastatic disease seen on MRI s/p Left hip cephalomedullary nail placement, intermediate length on 08/22/20 pain control with tylenol and norco COPD exacerbation resolving continue prednisone, duonebs, albuterol prn. Delirium superimposed on dementia probably due to post operative anesthetic effect, pain, steroids, hospitalization with unfamiliar surroundings. was very sedated as was getting serax and ativan with seroquel somnolence resolved after stopping serax. On seroquel only Excessive somnolence/ dysphagia from 08/22/20 CT head from 08/22/20 did not show CVA ordered MRI/MRA brain to rule out stroke still pending. I think this was most likely due to multiple sedating medications that he was getting for his delirium. Left basilar atelectasis No pneumonia Procal normal. will dc metronidazole continue ceftriaxone for the UTI. Dysphagia Diet as per ST, pureed, necter thickened may be able to do better when more awake. Acute Urinary retention postoperative resolved continue oxybutinin. E coli UTI ceftriaxone Hypertension cont lisinopril, coreg Etoh use disorder 3-4 beers most days No signs of withdrawal stopped serax as too sedated continue CIWA Nicotine dependence nicotine patch H/o bladder neoplasm(2011), prostate ca (2004) f/u urology and oncology op DVT pxp: SCDs. TEDs. heparin. Dispo: Sub acute rehab. Plan/VTE VTE Prophylaxis Ordered?: Yes VS, I&O, 24H, Fishbone Vital Signs/I&O Vital Signs Date Time Temp Pulse Resp B/P (MAP) Pulse Ox O2 Delivery O2 Flow Rate FiO2 08/24/20 16:30 93 Nasal Cannula 2.0 08/24/20 14:00 97.7 76 16 120/65 (83) I&O- Last 24 Hours up to 6 AM 08/24/20 07:00 Intake Total 250 ml Output Total 332 ml Balance -82 ml Laboratory Data 24H LABS Laboratory Tests 2 08/24/20 06:25: Immature Granulocyte % (Auto) 0.2, Neutrophils (%) (Auto) 86.9H, Lymphocytes (%) (Auto) 5.8L, Monocytes (%) (Auto) 7.1, Eosinophils (%) (Auto) 0.0, Basophils (%) (Auto) 0.0, Neutrophils # (Auto) 7.6, Lymphocytes # (Auto) 0.5L, Monocytes # (Auto) 0.6, Eosinophils # (Auto) 0.0, Basophils # (Auto) 0.0, Nucleated Red Blood Cells % (auto) 0.0, Anion Gap 5L, Glomerular Filtration Rate > 60.0, Calcium Level 8.6L CBC/BMP Laboratory Tests 08/24/20 06:25 Microbiology Microbiology 08/23/20 Blood Culture - Preliminary, Resulted No growth after 24 hours . All specim... 08/23/20 Blood Culture - Preliminary, Resulted No growth after 24 hours . All specim... 08/22/20 Blood Culture - Preliminary, Resulted No Growth after 48 hours. All Specime... 08/22/20 Blood Culture - Preliminary, Resulted No Growth after 48 hours. All Specime... 08/20/20 Urine Culture - Final, Complete Escherichia Coli DEBBI AVILES MD Aug 24, 2020 20:26
[2020-08-24 21:00] VITALS: O2SAT 94
--- NOTE | 2020-08-24 21:47 | REPVR ---
PROCEDURE INFORMATION: Exam: MR Head Without Contrast Exam date and time: 08/24/2020 8:15 PM Age: 80 years old Clinical indication: Altered mental status/memory loss; Confusion or disorientation; Additional info: R/O CVA TECHNIQUE: Imaging protocol: MR of the head without contrast. COMPARISON: CT Head without contrast 08/22/2020 8:53 AM FINDINGS: Limitations: The exam is degraded by patient motion artifact. Brain: There is advanced cerebral atrophy. Changes of chronic white matter microvascular disease are present. No signs of a recent infarction or hemorrhage. No midline shift or mass effect. Cerebral ventricles: Normal. No ventriculomegaly. Bones/joints: Unremarkable. Paranasal sinuses: Normal as visualized. No acute sinusitis. Mastoid air cells: Normal as visualized. No mastoid effusion. Soft tissues: Unremarkable. IMPRESSION: 1. Motion limited exam. 2. Atrophy and chronic white matter changes. No acute intracranial abnormality. Electronically signed by: Isaías Romero On 08/24/2020 21:47:51 PM
--- NOTE | 2020-08-24 21:53 | REPVR ---
PROCEDURE INFORMATION: Exam: MRA Head Without Contrast; Arteriography Exam date and time: 08/24/2020 8:15 PM Age: 80 years old Clinical indication: Cognitive deficit; Altered mental status; Additional info: R/O stenosis TECHNIQUE: Imaging protocol: Magnetic resonance angiography head without contrast. Exam focused on the arteries. COMPARISON: CT Head without contrast 08/22/2020 8:53 AM FINDINGS: ANTERIOR CIRCULATION: Right internal carotid artery: Intracranial segment is patent with no significant stenosis. No aneurysm. Right middle cerebral artery: No occlusion or significant stenosis. No aneurysm. Right anterior cerebral artery: The right anterior cerebral artery A1 segment is absent. Distal right anterior cerebral artery is supplied through the A-comm and is patent. Left internal carotid artery: Intracranial segment is patent with no significant stenosis. No aneurysm. Left middle cerebral artery: No occlusion or significant stenosis. No aneurysm. Left anterior cerebral artery: No occlusion or significant stenosis. No aneurysm. POSTERIOR CIRCULATION: Right vertebral artery: No occlusion or significant stenosis. No aneurysm. Left vertebral artery: No occlusion or significant stenosis. No aneurysm. Basilar artery: No occlusion or significant stenosis. No aneurysm. Right posterior cerebral artery: No occlusion or significant stenosis. No aneurysm. Left posterior cerebral artery: No occlusion or significant stenosis. No aneurysm. IMPRESSION: No significant stenosis, aneurysm, or large vessel occlusion. Electronically signed by: Isaías Romero On 08/24/2020 21:52:59 PM
[2020-08-24 22:00] VITALS: BP 134/92
[2020-08-25] MEDS: IPRATROPIUM 0.5MG/ALBUTEROL 2.5MG INH SOL UD 3ML (DUONEB) NEB SCH ×5 (02:00→19:37)
[2020-08-25] MEDS: HEPARIN SOD (PORCINE) 5000UNITS/ML 1ML VIAL/SYRINGE SQ SCH ×2 (05:48→21:05)
[2020-08-25 06:00] VITALS: BP 140/64
[2020-08-25 06:27] LABS: BLOOD UREA NITROGEN 45 MG/DL (7-18); CALCIUM LEVEL 8.3 MG/DL (8.8-10.2); CARBON DIOXIDE LEVEL 32 MEQ/L (21-32); CHLORIDE LEVEL 103 MEQ/L (98-107); CREATININE FOR GFR 0.59 MG/DL (0.70-1.30); GLOMERULAR FILTRATION RATE > 60.0 (>42); GLUCOSE, FASTING 117 MG/DL (70-100); POTASSIUM SERUM 3.3 MEQ/L (3.5-5.1); SODIUM LEVEL 137 MEQ/L (136-145)
[2020-08-25] MEDS ORDERED: POTASSIUM CHLORIDE 10 MEQ SR TABLET PO ONE (06:50)
[2020-08-25] MEDS: FOLIC ACID 1 MG TAB PO SCH (08:01)
[2020-08-25] MEDS: SENOKOT S TAB PO SCH ×2 (08:01→21:05)
[2020-08-25] MEDS: MULTIVITAMINS/MINERALS THERAP 1 TAB PO SCH (08:01)
[2020-08-25] MEDS: CARVedilol 12.5 MG TAB PO SCH ×2 (08:01→21:04)
[2020-08-25] MEDS: predniSONE 10 MG TAB PO SCH (08:01)
[2020-08-25] MEDS: cefTRIAXone SOD 1 GM in D5W MINI-BAG PLUS 50 ML IV SCH (08:03)
[2020-08-25] MEDS: NICOTINE 21MG/24HR 1 EA TRANSDERMAL TD PRN (08:03)
[2020-08-25] MEDS: oxyBUTYnin *DITROPAN XL* 5 MG TABCR PO SCH (08:03)
[2020-08-25] MEDS: lisinopriL 40 MG TAB PO SCH (08:03)
[2020-08-25] MEDS: NYSTATIN 100,000 UNITS/GM TOPICAL PWD 15 GM TOP SCH ×2 (08:04→21:05)
[2020-08-25 09:00] VITALS: O2SAT 90
--- NOTE | 2020-08-25 12:10 | IPNPDOC ---
Subjective Date Seen The patient was seen on 08/25/20. Subjective Chief Complaint/HPI Patient very adamant and demanding this morning insisting on going home as soon as his daughter comes. Denies any SOB although there is audible wheezing heard. did poorly with PT. brown not complain of any pain. Objective Physical Examination General Exam: Positive: Alert, Cooperative, No Acute Distress ENT Exam: Positive: Atraumatic Neck Exam: Positive: Supple; Negative: JVD, thyromegaly Chest Exam: Positive: Rhonchi, Wheezing Heart Exam: Positive: Rate Normal, Regular Rhythm, Normal S1, Normal S2; Negative: Murmurs, Rubs Abdomen Exam: Positive: Normal bowel sounds, Soft; Negative: Tenderness, Hepatospenomegaly Extremity Exam: Positive: Edema (bilateral trace); Negative: Clubbing, Cyanosis Skin Exam: Positive: Other skin issue (Poor hygiene, dirty nails. Left hip surgical incision with echymosis around it. ) Assessment /Plan Assessment 80 y/o male with a PMH of HTN, dementia, prostate and bladder ca s/p resection, impaired mobility using walker and motorized WC at baseline, extensive smoking history and suspected COPD presented to ED with a cc of hip pain after a mechanical fall at home. Patient found to have left intertrochanteric fracture of femur. He was also found to have COPD exacerbation and Ecoli UTI. Comminuted Left intertrochanteric fracture of femur S/p mechanical fall. uses walker and motorized WC. no metastatic disease seen on MRI s/p Left hip cephalomedullary nail placement, intermediate length on 08/22/20 pain control with tylenol and norco COPD exacerbation resolving continue prednisone, duonebs, budesonide and albuterol prn. Delirium superimposed on dementia probably due to post operative anesthetic effect, pain, steroids, hospitalization with unfamiliar surroundings. was very sedated as was getting serax and ativan with seroquel somnolence resolved after stopping serax. On seroquel only Excessive somnolence/ dysphagia from 08/22/20 CT head from 08/22/20 did not show CVA MRI/MRA brain negative for stroke has brain atrophy and diffuse white matter disease. I think this was most likely due to multiple sedating medications that he was getting for his delirium. Left basilar atelectasis No pneumonia Procal normal. Dysphagia Diet as per ST, pureed, necter thickened may be able to do better when more awake. Acute Urinary retention postoperative resolved continue oxybutinin. E coli UTI ceftriaxone to cefdinir Hypertension cont lisinopril, coreg Etoh use disorder 3-4 beers most days No signs of withdrawal stopped serax as too sedated continue CIWA Nicotine dependence nicotine patch H/o bladder neoplasm(2011), prostate ca (2004) f/u urology and oncology op Dispo: Sub acute rehab. Plan/VTE VTE Prophylaxis Ordered?: Yes VS, I&O, 24H, Fishbone Vital Signs/I&O Vital Signs Date Time Temp Pulse Resp B/P (MAP) Pulse Ox O2 Delivery O2 Flow Rate FiO2 08/25/20 08:01 89 125/55 08/25/20 06:00 97.0 18 94 Nasal Cannula 1.0 I&O- Last 24 Hours up to 6 AM 08/25/20 06:00 Intake Total 450 ml Balance 450 ml Laboratory Data 24H LABS Laboratory Tests 2 08/25/20 05:51: Anion Gap 2L, Glomerular Filtration Rate > 60.0, Calcium Level 8.3L CBC/BMP Laboratory Tests 08/25/20 05:51 Microbiology Microbiology 08/23/20 Blood Culture - Preliminary, Resulted No growth after 24 hours . All specim... 08/23/20 Blood Culture - Preliminary, Resulted No growth after 24 hours . All specim... 08/22/20 Blood Culture - Preliminary, Resulted No Growth after 72 hours. All specime... 08/22/20 Blood Culture - Preliminary, Resulted No Growth after 72 hours. All specime... 08/20/20 Urine Culture - Final, Complete Escherichia Coli DEBBI AVILES MD Aug 25, 2020 12:10
[2020-08-25] MEDS: BUDESONIDE 0.5 MG/2 ML INHALATION SUSPENSION INH SCH ×2 (13:29→19:36)
[2020-08-25 14:00] VITALS: BP 125/55
[2020-08-25] MEDS: QUEtiapine FUMARATE 25 MG TAB PO SCH (17:42)
[2020-08-25 21:00] VITALS: O2SAT 91
[2020-08-25] MEDS: CEFDINIR 300 MG CAP (OMNICEF) PO SCH (21:04)
[2020-08-25 22:00] VITALS: BP 169/71
[2020-08-25] MEDS: RAMELTEON 8 MG TAB (ROZEREM) PO PRN (22:13)
[2020-08-26] MEDS: IPRATROPIUM 0.5MG/ALBUTEROL 2.5MG INH SOL UD 3ML (DUONEB) NEB SCH ×7 (04:00→23:26)
[2020-08-26 06:00] VITALS: BP 148/71
[2020-08-26 06:46] LABS: BLOOD UREA NITROGEN 36 MG/DL (7-18); CALCIUM LEVEL 8.2 MG/DL (8.8-10.2); CARBON DIOXIDE LEVEL 30 MEQ/L (21-32); CHLORIDE LEVEL 107 MEQ/L (98-107); GLOMERULAR FILTRATION RATE > 60.0 (>42); GLUCOSE, FASTING 94 MG/DL (70-100); POTASSIUM SERUM 3.5 MEQ/L (3.5-5.1); SODIUM LEVEL 140 MEQ/L (136-145)
[2020-08-26] MEDS: BUDESONIDE 0.5 MG/2 ML INHALATION SUSPENSION INH SCH ×2 (07:11→19:48)
[2020-08-26] MEDS: SENOKOT S TAB PO SCH ×3 (09:00→21:15)
[2020-08-26] MEDS: lisinopriL 40 MG TAB PO SCH (09:00)
[2020-08-26] MEDS: HEPARIN SOD (PORCINE) 5000UNITS/ML 1ML VIAL/SYRINGE SQ SCH ×2 (09:00→21:16)
[2020-08-26] MEDS: oxyBUTYnin *DITROPAN XL* 5 MG TABCR PO SCH (09:01)
[2020-08-26] MEDS: CEFDINIR 300 MG CAP (OMNICEF) PO SCH ×2 (09:01→21:15)
[2020-08-26] MEDS: MULTIVITAMINS/MINERALS THERAP 1 TAB PO SCH (09:01)
[2020-08-26] MEDS: FOLIC ACID 1 MG TAB PO SCH (09:02)
[2020-08-26] MEDS: predniSONE 10 MG TAB PO SCH (09:02)
[2020-08-26] MEDS: CARVedilol 12.5 MG TAB PO SCH ×2 (09:02→21:15)
[2020-08-26] MEDS: NYSTATIN 100,000 UNITS/GM TOPICAL PWD 15 GM TOP SCH ×2 (09:04→21:00)
[2020-08-26] MEDS: NICOTINE 21MG/24HR 1 EA TRANSDERMAL TD PRN (10:09)
[2020-08-26] MEDS: ACETAMINOPHEN TAB 650MG DOSE (2X325MG) PO PRN ×2 (10:11→21:16)
[2020-08-26] MEDS: NORCO, ANEXSIA 5/325MG TABLET (HYDROcodone/ACETAMINOPHEN) PO PRN (15:19)
[2020-08-26] MEDS: QUEtiapine FUMARATE 25 MG TAB PO SCH (18:16)
[2020-08-26] MEDS: RAMELTEON 8 MG TAB (ROZEREM) PO PRN (21:15)
[2020-08-27] MEDS: IPRATROPIUM 0.5MG/ALBUTEROL 2.5MG INH SOL UD 3ML (DUONEB) NEB SCH ×5 (03:46→20:00)
[2020-08-27 06:00] VITALS: BP 122/56
[2020-08-27] MEDS: BUDESONIDE 0.5 MG/2 ML INHALATION SUSPENSION INH SCH ×2 (07:35→20:00)
[2020-08-27] MEDS: NYSTATIN 100,000 UNITS/GM TOPICAL PWD 15 GM TOP SCH ×2 (09:00→21:00)
[2020-08-27] MEDS: HEPARIN SOD (PORCINE) 5000UNITS/ML 1ML VIAL/SYRINGE SQ SCH ×2 (10:09→22:00)
[2020-08-27] MEDS: NICOTINE 21MG/24HR 1 EA TRANSDERMAL TD PRN (10:10)
[2020-08-27] MEDS: SENOKOT S TAB PO SCH ×2 (10:10→21:59)
[2020-08-27] MEDS: MULTIVITAMINS/MINERALS THERAP 1 TAB PO SCH (10:11)
[2020-08-27] MEDS: CARVedilol 12.5 MG TAB PO SCH ×2 (10:11→21:59)
[2020-08-27] MEDS: CEFDINIR 300 MG CAP (OMNICEF) PO SCH ×2 (10:11→21:59)
[2020-08-27] MEDS: predniSONE 10 MG TAB PO SCH (10:11)
[2020-08-27] MEDS: FOLIC ACID 1 MG TAB PO SCH (10:11)
[2020-08-27] MEDS: lisinopriL 40 MG TAB PO SCH (10:12)
[2020-08-27] MEDS: oxyBUTYnin *DITROPAN XL* 5 MG TABCR PO SCH (10:12)
[2020-08-27] MEDS: NORCO, ANEXSIA 5/325MG TABLET (HYDROcodone/ACETAMINOPHEN) PO PRN ×2 (10:12→21:59)
[2020-08-27] MEDS: QUEtiapine FUMARATE 25 MG TAB PO SCH (18:08)
[2020-08-27] MEDS: RAMELTEON 8 MG TAB (ROZEREM) PO PRN (21:59)
[2020-08-28] MEDS: IPRATROPIUM 0.5MG/ALBUTEROL 2.5MG INH SOL UD 3ML (DUONEB) NEB SCH ×7 (04:00→23:32)
[2020-08-28 06:00] VITALS: BP 129/61
[2020-08-28] MEDS: BUDESONIDE 0.5 MG/2 ML INHALATION SUSPENSION INH SCH ×2 (08:00→20:00)
[2020-08-28] MEDS: CEFDINIR 300 MG CAP (OMNICEF) PO SCH ×2 (08:38→20:38)
[2020-08-28] MEDS: SENOKOT S TAB PO SCH ×2 (08:38→20:38)
[2020-08-28] MEDS: MULTIVITAMINS/MINERALS THERAP 1 TAB PO SCH (08:38)
[2020-08-28] MEDS: HEPARIN SOD (PORCINE) 5000UNITS/ML 1ML VIAL/SYRINGE SQ SCH ×2 (08:38→20:38)
[2020-08-28] MEDS: predniSONE 10 MG TAB PO SCH (08:39)
[2020-08-28] MEDS: oxyBUTYnin *DITROPAN XL* 5 MG TABCR PO SCH (08:39)
[2020-08-28] MEDS: FOLIC ACID 1 MG TAB PO SCH (08:39)
[2020-08-28] MEDS: lisinopriL 40 MG TAB PO SCH (08:40)
[2020-08-28] MEDS: CARVedilol 12.5 MG TAB PO SCH ×2 (08:40→20:40)
[2020-08-28] MEDS: NORCO, ANEXSIA 5/325MG TABLET (HYDROcodone/ACETAMINOPHEN) PO PRN (08:42)
[2020-08-28] MEDS: NYSTATIN 100,000 UNITS/GM TOPICAL PWD 15 GM TOP SCH ×2 (09:57→20:43)
[2020-08-28] MEDS: QUEtiapine FUMARATE 12.5 MG HALF-TAB PO SCH (13:23)
[2020-08-28] MEDS ORDERED: ALPRAZolam 0.25 MG TAB PO ONE (14:00)
[2020-08-28] MEDS: QUEtiapine FUMARATE 25 MG TAB PO SCH (17:45)
[2020-08-28] MEDS: RAMELTEON 8 MG TAB (ROZEREM) PO PRN (20:42)
[2020-08-29 06:00] VITALS: BP 129/62
[2020-08-29] MEDS: IPRATROPIUM 0.5MG/ALBUTEROL 2.5MG INH SOL UD 3ML (DUONEB) NEB SCH ×5 (08:00→23:08)
[2020-08-29] MEDS: BUDESONIDE 0.5 MG/2 ML INHALATION SUSPENSION INH SCH ×3 (08:00→19:36)
[2020-08-29] MEDS: CEFDINIR 300 MG CAP (OMNICEF) PO SCH (08:43)
[2020-08-29] MEDS: MULTIVITAMINS/MINERALS THERAP 1 TAB PO SCH (08:43)
[2020-08-29] MEDS: HEPARIN SOD (PORCINE) 5000UNITS/ML 1ML VIAL/SYRINGE SQ SCH ×2 (08:43→20:07)
[2020-08-29] MEDS: predniSONE 20 MG TAB PO SCH (08:44)
[2020-08-29] MEDS: oxyBUTYnin *DITROPAN XL* 5 MG TABCR PO SCH (08:44)
[2020-08-29] MEDS: SENOKOT S TAB PO SCH ×2 (08:44→21:00)
[2020-08-29] MEDS: QUEtiapine FUMARATE 12.5 MG HALF-TAB PO SCH (08:44)
[2020-08-29] MEDS: FOLIC ACID 1 MG TAB PO SCH (08:46)
[2020-08-29] MEDS: lisinopriL 40 MG TAB PO SCH (08:46)
[2020-08-29] MEDS: CARVedilol 12.5 MG TAB PO SCH ×2 (08:47→20:08)
[2020-08-29] MEDS: NYSTATIN 100,000 UNITS/GM TOPICAL PWD 15 GM TOP SCH ×2 (08:48→20:08)
[2020-08-29] MEDS: QUEtiapine FUMARATE 25 MG TAB PO SCH (18:18)
[2020-08-29] MEDS: RAMELTEON 8 MG TAB (ROZEREM) PO PRN (20:07)
[2020-08-30] MEDS: NORCO, ANEXSIA 5/325MG TABLET (HYDROcodone/ACETAMINOPHEN) PO PRN ×3 (00:52→18:19)
[2020-08-30] MEDS: IPRATROPIUM 0.5MG/ALBUTEROL 2.5MG INH SOL UD 3ML (DUONEB) NEB SCH ×5 (03:15→19:34)
[2020-08-30 06:00] VITALS: BP_SYST 134; BP_SYST 136; BP_DIAS 71; BP_DIAS 77
[2020-08-30] MEDS: BUDESONIDE 0.5 MG/2 ML INHALATION SUSPENSION INH SCH ×2 (07:15→19:33)
[2020-08-30] MEDS: lisinopriL 40 MG TAB PO SCH (09:00)
[2020-08-30] MEDS: NYSTATIN 100,000 UNITS/GM TOPICAL PWD 15 GM TOP SCH ×2 (09:00→20:19)
[2020-08-30] MEDS: SENOKOT S TAB PO SCH ×2 (09:00→20:11)
[2020-08-30] MEDS: MULTIVITAMINS/MINERALS THERAP 1 TAB PO SCH (09:54)
[2020-08-30] MEDS: HEPARIN SOD (PORCINE) 5000UNITS/ML 1ML VIAL/SYRINGE SQ SCH ×2 (09:54→20:18)
[2020-08-30] MEDS: oxyBUTYnin *DITROPAN XL* 5 MG TABCR PO SCH (09:54)
[2020-08-30] MEDS: QUEtiapine FUMARATE 12.5 MG HALF-TAB PO SCH (09:54)
[2020-08-30] MEDS: predniSONE 20 MG TAB PO SCH (09:54)
[2020-08-30] MEDS: FOLIC ACID 1 MG TAB PO SCH (09:54)
[2020-08-30] MEDS: CARVedilol 12.5 MG TAB PO SCH ×2 (11:26→20:19)
[2020-08-30] MEDS ORDERED: QUEtiapine FUMARATE 50MG TAB PO SCH (18:00)
[2020-08-30] MEDS: RAMELTEON 8 MG TAB (ROZEREM) PO PRN (20:18)
[2020-08-31] MEDS: IPRATROPIUM 0.5MG/ALBUTEROL 2.5MG INH SOL UD 3ML (DUONEB) NEB SCH ×4 (03:41→11:14)
[2020-08-31] MEDS: NORCO, ANEXSIA 5/325MG TABLET (HYDROcodone/ACETAMINOPHEN) PO PRN ×2 (03:51→13:44)
[2020-08-31 06:00] VITALS: BP 130/73
[2020-08-31] MEDS: BUDESONIDE 0.5 MG/2 ML INHALATION SUSPENSION INH SCH (07:10)
[2020-08-31] MEDS: SENOKOT S TAB PO SCH (08:29)
[2020-08-31] MEDS: QUEtiapine FUMARATE 12.5 MG HALF-TAB PO SCH (08:30)
[2020-08-31] MEDS: predniSONE 20 MG TAB PO SCH (08:30)
[2020-08-31] MEDS: oxyBUTYnin *DITROPAN XL* 5 MG TABCR PO SCH (08:30)
[2020-08-31] MEDS: MULTIVITAMINS/MINERALS THERAP 1 TAB PO SCH (08:30)
[2020-08-31] MEDS: FOLIC ACID 1 MG TAB PO SCH (08:30)
[2020-08-31] MEDS: lisinopriL 40 MG TAB PO SCH (08:30)
[2020-08-31 08:31] VITALS: BP 130/73
[2020-08-31] MEDS: NYSTATIN 100,000 UNITS/GM TOPICAL PWD 15 GM TOP SCH (08:31)
[2020-08-31] MEDS: CARVedilol 12.5 MG TAB PO SCH (08:31)
[2020-08-31] MEDS: HEPARIN SOD (PORCINE) 5000UNITS/ML 1ML VIAL/SYRINGE SQ SCH (08:31)
[2020-08-31] MEDS: NICOTINE 21MG/24HR 1 EA TRANSDERMAL TD PRN (08:34)
[2020-08-31] MEDS ORDERED: RAME8TAB2 PO (12:38)
[2020-08-31] MEDS ORDERED: VENTAER INH (12:45)
[2020-08-31] MEDS ORDERED: QUET50TA3 PO (12:45)
[2020-08-31] MEDS ORDERED: HYDR-3715 PO (12:45)
[2020-08-31] MEDS ORDERED: FOLI1TAB11 PO (12:45)
[2020-08-31] MEDS ORDERED: SENN-52 PO (12:45)
[2020-08-31] MEDS ORDERED: ADVA115A INH (12:45)
[2020-08-31] MEDS ORDERED: QUET25TA3 PO (12:45)
[2020-08-31] MEDS ORDERED: LISI40TA4 PO (12:45)
[2020-08-31] MEDS ORDERED: PRED5PAK2 PO (12:49)
[2020-08-31] MEDS ORDERED: ECOT81TA5 PO (13:39)
--- NOTE | 2020-08-31 19:34 | DS.PDOC ---
Discharge Summary General Date of Admission Aug 20, 2020 at 05:16 Date of Discharge 08/31/20 Discharge Summary PROCEDURES PERFORMED DURING STAY: [None]. ADMITTING DIAGNOSES: Comminuted Left intertrochanteric fracture of femur COPD exacerbation Delirium superimposed on dementia Excessive somnolence/ dysphagia from 08/22/20 Left basilar atelectasis Dysphagia Acute Urinary retention E coli UTI Hypertension Etoh use disorder Nicotine dependence H/o bladder neoplasm(2011), prostate ca (2004) DISCHARGE DIAGNOSES: Comminuted Left intertrochanteric fracture of femur COPD exacerbation Delirium superimposed on dementia Excessive somnolence/ dysphagia from 08/22/20 Left basilar atelectasis Dysphagia Acute Urinary retention E coli UTI Hypertension Etoh use disorder Nicotine dependence H/o bladder neoplasm(2011), prostate ca (2004) COMPLICATIONS/CHIEF COMPLAINT: Intertrichanteric Fracture Of Left Femur. HISTORY OF PRESENT ILLNESS: 80 y/o male with a PMH of HTN, dementia, prostate and bladder ca s/p resection, impaired mobility using walker and motorized WC at baseline, extensive smoking history and suspected COPD presented to ED with a cc of hip pain after a mechanical fall at home. Patient found to have left intertrochanteric fracture of femur. He was also found to have COPD exacerbation and Ecoli UTI. HOSPITAL COURSE: During the hospital stay the following issues addressed Comminuted Left intertrochanteric fracture of femur S/p mechanical fall. uses walker and motorized WC. no metastatic disease seen on MRI s/p Left hip cephalomedullary nail placement, intermediate length on 08/22/20 pain control with tylenol and norco COPD exacerbation resolving continue prednisone, duonebs, budesonide and albuterol prn. Delirium superimposed on dementia probably due to post operative anesthetic effect, pain, steroids, hospitalization with unfamiliar surroundings. was very sedated as was getting serax and ativan with seroquel somnolence resolved after stopping serax. On seroquel only Excessive somnolence/ dysphagia from 08/22/20 CT head from 08/22/20 did not show CVA MRI/MRA brain negative for stroke has brain atrophy and diffuse white matter disease. I think this was most likely due to multiple sedating medications that he was getting for his delirium. Left basilar atelectasis No pneumonia Procal normal. Dysphagia Diet as per ST, pureed, necter thickened may be able to do better when more awake. Acute Urinary retention postoperative resolved continue oxybutinin. E coli UTI ceftriaxone to cefdinir Hypertension cont lisinopril, coreg Etoh use disorder 3-4 beers most days No signs of withdrawal stopped serax as too sedated continue CIWA Nicotine dependence nicotine patch H/o bladder neoplasm(2011), prostate ca (2004) f/u urology and oncology op DISCHARGE MEDICATIONS: Please see below. ALLERGIES: Please see below. PHYSICAL EXAMINATION ON DISCHARGE: VITAL SIGNS: Please see below. General Exam: Positive: Alert, Cooperative, No Acute Distress ENT Exam: Positive: Atraumatic Neck Exam: Positive: Supple; Negative: JVD, thyromegaly Chest Exam: Positive: Rhonchi, Wheezing Heart Exam: Positive: Rate Normal, Regular Rhythm, Normal S1, Normal S2; Negative: Murmurs, Rubs Abdomen Exam: Positive: Normal bowel sounds, Soft; Negative: Tenderness, Hepatosplenomegaly Extremity Exam: Positive: Edema (bilateral trace); Negative: Clubbing, Cyanosis Skin Exam: Positive: Other skin issue (Poor hygiene, dirty nails. Left hip surgical incision with echymosis around it. ) LABORATORY DATA: Please see below. IMAGING: [facility] NAME: NIDIA HAYWOOD V DATE OF : 1940 BUSINESS NUMBER: [id number] AGE: 80 SEX: M REPORT #: [id number] ROOM: [facility] TECHNOLOGIST: [facility] DOCTOR: SVETA ARAUJO MD Ordered for Date&Time: 08/24/20 1838 cc: [~ rep ct ivnm] Service Date&Time: 08/24/202014 This report is in Signed status. Interpretation performed by [facility]. Thank you for having your radiology procedures performed at [facility] RADIOLOGY REPORT Date&Time printed: [~ rep prt dt last] [~ rep prt tm last] Page 2 of 2 [place] [id number] RADIOLOGY REPORT This report is in Signed status. Interpretation performed by [facility]. Thank you for having your radiology procedures performed at [facility] RADIOLOGY REPORT Date&Time printed: [~ rep prt dt last] [~ rep prt tm last] Page 1 of 2 NAME: NIDIA HAYWOOD V DATE OF : 1940 BUSINESS NUMBER: [id number] AGE: 80 SEX: M REPORT #: [id number] ROOM: [facility] TECHNOLOGIST: [facility] DOCTOR: SVETA ARAUJO MD Ordered for Date&Time: 08/24/201837 cc: [~ rep ct ivnm] Service Date&Time: 08/24/202014 EXAMINATION REQUESTED: MRA BRAIN W/O CONTRAST REASON FOR PATIENT VISIT: INTERTRICHANTERIC FRACTURE OF LEFT FEMUR REASON FOR EXAMINATION: r/o stenosis PROCEDURE INFORMATION: Exam: MRA Head Without Contrast; Arteriography Exam date and time: 08/24/2020 8:15 PM Age: 80 years old Clinical indication: Cognitive deficit; Altered mental status; Additional info: R/O stenosis TECHNIQUE: Imaging protocol: Magnetic resonance angiography head without contrast. Exam focused on the arteries. COMPARISON: CT Head without contrast 08/22/2020 8:53 AM FINDINGS: ANTERIOR CIRCULATION: Right internal carotid artery: Intracranial segment is patent with no significant stenosis. No aneurysm. Right middle cerebral artery: No occlusion or significant stenosis. No aneurysm. Right anterior cerebral artery: The right anterior cerebral artery A1 segment is absent. Distal right anterior cerebral artery is supplied through the A-comm and is patent. Left internal carotid artery: Intracranial segment is patent with no significant stenosis. No aneurysm. Left middle cerebral artery: No occlusion or significant stenosis. No aneurysm. Left anterior cerebral artery: No occlusion or significant stenosis. No aneurysm. POSTERIOR CIRCULATION: Right vertebral artery: No occlusion or significant stenosis. No aneurysm. Left vertebral artery: No occlusion or significant stenosis. No aneurysm. Basilar artery: No occlusion or significant stenosis. No aneurysm. Right posterior cerebral artery: No occlusion or significant stenosis. No aneurysm. Left posterior cerebral artery: No occlusion or significant stenosis. No aneurysm. IMPRESSION: No significant stenosis, aneurysm, or large vessel occlusion. Electronically signed by: Isaías Will On 08/24/2020 21:52:59 PM DD: ISAÍAS WILL MD 08/24/202014 DT: LESLI 08/24/202151 DS: JOSE CARLOS 08/24/202151 [~ rep ct labl] PROGNOSIS: fair ACTIVITY: [As tolerated]. DIET: Cardiac DISPOSITION: [facility]. ITEMS TO FOLLOWUP ON ON OUTPATIENT: Follow-up with PCP DISCHARGE CONDITION: [Stable]. TIME SPENT ON DISCHARGE: 40minutes. Vital Signs/I&Os Vital Signs Date Time Temp Pulse Resp B/P (MAP) Pulse Ox O2 Delivery O2 Flow Rate FiO2 08/31/20 14:14 16 08/31/20 08:31 83 130/73 08/31/20 06:00 98.0 96 08/31/20 04:21 Room Air 08/25/20 14:00 2.0 I&O- Last 24 Hours up to 6 AM 08/31/20 05:59 Intake Total 780 ml Output Total 325 ml Balance 455 ml Microbiology Microbiology 08/23/20 Blood Culture - Final, Complete NO GROWTH AFTER 5 DAYS 08/23/20 Blood Culture - Final, Complete NO GROWTH AFTER 5 DAYS 08/22/20 Blood Culture - Final, Complete NO GROWTH AFTER 5 DAYS 08/22/20 Blood Culture - Final, Complete NO GROWTH AFTER 5 DAYS Discharge Medications Scheduled Amlodipine Besylate (Amlodipine Besylate) 10 Mg Tablet, 10 MG PO DAILY, (Reported) Aspirin (Ecotrin) 81 Mg Tablet.dr, 81 MG PO DAILY for pain Carvedilol (Carvedilol) 25 Mg Tablet, 25 MG PO BID, (Reported) Ergocalciferol (Vitamin D2) (Vitamin D2) 50,000 Units Cap, 50,000 UNITS PO QWEEK, (Reported) SUNDAY Fluticasone Propion/Salmeterol (Advair Hfa 115-21 Mcg Inhaler) 12 Gm Hfa.aer.ad, 2 PUFF INH BID Folic Acid (Folic Acid) 1 Mg Tablet, 1 MG PO DAILY Hydrochlorothiazide (Hydrochlorothiazide) 25 Mg Tablet, 25 MG PO DAILY, (Reported) Lisinopril (Lisinopril) 40 Mg Tablet, 40 MG PO DAILY, (Reported) Lisinopril (Lisinopril) 40 Mg Tablet, 20 MG PO DAILY Oxybutynin Chloride (Oxybutynin Chloride ER) 5 Mg Tab.er.24, 5 MG PO DAILY, (Reported) Prednisone (Prednisone) 5 Mg Tab.ds.pk, 0 PO ASDIRECTED 6 day dose pack taper Quetiapine Fumarate (Quetiapine Fumarate) 25 Mg Tablet, 12.5 MG PO QAM Quetiapine Fumarate (Quetiapine Fumarate) 50 Mg Tablet, 50 MG PO QHS@1800 Scheduled PRN Albuterol Sulfate (Ventolin Hfa) 18 Gm Hfa.aer.ad, 2 PUFF INH Q4-6HP PRN for wheezing Hydrocodone/Acetaminophen (Hydrocodone-Acetamin 5-325 mg) 1 Each Tablet, 2 TAB PO Q6HP PRN for SEVERE PAIN (PS 8-10) Hydroxyzine HCl (Hydroxyzine HCl) 25 Mg Tablet, 25 MG PO QHS PRN for SLEEP, (Reported) Loperamide HCl (Loperamide) 2 Mg Capsule, 2 MG PO ASDIRECTED PRN for DIARRHEA, (Reported) Ramelteon (Ramelteon) 8 Mg Tablet, 8 MG PO QHS PRN for INSOMNIA Sennosides/Docusate Sodium (Senna Plus Tablet) 1 Each Tablet, 2 TAB PO BID PRN for constipation Allergies Coded Allergies: No Known Allergies (Unverified , 11/04/18) ADALBERTO DIAZ DO Aug 31, 2020 19:34
== END 2020-08-31 14:13 | DRG 481 ==
LOC: M ED 03:28 → M ED INP 05:16 → ENRESERV 09:23 → M MSPAV 10:48
PROVIDERS: ADMIT Internal Medicine; ATTEND Internal Medicine
PROC: 0QS706Z Reposition Left Upper Femur with Intramedullary Internal Fixation Device, Open Approach (ICD-10-PCS; principal; 2020-08-22 08:30)
DX: M84.452A Pathological fracture, left femur, initial encounter for fracture (principal); J44.1 Chronic obstructive pulmonary disease with (acute) exacerbation; E87.1 Hypo-osmolality and hyponatremia; N39.0 Urinary tract infection, site not specified; J98.11 Atelectasis; I10 Essential (primary) hypertension; F17.290 Nicotine dependence, other tobacco product, uncomplicated; F10.10 Alcohol abuse, uncomplicated; G47.00 Insomnia, unspecified; Z20.822 Contact with and (suspected) exposure to COVID-19; Z79.899 Other long term (current) drug therapy; Z85.51 Personal history of malignant neoplasm of bladder; Z85.46 Personal history of malignant neoplasm of prostate; R91.8 Other nonspecific abnormal finding of lung field; R60.0 Localized edema; R33.9 Retention of urine, unspecified; F03.90 Unspecified dementia, unspecified severity, without behavioral disturbance, psychotic disturbance, mood disturbance, and anxiety; B96.20 Unspecified Escherichia coli [E. coli] as the cause of diseases classified elsewhere; R26.89 Other abnormalities of gait and mobility; R13.10 Dysphagia, unspecified; W01.0XXA Fall on same level from slipping, tripping and stumbling without subsequent striking against object, initial encounter; Y92.009 Unspecified place in unspecified non-institutional (private) residence as the place of occurrence of the external cause

== ENCOUNTER → 2020-09-01 | Outpatient (REF) ==
[~2020-09-01] MED LIST changes: +ADVA115A INH; +AMLO1TAB25 PO; +CARV25TA PO; +ECOT81TA5 PO; +ERGO500029 PO; +FOLI1TAB11 PO; +HYDR-3363 PO; +HYDR-3490 PO; +HYDR-3715 PO; +LISI40TA4 PO; +LOPE1CAP5 PO; +OXYB-54 PO; +PRED5PAK2 PO; +QUET25TA3 PO; +QUET50TA3 PO; +RAME8TAB2 PO; +SENN-52 PO; +VENTAER INH
[2020-09-01 09:54] LABS: HEMATOCRIT 30.6 % (42.0-52.0); HEMOGLOBIN 10.3 g/dl (13.5-17.5); MEAN CORPUSCULAR HGB CONC 33.7 g/dl (32.0-36.5); MEAN CORPUSCULAR VOLUME 98.1 fl (80.0-96.0); PLATELET COUNT, AUTOMATED 285 10^3/uL (150-450); RED BLOOD COUNT 3.12 10^6/uL (4.30-6.10); WHITE BLOOD COUNT 10.7 10^3/uL (4.0-10.0)
[2020-09-01 10:23] LABS: BLOOD UREA NITROGEN 16 MG/DL (7-18); CALCIUM LEVEL 8.4 MG/DL (8.8-10.2); CARBON DIOXIDE LEVEL 26 MEQ/L (21-32); CHLORIDE LEVEL 106 MEQ/L (98-107); GLOMERULAR FILTRATION RATE > 60.0 (>42); GLUCOSE, FASTING 111 MG/DL (70-100); POTASSIUM SERUM 3.9 MEQ/L (3.5-5.1); SODIUM LEVEL 138 MEQ/L (136-145)
== END ==
LOC: SKLAB3 06:59
DX: D64.9 Anemia, unspecified (principal)

== ENCOUNTER → 2020-09-07 | Outpatient (CLI) | payer MEDICARE, OTHER ==
--- NOTE | 2020-09-07 12:51 | REP ---
INDICATION: LT THIGH PAIN POST SURGERY R/O ABSCESS COMPARISON: None TECHNIQUE: Real time leon scale and color B-mode ultrasound examination using linear high-frequency transducer. FINDINGS: Directed ultrasound examination the posterior left hip at the site of palpable mass demonstrates a somewhat ill-defined complex collection measuring roughly 4.7 x 2.9 x 4.0 cm which may represent postsurgical seroma/hematoma. IMPRESSION: 1. Complex fluid collections suggesting postsurgical seroma/hematoma. <Electronically signed by Matt Lo > 09/07/20 [id number]
--- NOTE | 2020-09-07 12:52 | REP ---
INDICATION: LT THIGH PAIN, POST SURGERY, R/O THROMBOSIS/ABSCES COMPARISON: None. TECHNIQUE: Ward scale and color Doppler evaluation using linear high frequency transducer. FINDINGS: Ultrasound examination of the left lower extremity deep venous structures from the common femoral vein through the calf/ankle to include the peroneal, and tibial veins demonstrates normal compressibility flow and wave patterns in response to respiration and augmentation. Evaluation of the calf veins was somewhat limited due to overlying edema. There is no evidence for deep venous thrombosis. Contralateral CFV is patent and normal. IMPRESSION: No evidence for deep venous thrombosis. <Electronically signed by Matt Lo > 09/07/20 1377
== END ==
LOC: M RAD 11:59
PROVIDERS: ATTEND Nurse Practitioner Family
DX: M79.605 Pain in left leg (principal)

== ENCOUNTER → 2020-09-07 | Outpatient (REF) ==
[2020-09-07 07:23] LABS: HEMOGLOBIN 10.7 g/dl (13.5-17.5); MEAN CORPUSCULAR HEMOGLOBIN 33.3 pg (27.0-33.0); MEAN CORPUSCULAR HGB CONC 33.4 g/dl (32.0-36.5); MEAN CORPUSCULAR VOLUME 99.7 fl (80.0-96.0); PLATELET COUNT, AUTOMATED 300 10^3/uL (150-450); RED BLOOD COUNT 3.21 10^6/uL (4.30-6.10); WHITE BLOOD COUNT 7.6 10^3/uL (4.0-10.0)
[2020-09-07 07:51] LABS: BLOOD UREA NITROGEN 21 MG/DL (7-18); CALCIUM LEVEL 8.4 MG/DL (8.8-10.2); CARBON DIOXIDE LEVEL 27 MEQ/L (21-32); CHLORIDE LEVEL 102 MEQ/L (98-107); CREATININE FOR GFR 0.55 MG/DL (0.70-1.30); GLOMERULAR FILTRATION RATE > 60.0 (>42); GLUCOSE, FASTING 88 MG/DL (70-100); POTASSIUM SERUM 4.1 MEQ/L (3.5-5.1); SODIUM LEVEL 134 MEQ/L (136-145)
[2020-09-07 10:12] LABS: C REACTIVE PROTEIN QUANTITATIV 2.22 MG/DL (0.00-0.30)
[2020-09-07 10:28] LABS: ERYTHROCYTE SEDIMENTATION RATE 50 mm/hr (0-20)
== END ==
LOC: SKLAB3 07:14
DX: D64.9 Anemia, unspecified (principal); J44.9 Chronic obstructive pulmonary disease, unspecified

== ENCOUNTER → 2020-09-08 | Outpatient (REF) ==
--- NOTE | 2020-09-08 12:46 | REP ---
INDICATION: R/O SURGICAL SITE ISSUES. COMPARISON: 08/20/2020 a pre operative exam TECHNIQUE: AP and frog-lateral views FINDINGS: Previously described fracture has been openly reduced and internally fixed with a femoral neck lag screw and femoral diaphysis intramedullary aleta. Alignment is significantly improved, however, the portion of the trochanter displaced on the prior exam remains displaced today. The lag screw tip does not breach the joint space. IMPRESSION: Status post ORIF as described above. <Electronically signed by Prasanth Aranda > 09/08/20 [id number]
--- NOTE | 2020-09-08 12:47 | REP ---
INDICATION: R/O SURGICAL SITE ISSUES. COMPARISON: 08/20/2020 TECHNIQUE: A single AP view of the pelvis was performed. FINDINGS: Status post left hip ORIF. Please see the dedicated left hip report. There is no change in appearance of the right hip. There is asymmetric joint space narrowing status quo. The bones are demineralized. There is no evidence of an acute fracture. Once again, radiodensities are seen in the prostate gland from previous brachytherapy. IMPRESSION: No acute abnormality. Findings as described above. <Electronically signed by Prasanth Aranda > 09/08/20 [id number]
== END ==
LOC: SKLAB3 11:45
DX: S72.002D Fracture of unspecified part of neck of left femur, subsequent encounter for closed fracture with routine healing (principal)

== ENCOUNTER → 2020-09-14 | Outpatient (REF) ==
[2020-09-14 11:08] LABS: HEMOGLOBIN 10.5 g/dl (13.5-17.5); MEAN CORPUSCULAR HEMOGLOBIN 32.9 pg (27.0-33.0); MEAN CORPUSCULAR HGB CONC 33.9 g/dl (32.0-36.5); MEAN CORPUSCULAR VOLUME 97.2 fl (80.0-96.0); PLATELET COUNT, AUTOMATED 250 10^3/uL (150-450); RED BLOOD COUNT 3.19 10^6/uL (4.30-6.10); WHITE BLOOD COUNT 5.2 10^3/uL (4.0-10.0)
[2020-09-14 11:41] LABS: BLOOD UREA NITROGEN 16 MG/DL (7-18); CALCIUM LEVEL 8.7 MG/DL (8.8-10.2); CARBON DIOXIDE LEVEL 27 MEQ/L (21-32); CHLORIDE LEVEL 101 MEQ/L (98-107); CREATININE FOR GFR 0.52 MG/DL (0.70-1.30); GLOMERULAR FILTRATION RATE > 60.0 (>42); GLUCOSE, FASTING 83 MG/DL (70-100); POTASSIUM SERUM 3.4 MEQ/L (3.5-5.1); SODIUM LEVEL 134 MEQ/L (136-145)
== END ==
LOC: SKLAB3 07:00
DX: D64.9 Anemia, unspecified (principal)

== ENCOUNTER → 2020-09-16 | Outpatient (REF) | payer MEDICARE, OTHER | LOC: SKLAB3 07:00 | DX: R35.0 Frequency of micturition (principal) ==

== ENCOUNTER → 2020-09-21 | Outpatient (REF) | payer MEDICARE, OTHER ==
[2020-09-21 09:52] LABS: HEMATOCRIT 32.6 % (42.0-52.0); MEAN CORPUSCULAR HEMOGLOBIN 32.4 pg (27.0-33.0); MEAN CORPUSCULAR HGB CONC 33.7 g/dl (32.0-36.5); MEAN CORPUSCULAR VOLUME 95.9 fl (80.0-96.0); PLATELET COUNT, AUTOMATED 305 10^3/uL (150-450); WHITE BLOOD COUNT 5.7 10^3/uL (4.0-10.0)
[2020-09-21 10:17] LABS: BLOOD UREA NITROGEN 15 MG/DL (7-18); CALCIUM LEVEL 8.9 MG/DL (8.8-10.2); CARBON DIOXIDE LEVEL 27 MEQ/L (21-32); CHLORIDE LEVEL 101 MEQ/L (98-107); CREATININE FOR GFR 0.75 MG/DL (0.70-1.30); GLOMERULAR FILTRATION RATE > 60.0 (>42); GLUCOSE, FASTING 113 MG/DL (70-100); POTASSIUM SERUM 4.1 MEQ/L (3.5-5.1); SODIUM LEVEL 137 MEQ/L (136-145)
== END ==
LOC: SKLAB3 07:00
DX: D64.9 Anemia, unspecified (principal); I50.9 Heart failure, unspecified

== ENCOUNTER 2020-11-25 08:44 | Emergency (ER) | payer MEDICARE, OTHER ==
[~2020-11-25] VITALS: Ht 177.8 cm; Wt 75.0 kg
[~2020-11-25 08:44] MED LIST changes: +QUET1TAB17 PO; -QUET25TA3 PO; -QUET50TA3 PO; +QUET50TA4 PO
[2020-11-25 12:51] VITALS: BP 115/82
== END 2020-11-25 12:53 | disposition home or self-care (01) ==
LOC: EDBD 08:44 → M ED 08:44
DX: T83.091A Other mechanical complication of indwelling urethral catheter, initial encounter (principal); I11.0 Hypertensive heart disease with heart failure; I50.9 Heart failure, unspecified; J44.9 Chronic obstructive pulmonary disease, unspecified; Z85.51 Personal history of malignant neoplasm of bladder; Z85.46 Personal history of malignant neoplasm of prostate; F17.200 Nicotine dependence, unspecified, uncomplicated

== ENCOUNTER → 2020-12-02 | Outpatient (CLI) | payer MEDICARE, OTHER ==
--- NOTE | 2020-12-02 16:24 | REP ---
INDICATION: EPIDIDYMITIS. COMPARISON: None. TECHNIQUE: Real-time sonographic evaluation of scrotum and contents performed. FINDINGS: The testicles are normal in size and echotexture, right testicle measuring 3.2 x 3.5 x 3.4 cm and left testicle 3.9 x 2.5 x 2.6 cm. There is no testicular mass. There is no testicular torsion, blood flow is seen in each testicle with duplex Doppler evaluation. There is hyperemia of the right testicle and head of epididymis suggesting orchitis and epididymitis. There is a moderate complex right hydrocele, with complex fluid containing multiple septations. Scrotal wall appears somewhat thickened. IMPRESSION: Findings compatible with right-sided epididymitis and orchitis with moderate complex septated right hydrocele. <Electronically signed by Chad Ward > 12/02/20 [id number]
== END ==
LOC: M RAD 15:34
PROVIDERS: ATTEND Urology
DX: N45.1 Epididymitis (principal); N43.3 Hydrocele, unspecified
CPT/HCPCS: 76870; 93976; G0463

== ENCOUNTER → 2021-02-18 | Outpatient (REF) | LOC: M LABSMTC 12:28 | PROVIDERS: ATTEND Pediatrics | DX: Z11.52 Encounter for screening for COVID-19 (principal); Z20.822 Contact with and (suspected) exposure to COVID-19 ==

== ENCOUNTER 2021-09-10 14:50 | Emergency (ER) | payer OTHER, MEDICARE ==
[~2021-09-10] VITALS: Ht 180.3 cm; Wt 77.3 kg
[2021-09-10 16:27] LABS: VENOUS HCO3 27.1 MEQ/L (23.0-27.0); VENOUS O2 SATURATION 91.9 % (60.0-80.0); VENOUS PARTIAL PRESSURE CO2 43.8 mmHg (38.0-50.0); VENOUS PARTIAL PRESSURE O2 62.5 mmHg (30.0-50.0); VENOUS PH 7.409 UNITS (7.330-7.430); VENOUS STANDARD HCO3 26.1 MEQ/L; VENOUS TOTAL CO2 28.4 MEQ/L (24.0-28.0)
[2021-09-10 16:30] VITALS: BP 172/89
[2021-09-10 16:38] LABS: BASO # 0.1 10^3/uL (0.0-0.2); BASO % 0.5 % (0.0-1.0); EOS % 0.3 % (0.0-3.0); HEMATOCRIT 42.1 % (42.0-52.0); LYMPH # 0.6 10^3/uL (1.5-5.0); LYMPH % 6.7 % (24.0-44.0); MEAN CORPUSCULAR HEMOGLOBIN 32.6 pg (27.0-33.0); MEAN CORPUSCULAR HGB CONC 35.6 g/dl (32.0-36.5); MEAN CORPUSCULAR VOLUME 91.5 fl (80.0-96.0); MONO # 0.6 10^3/uL (0.0-0.8); MONO % 6.5 % (2.0-8.0); NEUTROPHILS # 8.1 10^3/uL (1.5-8.5); NEUTROPHILS % 85.7 % (36.0-66.0); PLATELET COUNT, AUTOMATED 295 10^3/uL (150-450); WHITE BLOOD COUNT 9.5 10^3/uL (4.0-10.0)
[2021-09-10 17:02] LABS: OSMOLALITY SERUM 272 MOSM/KG (280-301)
[2021-09-10 17:13] LABS: ALBUMIN 3.7 GM/DL (3.2-5.2); ALT/SGPT 22 U/L (12-78); BILIRUBIN,DIRECT 0.4 MG/DL (0.0-0.2); BILIRUBIN,TOTAL 1.1 MG/DL (0.2-1.0); BLOOD UREA NITROGEN 19 MG/DL (7-18); CALCIUM LEVEL 9.6 MG/DL (8.8-10.2); CARBON DIOXIDE LEVEL 26 MEQ/L (21-32); CHLORIDE LEVEL 97 MEQ/L (98-107); CREATININE FOR GFR 0.89 MG/DL (0.70-1.30); ETHYL ALCOHOL (ETHANOL) < 0.003 % (0.000-0.010); GLOMERULAR FILTRATION RATE > 60.0 (>35); GLUCOSE, FASTING 119 MG/DL (70-100); POTASSIUM SERUM 4.4 MEQ/L (3.5-5.1); SODIUM LEVEL 132 MEQ/L (136-145); THYROID STIMULATING HORMONE 0.814 uIU/ML (0.358-3.740); TOTAL PROTEIN 6.8 GM/DL (6.4-8.2)
== END 2021-09-10 17:45 | disposition left against medical advice (07) ==
LOC: M ED 14:50
DX: S80.02XA Contusion of left knee, initial encounter (principal); V49.40XA Driver injured in collision with unspecified motor vehicles in traffic accident, initial encounter; R94.31 Abnormal electrocardiogram [ECG] [EKG]; Y92.410 Unspecified street and highway as the place of occurrence of the external cause; I10 Essential (primary) hypertension; Y93.9 Activity, unspecified; Y99.9 Unspecified external cause status; Z79.51 Long term (current) use of inhaled steroids; Z79.811 Long term (current) use of aromatase inhibitors; Z53.21 Procedure and treatment not carried out due to patient leaving prior to being seen by health care provider

== ENCOUNTER 2021-09-14 22:56 | Inpatient (IN) | payer MEDICARE, OTHER ==
[~2021-09-14] VITALS: Ht 180.3 cm; Wt 80.0 kg
[2021-09-15 00:27] LABS: BASO % 0.4 % (0.0-1.0); HEMATOCRIT 39.6 % (42.0-52.0); HEMOGLOBIN 13.9 g/dl (13.5-17.5); LYMPH # 0.4 10^3/uL (1.5-5.0); LYMPH % 5.7 % (24.0-44.0); MEAN CORPUSCULAR HEMOGLOBIN 32.7 pg (27.0-33.0); MEAN CORPUSCULAR HGB CONC 35.1 g/dl (32.0-36.5); MEAN CORPUSCULAR VOLUME 93.2 fl (80.0-96.0); MONO # 0.6 10^3/uL (0.0-0.8); MONO % 7.9 % (2.0-8.0); NEUTROPHILS # 6.4 10^3/uL (1.5-8.5); NEUTROPHILS % 84.8 % (36.0-66.0); PLATELET COUNT, AUTOMATED 214 10^3/uL (150-450); RED BLOOD COUNT 4.25 10^6/uL (4.30-6.10); WHITE BLOOD COUNT 7.5 10^3/uL (4.0-10.0)
[2021-09-15 00:56] LABS: BLOOD UREA NITROGEN 16 MG/DL (7-18); CALCIUM LEVEL 8.9 MG/DL (8.8-10.2); CARBON DIOXIDE LEVEL 29 MEQ/L (21-32); CHLORIDE LEVEL 97 MEQ/L (98-107); CREATININE FOR GFR 0.72 MG/DL (0.70-1.30); ETHYL ALCOHOL (ETHANOL) 0.004 % (0.000-0.010); FREE T4 1.51 NG/DL (0.76-1.46); GLOMERULAR FILTRATION RATE > 60.0 (>35); GLUCOSE, FASTING 119 MG/DL (70-100); MAGNESIUM LEVEL 1.8 MG/DL (1.8-2.4); NT-PRO BNP 3086 PG/ML (<450); POTASSIUM SERUM 3.9 MEQ/L (3.5-5.1); SODIUM LEVEL 131 MEQ/L (136-145)
[2021-09-15] MEDS ORDERED: FUROSEMIDE 100MG/10ML VIAL (J1940) IV ONE (01:55)
[2021-09-15] MEDS ORDERED: FOSFOMYCIN TROMETHAMINE 3 GM POWDER PACKET (MONUROL) PO STA (02:52)
[2021-09-15 02:54] LABS: AMPHETAMINES LEVEL URINE NEGATIVE (NEGATIVE); BARBITURATES URINE NEGATIVE (NEGATIVE); BENZODIAZEPINES URINE NEGATIVE (NEGATIVE); CANNABINOIDS URINE NEGATIVE (NEGATIVE); COCAINE METABOLITE URINE NEGATIVE (NEGATIVE); METHADONE URINE NEGATIVE (NEGATIVE); OPIATES URINE NEGATIVE (NEGATIVE); PHENCYCLIDINE URINE NEGATIVE (NEGATIVE)
[2021-09-15 03:21] LABS: APPEARANCE, URINE CLOUDY (CLEAR); BACTERIA, URINE AUTO 1+ (NEGATIVE); BILIRUBIN, URINE AUTO NEGATIVE (NEGATIVE); BLOOD, URINE BLOOD 2+ (NEGATIVE); CALCIUM OXALATE CRYSTALS SMALL; COLOR, URINE AMBER (YELLOW); GLUCOSE, URINE (UA) AUTO NEGATIVE (NEGATIVE); KETONE, URINE AUTO NEGATIVE (NEGATIVE); LEUKOCYTE ESTERASE, URINE AUTO 3+ (NEGATIVE); MUCUS, URINE SMALL (NEGATIVE); NITRITE, URINE AUTO NEGATIVE (NEGATIVE); PROTEIN, URINE AUTO 1+ mg/dL (NEGATIVE); RBC, URINE AUTO 9 /HPF (0-3); SQUAMOUS EPITHELIAL CELL UR AU 1 /HPF (0-6); WBC, URINE AUTO 98 /HPF (0-3)
[2021-09-15] MEDS: IPRATROPIUM 0.5MG/ALBUTEROL 2.5MG INH SOL UD 3ML (DUONEB) INH SCH ×6 (04:22→23:26)
[2021-09-15] MEDS ORDERED: SPIR12.9 INH (05:54)
[2021-09-15] MEDS ORDERED: AMOX875T2 PO (05:54)
[2021-09-15] MEDS ORDERED: ASPI-161 PO (05:54)
[2021-09-15] MEDS ORDERED: SENN-23 PO (05:54)
[2021-09-15] MEDS ORDERED: OYST1TAB PO (05:54)
[2021-09-15] MEDS ORDERED: DIPH12.529 PO (05:54)
[2021-09-15] MEDS ORDERED: ALBU8.5H INH (05:54)
[2021-09-15] MEDS ORDERED: HOME MED LIST COMPLETE! XX SCH (05:55)
[2021-09-15] MEDS ORDERED: LORazepam 2 MG/ML VIAL IV PRN (07:35)
[2021-09-15 07:46] LABS: BLOOD UREA NITROGEN 16 MG/DL (7-18); CALCIUM LEVEL 8.6 MG/DL (8.8-10.2); CARBON DIOXIDE LEVEL 29 MEQ/L (21-32); CHLORIDE LEVEL 99 MEQ/L (98-107); CREATININE FOR GFR 0.74 MG/DL (0.70-1.30); GLOMERULAR FILTRATION RATE > 60.0 (>35); GLUCOSE, FASTING 134 MG/DL (70-100); POTASSIUM SERUM 3.2 MEQ/L (3.5-5.1); SODIUM LEVEL 133 MEQ/L (136-145)
[2021-09-15] MEDS ORDERED: HALOPERIDOL 5MG/ML VIAL (J1630 PER 1) IM ONE (08:05)
[2021-09-15] MEDS ORDERED: LORazepam 1 MG TAB PO ONE (08:05)
[2021-09-15] MEDS: SYMBICORT 80/4.5MCG INHALER 6GM INH SCH ×2 (10:31→20:05)
[2021-09-15] MEDS: TIOTROPIUM INHALER/CAPSULE (SPIRIVA) INH SCH (10:31)
[2021-09-15] MEDS: CARVedilol 12.5 MG TAB PO SCH ×2 (12:49→20:32)
[2021-09-15] MEDS: ASPIRIN 81MG ENTERIC TABLET PO SCH (12:50)
[2021-09-15] MEDS: THIAMINE 100 MG TAB PO SCH (12:50)
[2021-09-15] MEDS: lisinopriL 40MG TAB PO SCH (12:50)
[2021-09-15] MEDS: OYSTER SHELL CALCIUM 500 MG TAB PO SCH ×2 (12:50→20:31)
[2021-09-15] MEDS: FOLIC ACID 1MG TAB PO SCH (12:50)
[2021-09-15] MEDS: MULTIVITAMINS/MINERALS THERAP 1 TAB PO SCH (13:00)
[2021-09-15] MEDS: HEPARIN SOD (PORCINE) 5000UNITS/ML 1ML VIAL/SYRINGE SC SCH ×2 (13:01→20:31)
[2021-09-15] MEDS ORDERED: flumazeniL 0.5 MG/5 ML VIAL IV STA (17:04)
[2021-09-15] MEDS ORDERED: POTASSIUM CHLORIDE 10MEQ SR TABLET PO ONE (17:05)
[2021-09-15 17:17] VITALS: BP 90/40
[2021-09-15 18:00] VITALS: BP 90/40
[2021-09-15 22:00] VITALS: BP 119/93
[2021-09-16] MEDS: RAMELTEON 8 MG TAB (ROZEREM) PO PRN (01:51)
[2021-09-16 02:00] VITALS: BP 119/93
[2021-09-16] MEDS: IPRATROPIUM 0.5MG/ALBUTEROL 2.5MG INH SOL UD 3ML (DUONEB) INH SCH ×6 (04:00→23:15)
[2021-09-16 06:00] VITALS: BP 162/78
[2021-09-16] MEDS: SYMBICORT 80/4.5MCG INHALER 6GM INH SCH ×2 (07:49→19:13)
[2021-09-16] MEDS: TIOTROPIUM INHALER/CAPSULE (SPIRIVA) INH SCH (07:49)
[2021-09-16 08:17] LABS: BASO % 0.3 % (0.0-1.0); EOS # 0.1 10^3/uL (0.0-0.5); EOS % 0.9 % (0.0-3.0); HEMATOCRIT 37.5 % (42.0-52.0); HEMOGLOBIN 12.9 g/dl (13.5-17.5); LYMPH # 0.5 10^3/uL (1.5-5.0); LYMPH % 7.1 % (24.0-44.0); MEAN CORPUSCULAR HEMOGLOBIN 31.3 pg (27.0-33.0); MEAN CORPUSCULAR HGB CONC 34.4 g/dl (32.0-36.5); MONO # 0.9 10^3/uL (0.0-0.8); MONO % 11.6 % (2.0-8.0); NEUTROPHILS % 79.7 % (36.0-66.0); PLATELET COUNT, AUTOMATED 195 10^3/uL (150-450); RED BLOOD COUNT 4.12 10^6/uL (4.30-6.10); WHITE BLOOD COUNT 7.5 10^3/uL (4.0-10.0)
[2021-09-16 08:49] LABS: ALBUMIN 3.1 GM/DL (3.2-5.2); ALT/SGPT 21 U/L (12-78); BILIRUBIN,TOTAL 0.6 MG/DL (0.2-1.0); BLOOD UREA NITROGEN 17 MG/DL (7-18); CALCIUM LEVEL 8.3 MG/DL (8.8-10.2); CARBON DIOXIDE LEVEL 26 MEQ/L (21-32); CHLORIDE LEVEL 101 MEQ/L (98-107); CREATININE FOR GFR 0.65 MG/DL (0.70-1.30); GLOMERULAR FILTRATION RATE > 60.0 (>35); GLUCOSE, FASTING 110 MG/DL (70-100); POTASSIUM SERUM 4.3 MEQ/L (3.5-5.1); SODIUM LEVEL 133 MEQ/L (136-145); TOTAL PROTEIN 5.6 GM/DL (6.4-8.2)
[2021-09-16] MEDS: FOLIC ACID 1MG TAB PO SCH (08:59)
[2021-09-16] MEDS: ASPIRIN 81MG ENTERIC TABLET PO SCH (08:59)
[2021-09-16] MEDS: CARVedilol 12.5 MG TAB PO SCH ×2 (08:59→20:55)
[2021-09-16] MEDS: OYSTER SHELL CALCIUM 500 MG TAB PO SCH ×2 (09:00→20:51)
[2021-09-16] MEDS: MULTIVITAMINS/MINERALS THERAP 1 TAB PO SCH (09:00)
[2021-09-16] MEDS: lisinopriL 40MG TAB PO SCH (09:00)
[2021-09-16] MEDS: THIAMINE 100 MG TAB PO SCH (09:00)
[2021-09-16] MEDS: HEPARIN SOD (PORCINE) 5000UNITS/ML 1ML VIAL/SYRINGE SC SCH ×3 (09:01→21:00)
[2021-09-16 09:02] VITALS: BP 162/78
[2021-09-16] MEDS ORDERED: LORazepam 2 MG TAB PO PRN (11:05)
[2021-09-16 14:00] VITALS: BP_SYST 133; BP_SYST 140; BP_DIAS 76; BP_DIAS 87
[2021-09-16] MEDS ORDERED: MOM 30ML SUSPENSION UDC PO ONE (16:00)
[2021-09-16] MEDS: MIRALAX *UNIT DOSE* 17GM PACKET PO SCH (20:55)
[2021-09-16 21:13] VITALS: BP 170/80
[2021-09-16] MEDS ORDERED: chlordiazePOXIDE 25 MG CAP PO ONE (21:55)
[2021-09-17] MEDS: IPRATROPIUM 0.5MG/ALBUTEROL 2.5MG INH SOL UD 3ML (DUONEB) INH SCH ×6 (03:18→23:42)
[2021-09-17 05:55] VITALS: BP 138/82
[2021-09-17] MEDS: TIOTROPIUM INHALER/CAPSULE (SPIRIVA) INH SCH (07:29)
[2021-09-17] MEDS: SYMBICORT 80/4.5MCG INHALER 6GM INH SCH ×2 (07:29→19:49)
[2021-09-17 08:28] LABS: BASO % 0.5 % (0.0-1.0); EOS # 0.1 10^3/uL (0.0-0.5); EOS % 1.7 % (0.0-3.0); HEMATOCRIT 37.2 % (42.0-52.0); HEMOGLOBIN 12.7 g/dl (13.5-17.5); LYMPH # 0.6 10^3/uL (1.5-5.0); LYMPH % 9.4 % (24.0-44.0); MEAN CORPUSCULAR HEMOGLOBIN 31.3 pg (27.0-33.0); MEAN CORPUSCULAR HGB CONC 34.1 g/dl (32.0-36.5); MEAN CORPUSCULAR VOLUME 91.6 fl (80.0-96.0); MONO # 0.7 10^3/uL (0.0-0.8); MONO % 11.4 % (2.0-8.0); NEUTROPHILS # 4.5 10^3/uL (1.5-8.5); NEUTROPHILS % 76.5 % (36.0-66.0); PLATELET COUNT, AUTOMATED 229 10^3/uL (150-450); RED BLOOD COUNT 4.06 10^6/uL (4.30-6.10); WHITE BLOOD COUNT 5.9 10^3/uL (4.0-10.0)
[2021-09-17 08:56] LABS: ALBUMIN 2.8 GM/DL (3.2-5.2); ALT/SGPT 15 U/L (12-78); BILIRUBIN,TOTAL 0.6 MG/DL (0.2-1.0); BLOOD UREA NITROGEN 12 MG/DL (7-18); CALCIUM LEVEL 8.6 MG/DL (8.8-10.2); CARBON DIOXIDE LEVEL 26 MEQ/L (21-32); CHLORIDE LEVEL 104 MEQ/L (98-107); CREATININE FOR GFR 0.48 MG/DL (0.70-1.30); GLOMERULAR FILTRATION RATE > 60.0 (>35); GLUCOSE, FASTING 97 MG/DL (70-100); SODIUM LEVEL 137 MEQ/L (136-145); TOTAL PROTEIN 5.5 GM/DL (6.4-8.2)
[2021-09-17] MEDS: MULTIVITAMINS/MINERALS THERAP 1 TAB PO SCH (09:02)
[2021-09-17] MEDS: THIAMINE 100 MG TAB PO SCH (09:02)
[2021-09-17] MEDS: MIRALAX *UNIT DOSE* 17GM PACKET PO SCH ×2 (09:02→21:00)
[2021-09-17] MEDS: FOLIC ACID 1MG TAB PO SCH (09:02)
[2021-09-17] MEDS: OYSTER SHELL CALCIUM 500 MG TAB PO SCH ×2 (09:02→21:09)
[2021-09-17] MEDS: ASPIRIN 81MG ENTERIC TABLET PO SCH (09:02)
[2021-09-17] MEDS: HEPARIN SOD (PORCINE) 5000UNITS/ML 1ML VIAL/SYRINGE SC SCH ×3 (09:02→21:09)
[2021-09-17] MEDS: CARVedilol 12.5 MG TAB PO SCH ×2 (09:05→21:09)
[2021-09-17] MEDS: lisinopriL 40MG TAB PO SCH (09:05)
[2021-09-17 14:00] VITALS: BP 158/75
[2021-09-17] MEDS: RAMELTEON 8 MG TAB (ROZEREM) PO PRN (21:09)
[2021-09-17] MEDS: NORCO, ANEXSIA 5/325MG TABLET (HYDROcodone/ACETAMINOPHEN) PO PRN (21:13)
[2021-09-17 22:00] VITALS: BP 132/60
[2021-09-18] MEDS: IPRATROPIUM 0.5MG/ALBUTEROL 2.5MG INH SOL UD 3ML (DUONEB) INH SCH ×6 (03:09→23:28)
[2021-09-18 06:00] VITALS: BP 168/78
[2021-09-18] MEDS: SYMBICORT 80/4.5MCG INHALER 6GM INH SCH ×2 (07:24→20:14)
[2021-09-18] MEDS: TIOTROPIUM INHALER/CAPSULE (SPIRIVA) INH SCH (07:24)
[2021-09-18 08:27] LABS: BASO % 0.3 % (0.0-1.0); EOS # 0.2 10^3/uL (0.0-0.5); EOS % 2.3 % (0.0-3.0); HEMATOCRIT 39.9 % (42.0-52.0); HEMOGLOBIN 13.6 g/dl (13.5-17.5); LYMPH # 0.7 10^3/uL (1.5-5.0); LYMPH % 10.4 % (24.0-44.0); MEAN CORPUSCULAR HEMOGLOBIN 31.5 pg (27.0-33.0); MEAN CORPUSCULAR HGB CONC 34.1 g/dl (32.0-36.5); MEAN CORPUSCULAR VOLUME 92.4 fl (80.0-96.0); MONO # 0.6 10^3/uL (0.0-0.8); MONO % 9.4 % (2.0-8.0); NEUTROPHILS # 5.3 10^3/uL (1.5-8.5); NEUTROPHILS % 77.2 % (36.0-66.0); PLATELET COUNT, AUTOMATED 234 10^3/uL (150-450); RED BLOOD COUNT 4.32 10^6/uL (4.30-6.10); WHITE BLOOD COUNT 6.8 10^3/uL (4.0-10.0)
[2021-09-18 08:52] LABS: BLOOD UREA NITROGEN 12 MG/DL (7-18); CALCIUM LEVEL 8.8 MG/DL (8.8-10.2); CARBON DIOXIDE LEVEL 28 MEQ/L (21-32); CHLORIDE LEVEL 101 MEQ/L (98-107); CREATININE FOR GFR 0.57 MG/DL (0.70-1.30); GLOMERULAR FILTRATION RATE > 60.0 (>35); GLUCOSE, FASTING 105 MG/DL (70-100); POTASSIUM SERUM 4.2 MEQ/L (3.5-5.1); SODIUM LEVEL 135 MEQ/L (136-145)
[2021-09-18] MEDS: THIAMINE 100 MG TAB PO SCH (09:15)
[2021-09-18] MEDS: HEPARIN SOD (PORCINE) 5000UNITS/ML 1ML VIAL/SYRINGE SC SCH ×2 (09:15→20:26)
[2021-09-18] MEDS: FOLIC ACID 1MG TAB PO SCH (09:16)
[2021-09-18] MEDS: OYSTER SHELL CALCIUM 500 MG TAB PO SCH ×2 (09:16→20:26)
[2021-09-18] MEDS: lisinopriL 40MG TAB PO SCH (09:16)
[2021-09-18] MEDS: cefTRIAXone SOD 1 GM in D5W MINI-BAG PLUS 50 ML IV SCH (09:16)
[2021-09-18] MEDS: MULTIVITAMINS/MINERALS THERAP 1 TAB PO SCH (09:17)
[2021-09-18] MEDS: MIRALAX *UNIT DOSE* 17GM PACKET PO SCH ×2 (09:17→20:21)
[2021-09-18] MEDS: ASPIRIN 81MG ENTERIC TABLET PO SCH (09:17)
[2021-09-18] MEDS: CARVedilol 12.5 MG TAB PO SCH ×2 (09:17→20:26)
[2021-09-18 10:50] LABS: CK-MB VALUE MASS 1.7 NG/ML (<3.6); MB/CK RELATIVE INDEX 6.8 (< OR =4)
[2021-09-18 14:00] VITALS: BP 138/76
[2021-09-18] MEDS: DOXYCYCLINE HYCLATE 100MG TABLET PO SCH (18:24)
[2021-09-18] MEDS: RAMELTEON 8 MG TAB (ROZEREM) PO PRN (20:25)
[2021-09-18 20:45] VITALS: BP 162/81
[2021-09-19] MEDS ORDERED: CHLORASEPTIC SPRAY MT PRN
[2021-09-19] MEDS: CEPACOL LOZENGE PO PRN (00:06)
[2021-09-19] MEDS: NORCO, ANEXSIA 5/325MG TABLET (HYDROcodone/ACETAMINOPHEN) PO PRN ×2 (00:07→14:42)
[2021-09-19] MEDS: QUEtiapine FUMARATE 25 MG TAB PO PRN (01:21)
[2021-09-19] MEDS ORDERED: OXYMETAZOLINE 0.05% NASAL SPRAY (AFRIN) PRN (02:05)
[2021-09-19] MEDS: IPRATROPIUM 0.5MG/ALBUTEROL 2.5MG INH SOL UD 3ML (DUONEB) INH SCH ×6 (04:00→23:30)
[2021-09-19 06:19] VITALS: BP 159/81
[2021-09-19] MEDS: DOXYCYCLINE HYCLATE 100MG TABLET PO SCH ×2 (06:19→18:12)
[2021-09-19 08:16] LABS: BASO % 0.3 % (0.0-1.0); EOS # 0.2 10^3/uL (0.0-0.5); EOS % 2.6 % (0.0-3.0); HEMATOCRIT 38.8 % (42.0-52.0); LYMPH % 15.9 % (24.0-44.0); MEAN CORPUSCULAR HEMOGLOBIN 31.2 pg (27.0-33.0); MEAN CORPUSCULAR HGB CONC 33.5 g/dl (32.0-36.5); MONO # 0.7 10^3/uL (0.0-0.8); MONO % 11.8 % (2.0-8.0); NEUTROPHILS # 4.3 10^3/uL (1.5-8.5); NEUTROPHILS % 69.2 % (36.0-66.0); PLATELET COUNT, AUTOMATED 216 10^3/uL (150-450); RED BLOOD COUNT 4.17 10^6/uL (4.30-6.10); WHITE BLOOD COUNT 6.2 10^3/uL (4.0-10.0)
[2021-09-19] MEDS: ASPIRIN 81MG ENTERIC TABLET PO SCH (08:26)
[2021-09-19] MEDS: MIRALAX *UNIT DOSE* 17GM PACKET PO SCH ×3 (08:26→21:00)
[2021-09-19] MEDS: HEPARIN SOD (PORCINE) 5000UNITS/ML 1ML VIAL/SYRINGE SC SCH ×2 (08:26→20:58)
[2021-09-19] MEDS: FOLIC ACID 1MG TAB PO SCH (08:26)
[2021-09-19] MEDS: cefTRIAXone SOD 1 GM in D5W MINI-BAG PLUS 50 ML IV SCH (08:26)
[2021-09-19] MEDS: CARVedilol 12.5 MG TAB PO SCH ×2 (08:27→20:59)
[2021-09-19] MEDS: lisinopriL 40MG TAB PO SCH (08:27)
[2021-09-19] MEDS: THIAMINE 100 MG TAB PO SCH (08:27)
[2021-09-19] MEDS: MULTIVITAMINS/MINERALS THERAP 1 TAB PO SCH (08:27)
[2021-09-19] MEDS: OYSTER SHELL CALCIUM 500 MG TAB PO SCH ×2 (08:27→20:59)
[2021-09-19 08:38] LABS: BLOOD UREA NITROGEN 12 MG/DL (7-18); CALCIUM LEVEL 8.8 MG/DL (8.8-10.2); CARBON DIOXIDE LEVEL 31 MEQ/L (21-32); CHLORIDE LEVEL 103 MEQ/L (98-107); CREATININE FOR GFR 0.68 MG/DL (0.70-1.30); GLOMERULAR FILTRATION RATE > 60.0 (>35); GLUCOSE, FASTING 95 MG/DL (70-100); POTASSIUM SERUM 4.3 MEQ/L (3.5-5.1); SODIUM LEVEL 138 MEQ/L (136-145)
[2021-09-19] MEDS: SYMBICORT 80/4.5MCG INHALER 6GM INH SCH ×2 (10:27→19:14)
[2021-09-19] MEDS: TIOTROPIUM INHALER/CAPSULE (SPIRIVA) INH SCH (10:28)
[2021-09-19 14:00] VITALS: BP 109/64
[2021-09-19 20:55] VITALS: BP 155/77
[2021-09-19] MEDS: RAMELTEON 8 MG TAB (ROZEREM) PO PRN (22:46)
[2021-09-20] MEDS: QUEtiapine FUMARATE 25 MG TAB PO PRN (01:07)
[2021-09-20] MEDS: IPRATROPIUM 0.5MG/ALBUTEROL 2.5MG INH SOL UD 3ML (DUONEB) INH SCH ×6 (04:00→23:23)
[2021-09-20 05:47] VITALS: BP 170/85
[2021-09-20 05:59] VITALS: BP 170/68
[2021-09-20] MEDS: DOXYCYCLINE HYCLATE 100MG TABLET PO SCH ×2 (06:01→17:48)
[2021-09-20 06:11] LABS: BASO % 0.4 % (0.0-1.0); EOS # 0.2 10^3/uL (0.0-0.5); EOS % 2.9 % (0.0-3.0); HEMATOCRIT 35.6 % (42.0-52.0); HEMOGLOBIN 12.4 g/dl (13.5-17.5); LYMPH % 14.5 % (24.0-44.0); MEAN CORPUSCULAR HEMOGLOBIN 32.5 pg (27.0-33.0); MEAN CORPUSCULAR HGB CONC 34.8 g/dl (32.0-36.5); MEAN CORPUSCULAR VOLUME 93.2 fl (80.0-96.0); MONO # 0.6 10^3/uL (0.0-0.8); MONO % 9.1 % (2.0-8.0); NEUTROPHILS % 72.4 % (36.0-66.0); PLATELET COUNT, AUTOMATED 221 10^3/uL (150-450); RED BLOOD COUNT 3.82 10^6/uL (4.30-6.10); WHITE BLOOD COUNT 6.9 10^3/uL (4.0-10.0)
[2021-09-20] MEDS: ONDANSETRON 4MG ORAL DISINTEGRATING TAB PO PRN (06:15)
[2021-09-20] MEDS: CARVedilol 12.5 MG TAB PO SCH ×2 (06:16→21:00)
[2021-09-20 06:34] LABS: BLOOD UREA NITROGEN 18 MG/DL (7-18); CALCIUM LEVEL 8.9 MG/DL (8.8-10.2); CARBON DIOXIDE LEVEL 29 MEQ/L (21-32); CHLORIDE LEVEL 102 MEQ/L (98-107); CREATININE FOR GFR 0.68 MG/DL (0.70-1.30); GLOMERULAR FILTRATION RATE > 60.0 (>35); GLUCOSE, FASTING 94 MG/DL (70-100); MAGNESIUM LEVEL 2.1 MG/DL (1.8-2.4); POTASSIUM SERUM 4.1 MEQ/L (3.5-5.1); SODIUM LEVEL 134 MEQ/L (136-145)
[2021-09-20] MEDS: SYMBICORT 80/4.5MCG INHALER 6GM INH SCH ×2 (07:33→20:07)
[2021-09-20] MEDS: TIOTROPIUM INHALER/CAPSULE (SPIRIVA) INH SCH (07:33)
[2021-09-20 07:54] VITALS: BP 111/68
[2021-09-20] MEDS: MIRALAX *UNIT DOSE* 17GM PACKET PO SCH ×2 (08:25→20:57)
[2021-09-20] MEDS: cefTRIAXone SOD 1 GM in D5W MINI-BAG PLUS 50 ML IV SCH (08:25)
[2021-09-20] MEDS: HEPARIN SOD (PORCINE) 5000UNITS/ML 1ML VIAL/SYRINGE SC SCH ×2 (08:26→20:51)
[2021-09-20] MEDS: ASPIRIN 81MG ENTERIC TABLET PO SCH (08:26)
[2021-09-20] MEDS: OYSTER SHELL CALCIUM 500 MG TAB PO SCH ×2 (08:26→20:52)
[2021-09-20] MEDS: THIAMINE 100 MG TAB PO SCH (08:26)
[2021-09-20] MEDS: FOLIC ACID 1MG TAB PO SCH (08:26)
[2021-09-20] MEDS: MULTIVITAMINS/MINERALS THERAP 1 TAB PO SCH (08:26)
[2021-09-20 10:03] LABS: BILIRUBIN, URINE MANUAL NEGATIVE (NEGATIVE); GLUCOSE, URINE (UA) MANUAL NEGATIVE (NEGATIVE); KETONE, URINE MANUAL NEGATIVE (NEGATIVE); UROBILINOGEN, URINE MANUAL NORMAL (NORMAL)
[2021-09-20] MEDS: lisinopriL 40MG TAB PO SCH (10:06)
[2021-09-20 10:15] LABS: BACTERIA, URINE SMALL AMOUNT; HYALINE CAST, URINE NONE SEEN /lpf (0-1); RBC, URINE 0-1 /hpf (0-3); SQUAMOUS EPITHELIAL CELL URINE NONE SEEN /hpf (SMALL AMT)
[2021-09-20 10:16] LABS: AMORPHOUS SEDIMENT, URINE SMALL AMOUNT (NEGATIVE); MUCUS, URINE SMALL AMOUNT (NEGATIVE)
[2021-09-20 14:00] VITALS: BP 114/65
[2021-09-20] MEDS: RAMELTEON 8 MG TAB (ROZEREM) PO PRN (20:51)
[2021-09-20] MEDS: CEPACOL LOZENGE PO PRN (20:52)
[2021-09-20 21:00] VITALS: BP 115/61
[2021-09-21] MEDS: QUEtiapine FUMARATE 25 MG TAB PO PRN (02:40)
[2021-09-21] MEDS: IPRATROPIUM 0.5MG/ALBUTEROL 2.5MG INH SOL UD 3ML (DUONEB) INH SCH ×5 (04:00→19:56)
[2021-09-21 06:27] LABS: HEMATOCRIT 36.7 % (42.0-52.0); HEMOGLOBIN 12.6 g/dl (13.5-17.5); MEAN CORPUSCULAR HEMOGLOBIN 31.8 pg (27.0-33.0); MEAN CORPUSCULAR HGB CONC 34.3 g/dl (32.0-36.5); MEAN CORPUSCULAR VOLUME 92.7 fl (80.0-96.0); PLATELET COUNT, AUTOMATED 238 10^3/uL (150-450); RED BLOOD COUNT 3.96 10^6/uL (4.30-6.10); WHITE BLOOD COUNT 7.1 10^3/uL (4.0-10.0)
[2021-09-21] MEDS: DOXYCYCLINE HYCLATE 100MG TABLET PO SCH ×2 (06:30→17:20)
[2021-09-21] MEDS: TIOTROPIUM INHALER/CAPSULE (SPIRIVA) INH SCH (07:13)
[2021-09-21] MEDS: SYMBICORT 80/4.5MCG INHALER 6GM INH SCH ×2 (07:13→19:56)
[2021-09-21 07:15] LABS: ALBUMIN 2.7 GM/DL (3.2-5.2); ALT/SGPT 20 U/L (12-78); BILIRUBIN,TOTAL 0.5 MG/DL (0.2-1.0); BLOOD UREA NITROGEN 16 MG/DL (7-18); CARBON DIOXIDE LEVEL 29 MEQ/L (21-32); CHLORIDE LEVEL 103 MEQ/L (98-107); CREATININE FOR GFR 0.71 MG/DL (0.70-1.30); GLOMERULAR FILTRATION RATE > 60.0 (>35); GLUCOSE, FASTING 103 MG/DL (70-100); POTASSIUM SERUM 4.1 MEQ/L (3.5-5.1); SODIUM LEVEL 135 MEQ/L (136-145); TOTAL PROTEIN 5.8 GM/DL (6.4-8.2)
[2021-09-21] MEDS: ONDANSETRON 4MG ORAL DISINTEGRATING TAB PO PRN (08:39)
[2021-09-21] MEDS: ASPIRIN 81MG ENTERIC TABLET PO SCH (08:42)
[2021-09-21] MEDS: OYSTER SHELL CALCIUM 500 MG TAB PO SCH ×2 (08:43→20:00)
[2021-09-21] MEDS: THIAMINE 100 MG TAB PO SCH (08:43)
[2021-09-21] MEDS: FOLIC ACID 1MG TAB PO SCH (08:43)
[2021-09-21] MEDS: MULTIVITAMINS/MINERALS THERAP 1 TAB PO SCH (08:43)
[2021-09-21] MEDS: MIRALAX *UNIT DOSE* 17GM PACKET PO SCH ×2 (08:44→20:01)
[2021-09-21] MEDS: CARVedilol 12.5 MG TAB PO SCH ×2 (08:44→20:00)
[2021-09-21] MEDS: cefTRIAXone SOD 1 GM in D5W MINI-BAG PLUS 50 ML IV SCH (08:44)
[2021-09-21] MEDS: HEPARIN SOD (PORCINE) 5000UNITS/ML 1ML VIAL/SYRINGE SC SCH ×2 (08:44→20:00)
[2021-09-21] MEDS: lisinopriL 40MG TAB PO SCH (09:00)
[2021-09-21] MEDS: NORCO, ANEXSIA 5/325MG TABLET (HYDROcodone/ACETAMINOPHEN) PO PRN ×2 (13:59→21:18)
[2021-09-21 14:46] VITALS: BP 103/61
[2021-09-21] MEDS ORDERED: MIRA1POW3 PO (18:51)
[2021-09-21] MEDS ORDERED: RAME8TAB2 PO (18:51)
[2021-09-21] MEDS ORDERED: SYMB80INH INH (18:51)
[2021-09-21] MEDS ORDERED: FOLI1TAB11 PO (18:51)
[2021-09-21] MEDS ORDERED: THIA100TA PO (18:51)
[2021-09-21] MEDS ORDERED: QUET1TAB17 PO (18:51)
[2021-09-21] MEDS ORDERED: DOXY100T PO (18:51)
[2021-09-21] MEDS ORDERED: VITMTA PO (18:51)
[2021-09-21] MEDS ORDERED: ACET32TAB PO (18:53)
[2021-09-21 19:31] VITALS: BP 126/63
[2021-09-21 19:57] VITALS: BP 122/63
[2021-09-21] MEDS: RAMELTEON 8 MG TAB (ROZEREM) PO PRN (21:17)
[2021-09-22] MEDS: IPRATROPIUM 0.5MG/ALBUTEROL 2.5MG INH SOL UD 3ML (DUONEB) INH SCH ×6 (00:34→19:55)
[2021-09-22] MEDS: QUEtiapine FUMARATE 25 MG TAB PO PRN ×2 (00:55→17:58)
[2021-09-22 05:55] LABS: HEMATOCRIT 37.6 % (42.0-52.0); HEMOGLOBIN 12.8 g/dl (13.5-17.5); MEAN CORPUSCULAR HEMOGLOBIN 32.3 pg (27.0-33.0); MEAN CORPUSCULAR VOLUME 94.9 fl (80.0-96.0); PLATELET COUNT, AUTOMATED 253 10^3/uL (150-450); RED BLOOD COUNT 3.96 10^6/uL (4.30-6.10)
[2021-09-22] MEDS: DOXYCYCLINE HYCLATE 100MG TABLET PO SCH ×2 (06:05→17:58)
[2021-09-22 06:24] LABS: ALBUMIN 2.9 GM/DL (3.2-5.2); ALT/SGPT 21 U/L (12-78); BILIRUBIN,TOTAL 0.3 MG/DL (0.2-1.0); BLOOD UREA NITROGEN 15 MG/DL (7-18); CALCIUM LEVEL 9.3 MG/DL (8.8-10.2); CARBON DIOXIDE LEVEL 29 MEQ/L (21-32); CHLORIDE LEVEL 104 MEQ/L (98-107); CREATININE FOR GFR 0.64 MG/DL (0.70-1.30); GLOMERULAR FILTRATION RATE > 60.0 (>35); GLUCOSE, FASTING 89 MG/DL (70-100); POTASSIUM SERUM 4.4 MEQ/L (3.5-5.1); SODIUM LEVEL 139 MEQ/L (136-145); TOTAL PROTEIN 5.7 GM/DL (6.4-8.2)
[2021-09-22 06:55] VITALS: BP_SYST 183; BP_SYST 188; BP_DIAS 81; BP_DIAS 90
[2021-09-22] MEDS: SYMBICORT 80/4.5MCG INHALER 6GM INH SCH ×2 (07:34→19:55)
[2021-09-22] MEDS: TIOTROPIUM INHALER/CAPSULE (SPIRIVA) INH SCH (07:34)
[2021-09-22] MEDS: MIRALAX *UNIT DOSE* 17GM PACKET PO SCH ×2 (08:16→19:56)
[2021-09-22] MEDS: HEPARIN SOD (PORCINE) 5000UNITS/ML 1ML VIAL/SYRINGE SC SCH ×2 (08:44→19:57)
[2021-09-22] MEDS: THIAMINE 100 MG TAB PO SCH (08:45)
[2021-09-22] MEDS: ASPIRIN 81MG ENTERIC TABLET PO SCH (08:45)
[2021-09-22] MEDS: MULTIVITAMINS/MINERALS THERAP 1 TAB PO SCH (08:45)
[2021-09-22] MEDS: OYSTER SHELL CALCIUM 500 MG TAB PO SCH ×2 (08:45→19:57)
[2021-09-22] MEDS: lisinopriL 40MG TAB PO SCH (08:45)
[2021-09-22] MEDS: CARVedilol 12.5 MG TAB PO SCH ×2 (08:46→19:56)
[2021-09-22] MEDS: FOLIC ACID 1MG TAB PO SCH (08:46)
[2021-09-22] MEDS: NORCO, ANEXSIA 5/325MG TABLET (HYDROcodone/ACETAMINOPHEN) PO PRN ×2 (08:47→18:00)
[2021-09-22 14:00] VITALS: BP 104/58
[2021-09-22 19:56] VITALS: BP 94/49
[2021-09-22] MEDS: RAMELTEON 8 MG TAB (ROZEREM) PO PRN (19:57)
[2021-09-23] MEDS: IPRATROPIUM 0.5MG/ALBUTEROL 2.5MG INH SOL UD 3ML (DUONEB) INH SCH ×6 (04:00→20:00)
[2021-09-23] MEDS: DOXYCYCLINE HYCLATE 100MG TABLET PO SCH ×2 (05:37→18:03)
[2021-09-23 05:51] LABS: HEMATOCRIT 37.8 % (42.0-52.0); HEMOGLOBIN 13.1 g/dl (13.5-17.5); MEAN CORPUSCULAR HEMOGLOBIN 32.5 pg (27.0-33.0); MEAN CORPUSCULAR HGB CONC 34.7 g/dl (32.0-36.5); MEAN CORPUSCULAR VOLUME 93.8 fl (80.0-96.0); PLATELET COUNT, AUTOMATED 263 10^3/uL (150-450); RED BLOOD COUNT 4.03 10^6/uL (4.30-6.10); WHITE BLOOD COUNT 6.5 10^3/uL (4.0-10.0)
[2021-09-23 06:00] VITALS: BP 143/70
[2021-09-23 06:25] LABS: ALBUMIN 2.8 GM/DL (3.2-5.2); ALT/SGPT 24 U/L (12-78); BILIRUBIN,TOTAL 0.6 MG/DL (0.2-1.0); BLOOD UREA NITROGEN 16 MG/DL (7-18); CALCIUM LEVEL 9.1 MG/DL (8.8-10.2); CARBON DIOXIDE LEVEL 30 MEQ/L (21-32); CHLORIDE LEVEL 107 MEQ/L (98-107); CREATININE FOR GFR 0.66 MG/DL (0.70-1.30); GLOMERULAR FILTRATION RATE > 60.0 (>35); GLUCOSE, FASTING 94 MG/DL (70-100); POTASSIUM SERUM 4.4 MEQ/L (3.5-5.1); SODIUM LEVEL 142 MEQ/L (136-145)
[2021-09-23] MEDS: SYMBICORT 80/4.5MCG INHALER 6GM INH SCH ×2 (07:17→20:00)
[2021-09-23] MEDS: TIOTROPIUM INHALER/CAPSULE (SPIRIVA) INH SCH (07:17)
[2021-09-23] MEDS: THIAMINE 100 MG TAB PO SCH (08:11)
[2021-09-23] MEDS: MULTIVITAMINS/MINERALS THERAP 1 TAB PO SCH (08:11)
[2021-09-23] MEDS: lisinopriL 40MG TAB PO SCH (08:11)
[2021-09-23] MEDS: OYSTER SHELL CALCIUM 500 MG TAB PO SCH ×2 (08:11→20:53)
[2021-09-23] MEDS: ASPIRIN 81MG ENTERIC TABLET PO SCH (08:11)
[2021-09-23] MEDS: CARVedilol 12.5 MG TAB PO SCH ×2 (08:13→20:54)
[2021-09-23] MEDS: QUEtiapine FUMARATE 25 MG TAB PO PRN ×2 (08:14→18:49)
[2021-09-23] MEDS: FOLIC ACID 1MG TAB PO SCH (08:14)
[2021-09-23] MEDS: MIRALAX *UNIT DOSE* 17GM PACKET PO SCH ×2 (08:14→20:53)
[2021-09-23] MEDS: HEPARIN SOD (PORCINE) 5000UNITS/ML 1ML VIAL/SYRINGE SC SCH ×2 (08:14→20:53)
[2021-09-23] MEDS: NORCO, ANEXSIA 5/325MG TABLET (HYDROcodone/ACETAMINOPHEN) PO PRN ×2 (11:48→17:36)
[2021-09-23 14:00] VITALS: BP 139/106
[2021-09-23] MEDS: RAMELTEON 8 MG TAB (ROZEREM) PO PRN (22:08)
[2021-09-24] MEDS: IPRATROPIUM 0.5MG/ALBUTEROL 2.5MG INH SOL UD 3ML (DUONEB) INH SCH ×7 (01:28→23:53)
[2021-09-24] MEDS: DOXYCYCLINE HYCLATE 100MG TABLET PO SCH ×2 (05:48→16:50)
[2021-09-24 05:51] VITALS: BP 208/98
[2021-09-24] MEDS: CARVedilol 12.5 MG TAB PO SCH ×2 (06:21→22:12)
[2021-09-24] MEDS: TIOTROPIUM INHALER/CAPSULE (SPIRIVA) INH SCH (07:18)
[2021-09-24] MEDS: SYMBICORT 80/4.5MCG INHALER 6GM INH SCH ×2 (07:18→20:00)
[2021-09-24 07:58] LABS: HEMATOCRIT 40.8 % (42.0-52.0); HEMOGLOBIN 13.5 g/dl (13.5-17.5); MEAN CORPUSCULAR HEMOGLOBIN 31.4 pg (27.0-33.0); MEAN CORPUSCULAR HGB CONC 33.1 g/dl (32.0-36.5); MEAN CORPUSCULAR VOLUME 94.9 fl (80.0-96.0); PLATELET COUNT, AUTOMATED 285 10^3/uL (150-450); WHITE BLOOD COUNT 7.7 10^3/uL (4.0-10.0)
[2021-09-24] MEDS: lisinopriL 40MG TAB PO SCH (08:13)
[2021-09-24] MEDS: MULTIVITAMINS/MINERALS THERAP 1 TAB PO SCH (08:13)
[2021-09-24] MEDS: FOLIC ACID 1MG TAB PO SCH (08:13)
[2021-09-24] MEDS: HEPARIN SOD (PORCINE) 5000UNITS/ML 1ML VIAL/SYRINGE SC SCH ×2 (08:13→22:18)
[2021-09-24] MEDS: THIAMINE 100 MG TAB PO SCH (08:13)
[2021-09-24] MEDS: OYSTER SHELL CALCIUM 500 MG TAB PO SCH ×2 (08:13→22:17)
[2021-09-24] MEDS: ASPIRIN 81MG ENTERIC TABLET PO SCH (08:13)
[2021-09-24] MEDS: MIRALAX *UNIT DOSE* 17GM PACKET PO SCH ×2 (08:14→21:00)
[2021-09-24] MEDS: NORCO, ANEXSIA 5/325MG TABLET (HYDROcodone/ACETAMINOPHEN) PO PRN ×2 (08:20→15:34)
[2021-09-24] MEDS: QUEtiapine FUMARATE 25 MG TAB PO PRN ×2 (08:20→16:50)
[2021-09-24 08:23] LABS: ALBUMIN 3.2 GM/DL (3.2-5.2); ALT/SGPT 22 U/L (12-78); BILIRUBIN,TOTAL 0.5 MG/DL (0.2-1.0); BLOOD UREA NITROGEN 17 MG/DL (7-18); CALCIUM LEVEL 9.5 MG/DL (8.8-10.2); CARBON DIOXIDE LEVEL 31 MEQ/L (21-32); CHLORIDE LEVEL 101 MEQ/L (98-107); CREATININE FOR GFR 0.59 MG/DL (0.70-1.30); GLOMERULAR FILTRATION RATE > 60.0 (>35); GLUCOSE, FASTING 94 MG/DL (70-100); POTASSIUM SERUM 4.3 MEQ/L (3.5-5.1); SODIUM LEVEL 136 MEQ/L (136-145); TOTAL PROTEIN 6.9 GM/DL (6.4-8.2)
[2021-09-24 09:00] VITALS: BP 160/92
[2021-09-24 18:00] VITALS: BP 114/59
[2021-09-25] MEDS: IPRATROPIUM 0.5MG/ALBUTEROL 2.5MG INH SOL UD 3ML (DUONEB) INH SCH ×5 (04:22→19:52)
[2021-09-25 05:11] VITALS: BP 152/74
[2021-09-25] MEDS: DOXYCYCLINE HYCLATE 100MG TABLET PO SCH (05:14)
[2021-09-25 06:14] LABS: HEMATOCRIT 41.3 % (42.0-52.0); HEMOGLOBIN 13.9 g/dl (13.5-17.5); MEAN CORPUSCULAR HEMOGLOBIN 31.7 pg (27.0-33.0); MEAN CORPUSCULAR HGB CONC 33.7 g/dl (32.0-36.5); MEAN CORPUSCULAR VOLUME 94.3 fl (80.0-96.0); PLATELET COUNT, AUTOMATED 288 10^3/uL (150-450); RED BLOOD COUNT 4.38 10^6/uL (4.30-6.10); WHITE BLOOD COUNT 7.1 10^3/uL (4.0-10.0)
[2021-09-25 06:36] LABS: ALBUMIN 3.3 GM/DL (3.2-5.2); ALT/SGPT 26 U/L (12-78); BILIRUBIN,TOTAL 0.6 MG/DL (0.2-1.0); BLOOD UREA NITROGEN 15 MG/DL (7-18); CALCIUM LEVEL 9.3 MG/DL (8.8-10.2); CARBON DIOXIDE LEVEL 31 MEQ/L (21-32); CHLORIDE LEVEL 103 MEQ/L (98-107); CREATININE FOR GFR 0.68 MG/DL (0.70-1.30); GLOMERULAR FILTRATION RATE > 60.0 (>35); GLUCOSE, FASTING 96 MG/DL (70-100); SODIUM LEVEL 137 MEQ/L (136-145); TOTAL PROTEIN 7.1 GM/DL (6.4-8.2)
[2021-09-25] MEDS: SYMBICORT 80/4.5MCG INHALER 6GM INH SCH ×2 (07:22→19:50)
[2021-09-25] MEDS: TIOTROPIUM INHALER/CAPSULE (SPIRIVA) INH SCH (07:22)
[2021-09-25] MEDS: MIRALAX *UNIT DOSE* 17GM PACKET PO SCH ×2 (09:03→20:10)
[2021-09-25] MEDS: HEPARIN SOD (PORCINE) 5000UNITS/ML 1ML VIAL/SYRINGE SC SCH ×2 (09:03→20:06)
[2021-09-25] MEDS: ASPIRIN 81MG ENTERIC TABLET PO SCH (09:03)
[2021-09-25] MEDS: NORCO, ANEXSIA 5/325MG TABLET (HYDROcodone/ACETAMINOPHEN) PO PRN ×2 (09:04→14:12)
[2021-09-25] MEDS: OYSTER SHELL CALCIUM 500 MG TAB PO SCH ×2 (09:04→20:06)
[2021-09-25] MEDS: MULTIVITAMINS/MINERALS THERAP 1 TAB PO SCH (09:04)
[2021-09-25] MEDS: QUEtiapine FUMARATE 25 MG TAB PO PRN ×2 (09:04→20:06)
[2021-09-25] MEDS: lisinopriL 40MG TAB PO SCH (09:05)
[2021-09-25] MEDS: THIAMINE 100 MG TAB PO SCH (09:05)
[2021-09-25] MEDS: CARVedilol 12.5 MG TAB PO SCH ×2 (09:05→20:09)
[2021-09-25] MEDS: FOLIC ACID 1MG TAB PO SCH (09:10)
[2021-09-25] MEDS: RAMELTEON 8 MG TAB (ROZEREM) PO PRN (20:05)
[2021-09-26] MEDS: IPRATROPIUM 0.5MG/ALBUTEROL 2.5MG INH SOL UD 3ML (DUONEB) INH SCH ×7 (03:29→23:52)
[2021-09-26 05:56] LABS: HEMATOCRIT 38.4 % (42.0-52.0); HEMOGLOBIN 12.8 g/dl (13.5-17.5); MEAN CORPUSCULAR HEMOGLOBIN 31.6 pg (27.0-33.0); MEAN CORPUSCULAR HGB CONC 33.3 g/dl (32.0-36.5); MEAN CORPUSCULAR VOLUME 94.8 fl (80.0-96.0); PLATELET COUNT, AUTOMATED 258 10^3/uL (150-450); RED BLOOD COUNT 4.05 10^6/uL (4.30-6.10); WHITE BLOOD COUNT 7.2 10^3/uL (4.0-10.0)
[2021-09-26 06:00] VITALS: BP 134/63
[2021-09-26 06:20] LABS: ALBUMIN 3.1 GM/DL (3.2-5.2); ALT/SGPT 22 U/L (12-78); BILIRUBIN,TOTAL 0.5 MG/DL (0.2-1.0); BLOOD UREA NITROGEN 14 MG/DL (7-18); CALCIUM LEVEL 9.2 MG/DL (8.8-10.2); CARBON DIOXIDE LEVEL 30 MEQ/L (21-32); CHLORIDE LEVEL 102 MEQ/L (98-107); CREATININE FOR GFR 0.68 MG/DL (0.70-1.30); GLOMERULAR FILTRATION RATE > 60.0 (>35); GLUCOSE, FASTING 101 MG/DL (70-100); POTASSIUM SERUM 4.6 MEQ/L (3.5-5.1); SODIUM LEVEL 136 MEQ/L (136-145); TOTAL PROTEIN 6.1 GM/DL (6.4-8.2)
[2021-09-26] MEDS: TIOTROPIUM INHALER/CAPSULE (SPIRIVA) INH SCH (07:44)
[2021-09-26] MEDS: SYMBICORT 80/4.5MCG INHALER 6GM INH SCH ×2 (07:45→19:43)
[2021-09-26] MEDS: HEPARIN SOD (PORCINE) 5000UNITS/ML 1ML VIAL/SYRINGE SC SCH ×2 (08:58→20:12)
[2021-09-26] MEDS: ASPIRIN 81MG ENTERIC TABLET PO SCH (08:58)
[2021-09-26] MEDS: MULTIVITAMINS/MINERALS THERAP 1 TAB PO SCH (08:58)
[2021-09-26] MEDS: guaiFENesin ER 600 MG TAB PO SCH ×2 (08:58→20:13)
[2021-09-26] MEDS: lisinopriL 40MG TAB PO SCH (08:58)
[2021-09-26] MEDS: OYSTER SHELL CALCIUM 500 MG TAB PO SCH ×2 (08:58→20:12)
[2021-09-26] MEDS: CARVedilol 12.5 MG TAB PO SCH ×2 (08:59→20:14)
[2021-09-26] MEDS: THIAMINE 100 MG TAB PO SCH (08:59)
[2021-09-26] MEDS: MIRALAX *UNIT DOSE* 17GM PACKET PO SCH ×2 (08:59→20:12)
[2021-09-26] MEDS: FOLIC ACID 1MG TAB PO SCH (08:59)
[2021-09-26] MEDS: QUEtiapine FUMARATE 25 MG TAB PO PRN (13:45)
[2021-09-26] MEDS: RAMELTEON 8 MG TAB (ROZEREM) PO PRN (21:33)
[2021-09-27] MEDS: IPRATROPIUM 0.5MG/ALBUTEROL 2.5MG INH SOL UD 3ML (DUONEB) INH SCH ×5 (04:00→19:32)
[2021-09-27] MEDS: ACETAMINOPHEN TAB 650MG DOSE (2X325MG) PO PRN (04:39)
[2021-09-27 05:34] VITALS: BP 132/55
[2021-09-27 06:47] LABS: HEMATOCRIT 36.2 % (42.0-52.0); HEMOGLOBIN 12.4 g/dl (13.5-17.5); MEAN CORPUSCULAR HEMOGLOBIN 31.7 pg (27.0-33.0); MEAN CORPUSCULAR HGB CONC 34.3 g/dl (32.0-36.5); MEAN CORPUSCULAR VOLUME 92.6 fl (80.0-96.0); PLATELET COUNT, AUTOMATED 237 10^3/uL (150-450); RED BLOOD COUNT 3.91 10^6/uL (4.30-6.10); WHITE BLOOD COUNT 6.1 10^3/uL (4.0-10.0)
[2021-09-27 07:11] LABS: ALT/SGPT 22 U/L (12-78); BILIRUBIN,TOTAL 0.4 MG/DL (0.2-1.0); BLOOD UREA NITROGEN 11 MG/DL (7-18); CALCIUM LEVEL 8.8 MG/DL (8.8-10.2); CARBON DIOXIDE LEVEL 27 MEQ/L (21-32); CHLORIDE LEVEL 104 MEQ/L (98-107); CREATININE FOR GFR 0.58 MG/DL (0.70-1.30); GLOMERULAR FILTRATION RATE > 60.0 (>35); GLUCOSE, FASTING 111 MG/DL (70-100); POTASSIUM SERUM 4.1 MEQ/L (3.5-5.1); SODIUM LEVEL 137 MEQ/L (136-145); TOTAL PROTEIN 5.7 GM/DL (6.4-8.2)
[2021-09-27] MEDS: TIOTROPIUM INHALER/CAPSULE (SPIRIVA) INH SCH (07:25)
[2021-09-27] MEDS: SYMBICORT 80/4.5MCG INHALER 6GM INH SCH ×2 (07:25→19:33)
[2021-09-27] MEDS: guaiFENesin ER 600 MG TAB PO SCH ×2 (08:10→21:24)
[2021-09-27] MEDS: HEPARIN SOD (PORCINE) 5000UNITS/ML 1ML VIAL/SYRINGE SC SCH ×3 (08:10→21:24)
[2021-09-27] MEDS: FOLIC ACID 1MG TAB PO SCH (08:10)
[2021-09-27] MEDS: CARVedilol 12.5 MG TAB PO SCH ×2 (08:10→21:24)
[2021-09-27] MEDS: ASPIRIN 81MG ENTERIC TABLET PO SCH (08:10)
[2021-09-27] MEDS: QUEtiapine FUMARATE 25 MG TAB PO PRN (08:10)
[2021-09-27] MEDS: THIAMINE 100 MG TAB PO SCH (08:10)
[2021-09-27] MEDS: MIRALAX *UNIT DOSE* 17GM PACKET PO SCH ×2 (08:10→21:24)
[2021-09-27] MEDS: MULTIVITAMINS/MINERALS THERAP 1 TAB PO SCH (08:11)
[2021-09-27] MEDS: lisinopriL 40MG TAB PO SCH (08:11)
[2021-09-27] MEDS: OYSTER SHELL CALCIUM 500 MG TAB PO SCH ×2 (08:11→21:24)
[2021-09-27] MEDS: NORCO, ANEXSIA 5/325MG TABLET (HYDROcodone/ACETAMINOPHEN) PO PRN (14:09)
[2021-09-28] MEDS: IPRATROPIUM 0.5MG/ALBUTEROL 2.5MG INH SOL UD 3ML (DUONEB) INH SCH ×6 (04:00→19:45)
[2021-09-28 05:48] VITALS: BP 148/73
[2021-09-28 06:06] LABS: HEMATOCRIT 37.4 % (42.0-52.0); HEMOGLOBIN 12.5 g/dl (13.5-17.5); MEAN CORPUSCULAR HEMOGLOBIN 31.6 pg (27.0-33.0); MEAN CORPUSCULAR HGB CONC 33.4 g/dl (32.0-36.5); MEAN CORPUSCULAR VOLUME 94.4 fl (80.0-96.0); PLATELET COUNT, AUTOMATED 237 10^3/uL (150-450); RED BLOOD COUNT 3.96 10^6/uL (4.30-6.10); WHITE BLOOD COUNT 5.7 10^3/uL (4.0-10.0)
[2021-09-28 06:34] LABS: ALBUMIN 2.8 GM/DL (3.2-5.2); ALT/SGPT 23 U/L (12-78); BILIRUBIN,TOTAL 0.5 MG/DL (0.2-1.0); BLOOD UREA NITROGEN 10 MG/DL (7-18); CALCIUM LEVEL 9.2 MG/DL (8.8-10.2); CARBON DIOXIDE LEVEL 31 MEQ/L (21-32); CHLORIDE LEVEL 104 MEQ/L (98-107); CREATININE FOR GFR 0.67 MG/DL (0.70-1.30); GLOMERULAR FILTRATION RATE > 60.0 (>35); GLUCOSE, FASTING 95 MG/DL (70-100); POTASSIUM SERUM 4.3 MEQ/L (3.5-5.1); SODIUM LEVEL 138 MEQ/L (136-145)
[2021-09-28] MEDS: TIOTROPIUM INHALER/CAPSULE (SPIRIVA) INH SCH (07:45)
[2021-09-28] MEDS: SYMBICORT 80/4.5MCG INHALER 6GM INH SCH ×2 (07:46→19:45)
[2021-09-28] MEDS: HEPARIN SOD (PORCINE) 5000UNITS/ML 1ML VIAL/SYRINGE SC SCH ×2 (08:49→20:10)
[2021-09-28] MEDS: MIRALAX *UNIT DOSE* 17GM PACKET PO SCH ×3 (08:49→20:11)
[2021-09-28] MEDS: QUEtiapine FUMARATE 25 MG TAB PO PRN ×2 (08:50→22:35)
[2021-09-28] MEDS: THIAMINE 100 MG TAB PO SCH (08:50)
[2021-09-28] MEDS: ASPIRIN 81MG ENTERIC TABLET PO SCH (08:50)
[2021-09-28] MEDS: MULTIVITAMINS/MINERALS THERAP 1 TAB PO SCH (08:50)
[2021-09-28] MEDS: guaiFENesin ER 600 MG TAB PO SCH ×2 (08:50→20:10)
[2021-09-28] MEDS: FOLIC ACID 1MG TAB PO SCH (08:50)
[2021-09-28] MEDS: lisinopriL 40MG TAB PO SCH (08:50)
[2021-09-28] MEDS: OYSTER SHELL CALCIUM 500 MG TAB PO SCH ×2 (08:50→20:09)
[2021-09-28] MEDS: CARVedilol 12.5 MG TAB PO SCH ×2 (08:50→20:09)
[2021-09-28] MEDS: RAMELTEON 8 MG TAB (ROZEREM) PO PRN (20:15)
[2021-09-29] MEDS: IPRATROPIUM 0.5MG/ALBUTEROL 2.5MG INH SOL UD 3ML (DUONEB) INH SCH ×5 (04:00→16:00)
[2021-09-29 06:00] VITALS: BP 154/74
[2021-09-29 06:42] LABS: HEMOGLOBIN 12.4 g/dl (13.5-17.5); MEAN CORPUSCULAR HGB CONC 33.5 g/dl (32.0-36.5); MEAN CORPUSCULAR VOLUME 95.6 fl (80.0-96.0); PLATELET COUNT, AUTOMATED 247 10^3/uL (150-450); RED BLOOD COUNT 3.87 10^6/uL (4.30-6.10); WHITE BLOOD COUNT 6.1 10^3/uL (4.0-10.0)
[2021-09-29] MEDS: SYMBICORT 80/4.5MCG INHALER 6GM INH SCH ×2 (07:13→19:28)
[2021-09-29] MEDS: TIOTROPIUM INHALER/CAPSULE (SPIRIVA) INH SCH (07:13)
[2021-09-29 07:21] LABS: ALBUMIN 3.1 GM/DL (3.2-5.2); ALT/SGPT 23 U/L (12-78); BILIRUBIN,TOTAL 0.5 MG/DL (0.2-1.0); BLOOD UREA NITROGEN 12 MG/DL (7-18); CALCIUM LEVEL 9.3 MG/DL (8.8-10.2); CARBON DIOXIDE LEVEL 28 MEQ/L (21-32); CHLORIDE LEVEL 104 MEQ/L (98-107); CREATININE FOR GFR 0.62 MG/DL (0.70-1.30); GLOMERULAR FILTRATION RATE > 60.0 (>35); GLUCOSE, FASTING 92 MG/DL (70-100); SODIUM LEVEL 137 MEQ/L (136-145); TOTAL PROTEIN 6.1 GM/DL (6.4-8.2)
[2021-09-29] MEDS: lisinopriL 40MG TAB PO SCH (09:26)
[2021-09-29] MEDS: OYSTER SHELL CALCIUM 500 MG TAB PO SCH ×2 (09:27→20:19)
[2021-09-29] MEDS: QUEtiapine FUMARATE 25 MG TAB PO PRN ×2 (09:27→22:35)
[2021-09-29] MEDS: guaiFENesin ER 600 MG TAB PO SCH ×2 (09:27→20:20)
[2021-09-29] MEDS: FOLIC ACID 1MG TAB PO SCH (09:27)
[2021-09-29] MEDS: MULTIVITAMINS/MINERALS THERAP 1 TAB PO SCH (09:27)
[2021-09-29] MEDS: THIAMINE 100 MG TAB PO SCH (09:27)
[2021-09-29] MEDS: CARVedilol 12.5 MG TAB PO SCH ×2 (09:27→20:25)
[2021-09-29] MEDS: ASPIRIN 81MG ENTERIC TABLET PO SCH (09:27)
[2021-09-29] MEDS: HEPARIN SOD (PORCINE) 5000UNITS/ML 1ML VIAL/SYRINGE SC SCH ×2 (09:28→20:19)
[2021-09-29] MEDS: MIRALAX *UNIT DOSE* 17GM PACKET PO SCH ×2 (09:28→20:20)
[2021-09-29] MEDS: NORCO, ANEXSIA 5/325MG TABLET (HYDROcodone/ACETAMINOPHEN) PO PRN (14:57)
[2021-09-29] MEDS: RAMELTEON 8 MG TAB (ROZEREM) PO PRN (20:23)
[2021-09-30 05:59] VITALS: BP 121/60
[2021-09-30 06:03] LABS: HEMATOCRIT 36.2 % (42.0-52.0); HEMOGLOBIN 12.5 g/dl (13.5-17.5); MEAN CORPUSCULAR HEMOGLOBIN 32.6 pg (27.0-33.0); MEAN CORPUSCULAR HGB CONC 34.5 g/dl (32.0-36.5); MEAN CORPUSCULAR VOLUME 94.3 fl (80.0-96.0); PLATELET COUNT, AUTOMATED 224 10^3/uL (150-450); RED BLOOD COUNT 3.84 10^6/uL (4.30-6.10); WHITE BLOOD COUNT 5.5 10^3/uL (4.0-10.0)
[2021-09-30 06:37] LABS: ALBUMIN 2.9 GM/DL (3.2-5.2); ALT/SGPT 21 U/L (12-78); BILIRUBIN,TOTAL 0.5 MG/DL (0.2-1.0); BLOOD UREA NITROGEN 15 MG/DL (7-18); CALCIUM LEVEL 8.9 MG/DL (8.8-10.2); CARBON DIOXIDE LEVEL 29 MEQ/L (21-32); CHLORIDE LEVEL 104 MEQ/L (98-107); CREATININE FOR GFR 0.63 MG/DL (0.70-1.30); GLOMERULAR FILTRATION RATE > 60.0 (>35); GLUCOSE, FASTING 97 MG/DL (70-100); POTASSIUM SERUM 4.3 MEQ/L (3.5-5.1); SODIUM LEVEL 137 MEQ/L (136-145); TOTAL PROTEIN 5.6 GM/DL (6.4-8.2)
[2021-09-30] MEDS: TIOTROPIUM INHALER/CAPSULE (SPIRIVA) INH SCH (07:44)
[2021-09-30] MEDS: SYMBICORT 80/4.5MCG INHALER 6GM INH SCH ×2 (07:44→19:53)
[2021-09-30] MEDS: MIRALAX *UNIT DOSE* 17GM PACKET PO SCH ×2 (08:44→20:04)
[2021-09-30] MEDS: ASPIRIN 81MG ENTERIC TABLET PO SCH (08:44)
[2021-09-30] MEDS: HEPARIN SOD (PORCINE) 5000UNITS/ML 1ML VIAL/SYRINGE SC SCH ×2 (08:44→20:03)
[2021-09-30] MEDS: MULTIVITAMINS/MINERALS THERAP 1 TAB PO SCH (08:45)
[2021-09-30] MEDS: CARVedilol 12.5 MG TAB PO SCH ×2 (08:45→20:05)
[2021-09-30] MEDS: THIAMINE 100 MG TAB PO SCH (08:45)
[2021-09-30] MEDS: OYSTER SHELL CALCIUM 500 MG TAB PO SCH ×2 (08:45→20:03)
[2021-09-30] MEDS: lisinopriL 40MG TAB PO SCH (08:45)
[2021-09-30] MEDS: FOLIC ACID 1MG TAB PO SCH (08:45)
[2021-09-30] MEDS: guaiFENesin ER 600 MG TAB PO SCH ×2 (08:45→20:04)
[2021-09-30] MEDS: NORCO, ANEXSIA 5/325MG TABLET (HYDROcodone/ACETAMINOPHEN) PO PRN ×2 (12:28→18:24)
[2021-09-30] MEDS: QUEtiapine FUMARATE 25 MG TAB PO PRN ×2 (12:28→20:03)
[2021-09-30] MEDS: ACETAMINOPHEN TAB 650MG DOSE (2X325MG) PO PRN (20:03)
[2021-09-30] MEDS: RAMELTEON 8 MG TAB (ROZEREM) PO PRN (20:03)
[2021-10-01 06:00] VITALS: BP 141/74
[2021-10-01] MEDS: TIOTROPIUM INHALER/CAPSULE (SPIRIVA) INH SCH (08:00)
[2021-10-01] MEDS: SYMBICORT 80/4.5MCG INHALER 6GM INH SCH ×2 (08:00→19:59)
[2021-10-01] MEDS: THIAMINE 100 MG TAB PO SCH (08:21)
[2021-10-01] MEDS: OYSTER SHELL CALCIUM 500 MG TAB PO SCH ×2 (08:21→20:23)
[2021-10-01] MEDS: MULTIVITAMINS/MINERALS THERAP 1 TAB PO SCH (08:21)
[2021-10-01] MEDS: ASPIRIN 81MG ENTERIC TABLET PO SCH (08:21)
[2021-10-01] MEDS: FOLIC ACID 1MG TAB PO SCH (08:21)
[2021-10-01] MEDS: guaiFENesin ER 600 MG TAB PO SCH ×2 (08:22→20:23)
[2021-10-01] MEDS: CARVedilol 12.5 MG TAB PO SCH ×2 (08:22→20:23)
[2021-10-01] MEDS: lisinopriL 40MG TAB PO SCH (08:22)
[2021-10-01] MEDS: HEPARIN SOD (PORCINE) 5000UNITS/ML 1ML VIAL/SYRINGE SC SCH ×2 (08:23→20:23)
[2021-10-01] MEDS: MIRALAX *UNIT DOSE* 17GM PACKET PO SCH ×2 (08:23→20:28)
[2021-10-01] MEDS: ALBUTEROL SULFATE 2.5 MG/0.5 ML INH NEB SOLN INH PRN ×3 (09:12→19:58)
[2021-10-01] MEDS: ACETAMINOPHEN TAB 650MG DOSE (2X325MG) PO PRN (10:34)
[2021-10-01] MEDS: NORCO, ANEXSIA 5/325MG TABLET (HYDROcodone/ACETAMINOPHEN) PO PRN (11:55)
[2021-10-01] MEDS: RAMELTEON 8 MG TAB (ROZEREM) PO PRN (20:23)
[2021-10-01] MEDS: QUEtiapine FUMARATE 25 MG TAB PO PRN (20:23)
[2021-10-02 06:00] VITALS: BP 151/67
[2021-10-02] MEDS: TIOTROPIUM INHALER/CAPSULE (SPIRIVA) INH SCH (07:44)
[2021-10-02] MEDS: SYMBICORT 80/4.5MCG INHALER 6GM INH SCH ×2 (07:44→20:00)
[2021-10-02] MEDS: lisinopriL 40MG TAB PO SCH (08:15)
[2021-10-02] MEDS: guaiFENesin ER 600 MG TAB PO SCH ×2 (08:15→20:14)
[2021-10-02] MEDS: OYSTER SHELL CALCIUM 500 MG TAB PO SCH ×2 (08:15→20:14)
[2021-10-02] MEDS: HEPARIN SOD (PORCINE) 5000UNITS/ML 1ML VIAL/SYRINGE SC SCH ×2 (08:15→20:15)
[2021-10-02] MEDS: FOLIC ACID 1MG TAB PO SCH (08:15)
[2021-10-02] MEDS: QUEtiapine FUMARATE 25 MG TAB PO PRN ×2 (08:15→20:14)
[2021-10-02] MEDS: ASPIRIN 81MG ENTERIC TABLET PO SCH (08:15)
[2021-10-02] MEDS: THIAMINE 100 MG TAB PO SCH (08:15)
[2021-10-02] MEDS: MULTIVITAMINS/MINERALS THERAP 1 TAB PO SCH (08:15)
[2021-10-02] MEDS: CARVedilol 12.5 MG TAB PO SCH ×2 (08:16→20:15)
[2021-10-02] MEDS: MIRALAX *UNIT DOSE* 17GM PACKET PO SCH ×2 (08:18→20:15)
[2021-10-02] MEDS: RAMELTEON 8 MG TAB (ROZEREM) PO PRN (20:13)
[2021-10-03 05:24] VITALS: BP 140/60
[2021-10-03] MEDS: TIOTROPIUM INHALER/CAPSULE (SPIRIVA) INH SCH (08:00)
[2021-10-03] MEDS: SYMBICORT 80/4.5MCG INHALER 6GM INH SCH ×2 (08:00→19:42)
[2021-10-03 08:01] VITALS: BP 125/49
[2021-10-03] MEDS: lisinopriL 40MG TAB PO SCH (08:02)
[2021-10-03] MEDS: MULTIVITAMINS/MINERALS THERAP 1 TAB PO SCH (08:02)
[2021-10-03] MEDS: THIAMINE 100 MG TAB PO SCH (08:02)
[2021-10-03] MEDS: guaiFENesin ER 600 MG TAB PO SCH ×2 (08:02→21:19)
[2021-10-03] MEDS: OYSTER SHELL CALCIUM 500 MG TAB PO SCH ×2 (08:02→21:19)
[2021-10-03] MEDS: FOLIC ACID 1MG TAB PO SCH (08:02)
[2021-10-03] MEDS: ASPIRIN 81MG ENTERIC TABLET PO SCH (08:02)
[2021-10-03] MEDS: HEPARIN SOD (PORCINE) 5000UNITS/ML 1ML VIAL/SYRINGE SC SCH ×2 (08:03→21:00)
[2021-10-03] MEDS: MIRALAX *UNIT DOSE* 17GM PACKET PO SCH ×2 (08:03→21:00)
[2021-10-03] MEDS: CARVedilol 12.5 MG TAB PO SCH ×2 (08:03→21:20)
[2021-10-03] MEDS: QUEtiapine FUMARATE 25 MG TAB PO PRN (13:53)
[2021-10-03] MEDS: NORCO, ANEXSIA 5/325MG TABLET (HYDROcodone/ACETAMINOPHEN) PO PRN (13:53)
[2021-10-03] MEDS: RAMELTEON 8 MG TAB (ROZEREM) PO PRN (21:19)
[2021-10-04] MEDS ORDERED: diphenhydrAMINE 50MG CAP PO ONE (03:00)
[2021-10-04 05:27] VITALS: BP 138/66
[2021-10-04] MEDS: TIOTROPIUM INHALER/CAPSULE (SPIRIVA) INH SCH (07:26)
[2021-10-04] MEDS: SYMBICORT 80/4.5MCG INHALER 6GM INH SCH ×2 (07:26→20:04)
[2021-10-04 07:46] LABS: HEMATOCRIT 38.5 % (42.0-52.0); HEMOGLOBIN 13.3 g/dl (13.5-17.5); MEAN CORPUSCULAR HGB CONC 34.5 g/dl (32.0-36.5); MEAN CORPUSCULAR VOLUME 92.8 fl (80.0-96.0); PLATELET COUNT, AUTOMATED 228 10^3/uL (150-450); RED BLOOD COUNT 4.15 10^6/uL (4.30-6.10); WHITE BLOOD COUNT 7.1 10^3/uL (4.0-10.0)
[2021-10-04 08:27] LABS: ALBUMIN 3.4 GM/DL (3.2-5.2); ALT/SGPT 24 U/L (12-78); BILIRUBIN,TOTAL 0.5 MG/DL (0.2-1.0); BLOOD UREA NITROGEN 10 MG/DL (7-18); CALCIUM LEVEL 9.6 MG/DL (8.8-10.2); CARBON DIOXIDE LEVEL 29 MEQ/L (21-32); CHLORIDE LEVEL 102 MEQ/L (98-107); CREATININE FOR GFR 0.61 MG/DL (0.70-1.30); GLOMERULAR FILTRATION RATE > 60.0 (>35); GLUCOSE, FASTING 96 MG/DL (70-100); SODIUM LEVEL 136 MEQ/L (136-145); TOTAL PROTEIN 6.2 GM/DL (6.4-8.2)
[2021-10-04] MEDS: MIRALAX *UNIT DOSE* 17GM PACKET PO SCH ×3 (09:00→21:00)
[2021-10-04] MEDS: ASPIRIN 81MG ENTERIC TABLET PO SCH (09:43)
[2021-10-04] MEDS: HEPARIN SOD (PORCINE) 5000UNITS/ML 1ML VIAL/SYRINGE SC SCH ×2 (09:43→21:00)
[2021-10-04] MEDS: lisinopriL 40MG TAB PO SCH (09:43)
[2021-10-04] MEDS: guaiFENesin ER 600 MG TAB PO SCH ×2 (09:43→22:17)
[2021-10-04] MEDS: THIAMINE 100 MG TAB PO SCH (09:43)
[2021-10-04] MEDS: FOLIC ACID 1MG TAB PO SCH (09:43)
[2021-10-04] MEDS: OYSTER SHELL CALCIUM 500 MG TAB PO SCH ×2 (09:43→22:17)
[2021-10-04] MEDS: MULTIVITAMINS/MINERALS THERAP 1 TAB PO SCH (09:43)
[2021-10-04] MEDS: CARVedilol 12.5 MG TAB PO SCH ×2 (09:44→22:19)
[2021-10-04] MEDS: QUEtiapine FUMARATE 25 MG TAB PO PRN (14:40)
[2021-10-04] MEDS: RAMELTEON 8 MG TAB (ROZEREM) PO PRN (22:18)
[2021-10-05] MEDS: QUEtiapine FUMARATE 25 MG TAB PO PRN ×2 (00:34→16:00)
[2021-10-05] MEDS: ONDANSETRON 4MG ORAL DISINTEGRATING TAB PO PRN (00:34)
[2021-10-05 05:51] VITALS: BP 124/82
[2021-10-05 07:03] LABS: ALT/SGPT 22 U/L (12-78); BILIRUBIN,TOTAL 0.5 MG/DL (0.2-1.0); BLOOD UREA NITROGEN 10 MG/DL (7-18); CALCIUM LEVEL 9.2 MG/DL (8.8-10.2); CARBON DIOXIDE LEVEL 29 MEQ/L (21-32); CHLORIDE LEVEL 106 MEQ/L (98-107); CREATININE FOR GFR 0.61 MG/DL (0.70-1.30); GLOMERULAR FILTRATION RATE > 60.0 (>35); GLUCOSE, FASTING 93 MG/DL (70-100); POTASSIUM SERUM 4.9 MEQ/L (3.5-5.1); SODIUM LEVEL 140 MEQ/L (136-145); TOTAL PROTEIN 5.8 GM/DL (6.4-8.2)
[2021-10-05] MEDS: TIOTROPIUM INHALER/CAPSULE (SPIRIVA) INH SCH (07:25)
[2021-10-05] MEDS: SYMBICORT 80/4.5MCG INHALER 6GM INH SCH ×2 (07:25→19:46)
[2021-10-05] MEDS: MIRALAX *UNIT DOSE* 17GM PACKET PO SCH ×3 (09:00→21:00)
[2021-10-05] MEDS: MULTIVITAMINS/MINERALS THERAP 1 TAB PO SCH (09:35)
[2021-10-05] MEDS: lisinopriL 40MG TAB PO SCH (09:35)
[2021-10-05] MEDS: FOLIC ACID 1MG TAB PO SCH (09:35)
[2021-10-05] MEDS: OYSTER SHELL CALCIUM 500 MG TAB PO SCH ×2 (09:35→22:51)
[2021-10-05] MEDS: THIAMINE 100 MG TAB PO SCH (09:36)
[2021-10-05] MEDS: HEPARIN SOD (PORCINE) 5000UNITS/ML 1ML VIAL/SYRINGE SC SCH ×2 (09:36→21:00)
[2021-10-05] MEDS: CARVedilol 12.5 MG TAB PO SCH ×2 (09:36→22:52)
[2021-10-05] MEDS: guaiFENesin ER 600 MG TAB PO SCH ×2 (09:36→22:51)
[2021-10-05] MEDS: ASPIRIN 81MG ENTERIC TABLET PO SCH (09:36)
[2021-10-05] MEDS: NORCO, ANEXSIA 5/325MG TABLET (HYDROcodone/ACETAMINOPHEN) PO PRN (16:00)
[2021-10-05] MEDS: RAMELTEON 8 MG TAB (ROZEREM) PO PRN (22:51)
[2021-10-06] MEDS: NORCO, ANEXSIA 5/325MG TABLET (HYDROcodone/ACETAMINOPHEN) PO PRN ×3 (01:21→15:20)
[2021-10-06] MEDS: QUEtiapine FUMARATE 25 MG TAB PO PRN ×2 (01:21→17:57)
[2021-10-06 06:00] VITALS: BP 139/73
[2021-10-06] MEDS: TIOTROPIUM INHALER/CAPSULE (SPIRIVA) INH SCH (07:32)
[2021-10-06] MEDS: SYMBICORT 80/4.5MCG INHALER 6GM INH SCH ×2 (07:32→19:25)
[2021-10-06 08:49] LABS: ALBUMIN 3.1 GM/DL (3.2-5.2); ALT/SGPT 21 U/L (12-78); BILIRUBIN,TOTAL 0.4 MG/DL (0.2-1.0); BLOOD UREA NITROGEN 10 MG/DL (7-18); CALCIUM LEVEL 9.1 MG/DL (8.8-10.2); CARBON DIOXIDE LEVEL 33 MEQ/L (21-32); CHLORIDE LEVEL 103 MEQ/L (98-107); CREATININE FOR GFR 0.65 MG/DL (0.70-1.30); GLOMERULAR FILTRATION RATE > 60.0 (>35); GLUCOSE, FASTING 90 MG/DL (70-100); POTASSIUM SERUM 4.7 MEQ/L (3.5-5.1); SODIUM LEVEL 137 MEQ/L (136-145); TOTAL PROTEIN 6.1 GM/DL (6.4-8.2)
[2021-10-06] MEDS: HEPARIN SOD (PORCINE) 5000UNITS/ML 1ML VIAL/SYRINGE SC SCH ×3 (09:00→20:42)
[2021-10-06] MEDS: MIRALAX *UNIT DOSE* 17GM PACKET PO SCH ×2 (09:15→20:44)
[2021-10-06] MEDS: CARVedilol 12.5 MG TAB PO SCH ×2 (09:16→20:43)
[2021-10-06] MEDS: THIAMINE 100 MG TAB PO SCH (09:16)
[2021-10-06] MEDS: lisinopriL 40MG TAB PO SCH (09:16)
[2021-10-06] MEDS: guaiFENesin ER 600 MG TAB PO SCH ×2 (09:16→20:45)
[2021-10-06] MEDS: OYSTER SHELL CALCIUM 500 MG TAB PO SCH ×2 (09:16→20:42)
[2021-10-06] MEDS: ASPIRIN 81MG ENTERIC TABLET PO SCH (09:16)
[2021-10-06] MEDS: MULTIVITAMINS/MINERALS THERAP 1 TAB PO SCH (09:17)
[2021-10-06] MEDS: FOLIC ACID 1MG TAB PO SCH (09:17)
[2021-10-06] MEDS: ACETAMINOPHEN TAB 650MG DOSE (2X325MG) PO PRN (17:58)
[2021-10-06 18:45] VITALS: BP 122/78
[2021-10-06] MEDS: RAMELTEON 8 MG TAB (ROZEREM) PO PRN (20:42)
[2021-10-06] MEDS: oxyBUTYnin 5 MG TAB PO SCH (20:42)
[2021-10-07] MEDS: NORCO, ANEXSIA 5/325MG TABLET (HYDROcodone/ACETAMINOPHEN) PO PRN ×4 (00:42→22:17)
[2021-10-07] MEDS: QUEtiapine FUMARATE 25 MG TAB PO PRN ×2 (02:21→22:53)
[2021-10-07 06:00] VITALS: BP 151/74
[2021-10-07] MEDS: SYMBICORT 80/4.5MCG INHALER 6GM INH SCH ×2 (06:41→19:53)
[2021-10-07] MEDS: TIOTROPIUM INHALER/CAPSULE (SPIRIVA) INH SCH (06:41)
[2021-10-07] MEDS: HEPARIN SOD (PORCINE) 5000UNITS/ML 1ML VIAL/SYRINGE SC SCH ×2 (09:00→20:22)
[2021-10-07] MEDS: CARVedilol 12.5 MG TAB PO SCH ×2 (09:01→20:24)
[2021-10-07] MEDS: oxyBUTYnin 5 MG TAB PO SCH ×3 (09:01→20:22)
[2021-10-07] MEDS: MIRALAX *UNIT DOSE* 17GM PACKET PO SCH ×2 (09:01→20:21)
[2021-10-07] MEDS: MULTIVITAMINS/MINERALS THERAP 1 TAB PO SCH (09:02)
[2021-10-07] MEDS: FOLIC ACID 1MG TAB PO SCH (09:02)
[2021-10-07] MEDS: lisinopriL 40MG TAB PO SCH (09:02)
[2021-10-07] MEDS: ASPIRIN 81MG ENTERIC TABLET PO SCH (09:02)
[2021-10-07] MEDS: THIAMINE 100 MG TAB PO SCH (09:02)
[2021-10-07] MEDS: guaiFENesin ER 600 MG TAB PO SCH ×2 (09:02→20:21)
[2021-10-07] MEDS: OYSTER SHELL CALCIUM 500 MG TAB PO SCH ×2 (09:02→20:21)
[2021-10-07 09:27] LABS: HEMATOCRIT 40.9 % (42.0-52.0); HEMOGLOBIN 13.8 g/dl (13.5-17.5); MEAN CORPUSCULAR HEMOGLOBIN 32.2 pg (27.0-33.0); MEAN CORPUSCULAR HGB CONC 33.7 g/dl (32.0-36.5); MEAN CORPUSCULAR VOLUME 95.3 fl (80.0-96.0); PLATELET COUNT, AUTOMATED 257 10^3/uL (150-450); RED BLOOD COUNT 4.29 10^6/uL (4.30-6.10)
[2021-10-07 09:56] LABS: ALBUMIN 3.5 GM/DL (3.2-5.2); ALT/SGPT 21 U/L (12-78); BILIRUBIN,TOTAL 0.5 MG/DL (0.2-1.0); BLOOD UREA NITROGEN 12 MG/DL (7-18); CALCIUM LEVEL 9.4 MG/DL (8.8-10.2); CARBON DIOXIDE LEVEL 31 MEQ/L (21-32); CHLORIDE LEVEL 101 MEQ/L (98-107); CREATININE FOR GFR 0.68 MG/DL (0.70-1.30); GLOMERULAR FILTRATION RATE > 60.0 (>35); GLUCOSE, FASTING 112 MG/DL (70-100); POTASSIUM SERUM 4.5 MEQ/L (3.5-5.1); SODIUM LEVEL 137 MEQ/L (136-145); TOTAL PROTEIN 6.6 GM/DL (6.4-8.2)
[2021-10-07 10:35] LABS: APPEARANCE, URINE CLOUDY (CLEAR); BACTERIA, URINE AUTO 2+ (NEGATIVE); BILIRUBIN, URINE AUTO NEGATIVE (NEGATIVE); BLOOD, URINE BLOOD 2+ (NEGATIVE); COLOR, URINE YELLOW (YELLOW); GLUCOSE, URINE (UA) AUTO NEGATIVE (NEGATIVE); KETONE, URINE AUTO NEGATIVE (NEGATIVE); LEUKOCYTE ESTERASE, URINE AUTO 3+ (NEGATIVE); NITRITE, URINE AUTO NEGATIVE (NEGATIVE); PROTEIN, URINE AUTO 1+ mg/dL (NEGATIVE); RBC, URINE AUTO 14 /HPF (0-3); SPECIFIC GRAVITY URINE AUTO 1.009 (1.002-1.035); SQUAMOUS EPITHELIAL CELL UR AU 0 /HPF (0-6); UROBILINOGEN, URINE AUTO 0.2 mg/dL (0.0-2.0); WBC, URINE AUTO TNTC /HPF (0-3)
[2021-10-07] MEDS: RAMELTEON 8 MG TAB (ROZEREM) PO PRN (20:21)
[2021-10-07] MEDS: CEFUROXIME 500 MG TAB PO SCH (20:22)
[2021-10-08 06:10] VITALS: BP 135/65
[2021-10-08 07:06] LABS: ALBUMIN 3.2 GM/DL (3.2-5.2); ALT/SGPT 19 U/L (12-78); BILIRUBIN,TOTAL 0.7 MG/DL (0.2-1.0); BLOOD UREA NITROGEN 13 MG/DL (7-18); CALCIUM LEVEL 9.7 MG/DL (8.8-10.2); CARBON DIOXIDE LEVEL 29 MEQ/L (21-32); CHLORIDE LEVEL 103 MEQ/L (98-107); CREATININE FOR GFR 0.64 MG/DL (0.70-1.30); GLOMERULAR FILTRATION RATE > 60.0 (>35); GLUCOSE, FASTING 89 MG/DL (70-100); POTASSIUM SERUM 4.5 MEQ/L (3.5-5.1); SODIUM LEVEL 138 MEQ/L (136-145); TOTAL PROTEIN 6.1 GM/DL (6.4-8.2)
[2021-10-08] MEDS: TIOTROPIUM INHALER/CAPSULE (SPIRIVA) INH SCH (07:30)
[2021-10-08] MEDS: SYMBICORT 80/4.5MCG INHALER 6GM INH SCH ×2 (07:31→19:38)
[2021-10-08] MEDS: CARVedilol 12.5 MG TAB PO SCH ×2 (09:00→20:11)
[2021-10-08] MEDS: HEPARIN SOD (PORCINE) 5000UNITS/ML 1ML VIAL/SYRINGE SC SCH ×2 (09:12→20:10)
[2021-10-08] MEDS: ASPIRIN 81MG ENTERIC TABLET PO SCH (09:12)
[2021-10-08] MEDS: MIRALAX *UNIT DOSE* 17GM PACKET PO SCH ×2 (09:12→20:09)
[2021-10-08] MEDS: OYSTER SHELL CALCIUM 500 MG TAB PO SCH ×2 (09:13→20:11)
[2021-10-08] MEDS: THIAMINE 100 MG TAB PO SCH (09:14)
[2021-10-08] MEDS: CEFUROXIME 500 MG TAB PO SCH ×2 (09:14→20:10)
[2021-10-08] MEDS: MULTIVITAMINS/MINERALS THERAP 1 TAB PO SCH (09:14)
[2021-10-08] MEDS: FOLIC ACID 1MG TAB PO SCH (09:14)
[2021-10-08] MEDS: oxyBUTYnin 5 MG TAB PO SCH ×3 (09:14→20:10)
[2021-10-08] MEDS: guaiFENesin ER 600 MG TAB PO SCH ×2 (09:15→20:11)
[2021-10-08] MEDS: NORCO, ANEXSIA 5/325MG TABLET (HYDROcodone/ACETAMINOPHEN) PO PRN ×2 (09:16→22:54)
[2021-10-08] MEDS: lisinopriL 40MG TAB PO SCH (09:16)
[2021-10-08] MEDS: RAMELTEON 8 MG TAB (ROZEREM) PO PRN (20:38)
[2021-10-09] MEDS: NORCO, ANEXSIA 5/325MG TABLET (HYDROcodone/ACETAMINOPHEN) PO PRN ×2 (04:49→22:10)
[2021-10-09 06:00] VITALS: BP 150/72
[2021-10-09 06:55] LABS: ALBUMIN 3.5 GM/DL (3.2-5.2); ALT/SGPT 22 U/L (12-78); BILIRUBIN,TOTAL 0.9 MG/DL (0.2-1.0); BLOOD UREA NITROGEN 14 MG/DL (7-18); CALCIUM LEVEL 9.3 MG/DL (8.8-10.2); CARBON DIOXIDE LEVEL 30 MEQ/L (21-32); CHLORIDE LEVEL 98 MEQ/L (98-107); CREATININE FOR GFR 0.63 MG/DL (0.70-1.30); GLOMERULAR FILTRATION RATE > 60.0 (>35); GLUCOSE, FASTING 104 MG/DL (70-100); POTASSIUM SERUM 4.1 MEQ/L (3.5-5.1); SODIUM LEVEL 132 MEQ/L (136-145); TOTAL PROTEIN 6.5 GM/DL (6.4-8.2)
[2021-10-09] MEDS: TIOTROPIUM INHALER/CAPSULE (SPIRIVA) INH SCH (07:27)
[2021-10-09] MEDS: SYMBICORT 80/4.5MCG INHALER 6GM INH SCH ×2 (07:27→19:28)
[2021-10-09] MEDS: HEPARIN SOD (PORCINE) 5000UNITS/ML 1ML VIAL/SYRINGE SC SCH ×2 (08:52→19:46)
[2021-10-09] MEDS: MIRALAX *UNIT DOSE* 17GM PACKET PO SCH ×2 (08:52→19:48)
[2021-10-09] MEDS: ASPIRIN 81MG ENTERIC TABLET PO SCH (08:53)
[2021-10-09] MEDS: oxyBUTYnin 5 MG TAB PO SCH ×3 (08:53→19:46)
[2021-10-09] MEDS: guaiFENesin ER 600 MG TAB PO SCH ×2 (08:54→19:46)
[2021-10-09] MEDS: lisinopriL 40MG TAB PO SCH (08:54)
[2021-10-09] MEDS: CEFUROXIME 500 MG TAB PO SCH ×2 (08:54→19:47)
[2021-10-09] MEDS: FOLIC ACID 1MG TAB PO SCH (08:54)
[2021-10-09] MEDS: THIAMINE 100 MG TAB PO SCH (08:54)
[2021-10-09] MEDS: CARVedilol 12.5 MG TAB PO SCH ×2 (08:54→19:47)
[2021-10-09] MEDS: MULTIVITAMINS/MINERALS THERAP 1 TAB PO SCH (08:54)
[2021-10-09] MEDS: OYSTER SHELL CALCIUM 500 MG TAB PO SCH ×2 (08:55→19:47)
[2021-10-09] MEDS: RAMELTEON 8 MG TAB (ROZEREM) PO PRN (19:47)
[2021-10-10 06:00] VITALS: BP 142/72
[2021-10-10 06:16] LABS: HEMATOCRIT 35.7 % (42.0-52.0); HEMOGLOBIN 12.6 g/dl (13.5-17.5); MEAN CORPUSCULAR HEMOGLOBIN 32.4 pg (27.0-33.0); MEAN CORPUSCULAR HGB CONC 35.3 g/dl (32.0-36.5); MEAN CORPUSCULAR VOLUME 91.8 fl (80.0-96.0); PLATELET COUNT, AUTOMATED 198 10^3/uL (150-450); RED BLOOD COUNT 3.89 10^6/uL (4.30-6.10); WHITE BLOOD COUNT 5.1 10^3/uL (4.0-10.0)
[2021-10-10 06:45] LABS: ALBUMIN 3.2 GM/DL (3.2-5.2); ALT/SGPT 20 U/L (12-78); BILIRUBIN,TOTAL 0.8 MG/DL (0.2-1.0); BLOOD UREA NITROGEN 12 MG/DL (7-18); CALCIUM LEVEL 9.3 MG/DL (8.8-10.2); CARBON DIOXIDE LEVEL 32 MEQ/L (21-32); CHLORIDE LEVEL 99 MEQ/L (98-107); CREATININE FOR GFR 0.62 MG/DL (0.70-1.30); GLOMERULAR FILTRATION RATE > 60.0 (>35); GLUCOSE, FASTING 95 MG/DL (70-100); POTASSIUM SERUM 4.4 MEQ/L (3.5-5.1); SODIUM LEVEL 134 MEQ/L (136-145); TOTAL PROTEIN 6.1 GM/DL (6.4-8.2)
[2021-10-10] MEDS: SYMBICORT 80/4.5MCG INHALER 6GM INH SCH ×2 (07:45→19:18)
[2021-10-10] MEDS: TIOTROPIUM INHALER/CAPSULE (SPIRIVA) INH SCH (07:46)
[2021-10-10] MEDS: THIAMINE 100 MG TAB PO SCH (08:07)
[2021-10-10] MEDS: lisinopriL 40MG TAB PO SCH (08:07)
[2021-10-10] MEDS: CARVedilol 12.5 MG TAB PO SCH ×2 (08:07→20:14)
[2021-10-10] MEDS: OYSTER SHELL CALCIUM 500 MG TAB PO SCH ×2 (08:07→20:15)
[2021-10-10] MEDS: guaiFENesin ER 600 MG TAB PO SCH ×2 (08:07→20:14)
[2021-10-10] MEDS: MIRALAX *UNIT DOSE* 17GM PACKET PO SCH ×2 (08:07→20:15)
[2021-10-10] MEDS: MULTIVITAMINS/MINERALS THERAP 1 TAB PO SCH (08:07)
[2021-10-10] MEDS: HEPARIN SOD (PORCINE) 5000UNITS/ML 1ML VIAL/SYRINGE SC SCH ×3 (08:07→20:17)
[2021-10-10] MEDS: FOLIC ACID 1MG TAB PO SCH (08:08)
[2021-10-10] MEDS: oxyBUTYnin 5 MG TAB PO SCH ×3 (08:08→20:15)
[2021-10-10] MEDS: ASPIRIN 81MG ENTERIC TABLET PO SCH (08:08)
[2021-10-10] MEDS: CEFUROXIME 500 MG TAB PO SCH ×2 (08:08→20:14)
[2021-10-10] MEDS: ACETAMINOPHEN TAB 650MG DOSE (2X325MG) PO PRN (14:55)
[2021-10-10] MEDS: RAMELTEON 8 MG TAB (ROZEREM) PO PRN (20:14)
[2021-10-11] MEDS ORDERED: PILL CUTTER 1 EACH XX PRN (02:05)
[2021-10-11] MEDS: OXYMETAZOLINE 0.05% NASAL SPRAY (AFRIN) PRN (02:40)
[2021-10-11 05:39] VITALS: BP 142/63
[2021-10-11 06:52] LABS: ALT/SGPT 19 U/L (12-78); BILIRUBIN,TOTAL 0.4 MG/DL (0.2-1.0); BLOOD UREA NITROGEN 11 MG/DL (7-18); CARBON DIOXIDE LEVEL 30 MEQ/L (21-32); CHLORIDE LEVEL 100 MEQ/L (98-107); CREATININE FOR GFR 0.66 MG/DL (0.70-1.30); GLOMERULAR FILTRATION RATE > 60.0 (>35); GLUCOSE, FASTING 120 MG/DL (70-100); SODIUM LEVEL 135 MEQ/L (136-145); TOTAL PROTEIN 5.6 GM/DL (6.4-8.2)
[2021-10-11] MEDS: SYMBICORT 80/4.5MCG INHALER 6GM INH SCH ×2 (07:35→20:00)
[2021-10-11] MEDS: TIOTROPIUM INHALER/CAPSULE (SPIRIVA) INH SCH (07:35)
[2021-10-11] MEDS: MIRALAX *UNIT DOSE* 17GM PACKET PO SCH ×2 (09:00→20:03)
[2021-10-11] MEDS: FOLIC ACID 1MG TAB PO SCH (09:27)
[2021-10-11] MEDS: OYSTER SHELL CALCIUM 500 MG TAB PO SCH ×2 (09:27→20:00)
[2021-10-11] MEDS: oxyBUTYnin 5 MG TAB PO SCH ×3 (09:27→20:01)
[2021-10-11] MEDS: ASPIRIN 81MG ENTERIC TABLET PO SCH (09:27)
[2021-10-11] MEDS: QUEtiapine FUMARATE 25 MG TAB PO PRN ×2 (09:27→20:00)
[2021-10-11] MEDS: MULTIVITAMINS/MINERALS THERAP 1 TAB PO SCH (09:27)
[2021-10-11] MEDS: CETIRIZINE (ZyrTEC) 10 MG TAB PO SCH (09:27)
[2021-10-11] MEDS: guaiFENesin ER 600 MG TAB PO SCH ×2 (09:27→20:00)
[2021-10-11] MEDS: CEFUROXIME 500 MG TAB PO SCH ×2 (09:27→20:00)
[2021-10-11] MEDS: THIAMINE 100 MG TAB PO SCH (09:27)
[2021-10-11] MEDS: HEPARIN SOD (PORCINE) 5000UNITS/ML 1ML VIAL/SYRINGE SC SCH ×2 (09:28→20:03)
[2021-10-11] MEDS: CARVedilol 12.5 MG TAB PO SCH ×2 (09:28→20:00)
[2021-10-11] MEDS: lisinopriL 40MG TAB PO SCH (09:28)
[2021-10-11] MEDS: RAMELTEON 8 MG TAB (ROZEREM) PO PRN (20:00)
[2021-10-12] MEDS: OXYMETAZOLINE 0.05% NASAL SPRAY (AFRIN) PRN (01:02)
[2021-10-12 06:00] VITALS: BP 156/87
[2021-10-12] MEDS: SYMBICORT 80/4.5MCG INHALER 6GM INH SCH ×2 (07:52→20:00)
[2021-10-12] MEDS: HEPARIN SOD (PORCINE) 5000UNITS/ML 1ML VIAL/SYRINGE SC SCH ×3 (08:22→21:05)
[2021-10-12] MEDS: MIRALAX *UNIT DOSE* 17GM PACKET PO SCH ×2 (08:22→21:00)
[2021-10-12] MEDS: CETIRIZINE (ZyrTEC) 10 MG TAB PO SCH (08:23)
[2021-10-12] MEDS: FOLIC ACID 1MG TAB PO SCH (08:23)
[2021-10-12] MEDS: ASPIRIN 81MG ENTERIC TABLET PO SCH (08:23)
[2021-10-12] MEDS: guaiFENesin ER 600 MG TAB PO SCH ×2 (08:23→21:05)
[2021-10-12] MEDS: THIAMINE 100 MG TAB PO SCH (08:23)
[2021-10-12] MEDS: OYSTER SHELL CALCIUM 500 MG TAB PO SCH ×2 (08:23→21:06)
[2021-10-12] MEDS: oxyBUTYnin 5 MG TAB PO SCH ×3 (08:23→21:05)
[2021-10-12] MEDS: CEFUROXIME 500 MG TAB PO SCH ×2 (08:23→21:07)
[2021-10-12] MEDS: lisinopriL 40MG TAB PO SCH (08:23)
[2021-10-12] MEDS: MULTIVITAMINS/MINERALS THERAP 1 TAB PO SCH (08:23)
[2021-10-12] MEDS: CARVedilol 12.5 MG TAB PO SCH ×2 (08:23→21:06)
[2021-10-12] MEDS: TIOTROPIUM INHALER/CAPSULE (SPIRIVA) INH SCH (11:03)
[2021-10-12] MEDS: RAMELTEON 8 MG TAB (ROZEREM) PO PRN (21:08)
[2021-10-13] MEDS: QUEtiapine FUMARATE 25 MG TAB PO PRN (00:15)
[2021-10-13 04:13] VITALS: BP 148/84
[2021-10-13] MEDS: TIOTROPIUM INHALER/CAPSULE (SPIRIVA) INH SCH (08:00)
[2021-10-13] MEDS: SYMBICORT 80/4.5MCG INHALER 6GM INH SCH ×2 (08:00→19:12)
[2021-10-13] MEDS: MIRALAX *UNIT DOSE* 17GM PACKET PO SCH ×3 (08:36→21:46)
[2021-10-13] MEDS: ASPIRIN 81MG ENTERIC TABLET PO SCH (08:36)
[2021-10-13] MEDS: THIAMINE 100 MG TAB PO SCH (08:37)
[2021-10-13] MEDS: OYSTER SHELL CALCIUM 500 MG TAB PO SCH ×2 (08:37→21:47)
[2021-10-13] MEDS: MULTIVITAMINS/MINERALS THERAP 1 TAB PO SCH (08:37)
[2021-10-13] MEDS: FOLIC ACID 1MG TAB PO SCH (08:37)
[2021-10-13] MEDS: CEFUROXIME 500 MG TAB PO SCH ×2 (08:37→21:47)
[2021-10-13] MEDS: CETIRIZINE (ZyrTEC) 10 MG TAB PO SCH (08:37)
[2021-10-13] MEDS: oxyBUTYnin 5 MG TAB PO SCH ×3 (08:38→21:47)
[2021-10-13] MEDS: CARVedilol 12.5 MG TAB PO SCH ×2 (08:38→21:48)
[2021-10-13] MEDS: lisinopriL 40MG TAB PO SCH (08:38)
[2021-10-13] MEDS: guaiFENesin ER 600 MG TAB PO SCH ×2 (08:38→21:47)
[2021-10-13] MEDS: HEPARIN SOD (PORCINE) 5000UNITS/ML 1ML VIAL/SYRINGE SC SCH ×2 (08:39→21:50)
[2021-10-13 09:00] VITALS: BP 161/81
[2021-10-13] MEDS: RAMELTEON 8 MG TAB (ROZEREM) PO PRN (21:47)
[2021-10-14] MEDS: QUEtiapine FUMARATE 25 MG TAB PO PRN ×2 (00:05→23:23)
[2021-10-14 05:08] VITALS: BP 188/84
[2021-10-14] MEDS: CARVedilol 12.5 MG TAB PO SCH ×2 (05:25→20:21)
[2021-10-14] MEDS: lisinopriL 40MG TAB PO SCH (05:26)
[2021-10-14 06:00] VITALS: BP 187/84
[2021-10-14 07:06] VITALS: BP 186/80
[2021-10-14] MEDS: SYMBICORT 80/4.5MCG INHALER 6GM INH SCH ×2 (07:28→20:01)
[2021-10-14] MEDS: TIOTROPIUM INHALER/CAPSULE (SPIRIVA) INH SCH (07:28)
[2021-10-14] MEDS: ASPIRIN 81MG ENTERIC TABLET PO SCH (08:15)
[2021-10-14] MEDS: CEFUROXIME 500 MG TAB PO SCH ×2 (08:15→20:19)
[2021-10-14] MEDS: MULTIVITAMINS/MINERALS THERAP 1 TAB PO SCH (08:16)
[2021-10-14] MEDS: guaiFENesin ER 600 MG TAB PO SCH ×2 (08:16→20:19)
[2021-10-14] MEDS: CETIRIZINE (ZyrTEC) 10 MG TAB PO SCH (08:16)
[2021-10-14] MEDS: OYSTER SHELL CALCIUM 500 MG TAB PO SCH ×2 (08:16→20:19)
[2021-10-14] MEDS: oxyBUTYnin 5 MG TAB PO SCH ×3 (08:16→20:19)
[2021-10-14] MEDS: FOLIC ACID 1MG TAB PO SCH (08:16)
[2021-10-14] MEDS: MIRALAX *UNIT DOSE* 17GM PACKET PO SCH ×2 (08:17→20:20)
[2021-10-14] MEDS: HEPARIN SOD (PORCINE) 5000UNITS/ML 1ML VIAL/SYRINGE SC SCH ×2 (08:19→20:20)
[2021-10-14] MEDS: THIAMINE 100 MG TAB PO SCH (08:19)
[2021-10-14 08:30] VITALS: BP 155/73
[2021-10-14] MEDS: RAMELTEON 8 MG TAB (ROZEREM) PO PRN (20:19)
[2021-10-15 06:39] VITALS: BP 160/77
[2021-10-15] MEDS: SYMBICORT 80/4.5MCG INHALER 6GM INH SCH ×2 (07:43→19:53)
[2021-10-15] MEDS: TIOTROPIUM INHALER/CAPSULE (SPIRIVA) INH SCH (07:43)
[2021-10-15] MEDS: MIRALAX *UNIT DOSE* 17GM PACKET PO SCH ×2 (09:00→19:49)
[2021-10-15] MEDS: FOLIC ACID 1MG TAB PO SCH (09:54)
[2021-10-15] MEDS: ASPIRIN 81MG ENTERIC TABLET PO SCH (09:54)
[2021-10-15] MEDS: guaiFENesin ER 600 MG TAB PO SCH ×2 (09:54→19:49)
[2021-10-15] MEDS: CARVedilol 12.5 MG TAB PO SCH ×2 (09:55→19:48)
[2021-10-15] MEDS: CETIRIZINE (ZyrTEC) 10 MG TAB PO SCH (09:55)
[2021-10-15] MEDS: CEFUROXIME 500 MG TAB PO SCH ×2 (09:56→19:48)
[2021-10-15] MEDS: OYSTER SHELL CALCIUM 500 MG TAB PO SCH ×2 (09:56→19:48)
[2021-10-15] MEDS: lisinopriL 40MG TAB PO SCH (09:56)
[2021-10-15] MEDS: HEPARIN SOD (PORCINE) 5000UNITS/ML 1ML VIAL/SYRINGE SC SCH ×2 (09:56→19:49)
[2021-10-15] MEDS: THIAMINE 100 MG TAB PO SCH (09:56)
[2021-10-15] MEDS: MULTIVITAMINS/MINERALS THERAP 1 TAB PO SCH (09:56)
[2021-10-15] MEDS: oxyBUTYnin 5 MG TAB PO SCH ×3 (09:56→19:49)
[2021-10-15] MEDS: NORCO, ANEXSIA 5/325MG TABLET (HYDROcodone/ACETAMINOPHEN) PO PRN (10:00)
[2021-10-15 14:00] VITALS: BP 114/67
[2021-10-15] MEDS: RAMELTEON 8 MG TAB (ROZEREM) PO PRN (19:48)
[2021-10-16] MEDS: QUEtiapine FUMARATE 25 MG TAB PO PRN (02:56)
[2021-10-16 05:45] VITALS: BP_SYST 153; BP_SYST 160; BP_DIAS 101; BP_DIAS 76
[2021-10-16] MEDS: SYMBICORT 80/4.5MCG INHALER 6GM INH SCH ×2 (07:18→19:50)
[2021-10-16] MEDS: TIOTROPIUM INHALER/CAPSULE (SPIRIVA) INH SCH (07:18)
[2021-10-16] MEDS: HEPARIN SOD (PORCINE) 5000UNITS/ML 1ML VIAL/SYRINGE SC SCH ×2 (08:07→20:46)
[2021-10-16] MEDS: CEFUROXIME 500 MG TAB PO SCH (08:08)
[2021-10-16] MEDS: OYSTER SHELL CALCIUM 500 MG TAB PO SCH ×2 (08:08→20:46)
[2021-10-16] MEDS: lisinopriL 40MG TAB PO SCH (08:08)
[2021-10-16] MEDS: oxyBUTYnin 5 MG TAB PO SCH ×3 (08:08→20:46)
[2021-10-16] MEDS: ASPIRIN 81MG ENTERIC TABLET PO SCH (08:08)
[2021-10-16] MEDS: FOLIC ACID 1MG TAB PO SCH (08:08)
[2021-10-16] MEDS: THIAMINE 100 MG TAB PO SCH (08:08)
[2021-10-16] MEDS: CETIRIZINE (ZyrTEC) 10 MG TAB PO SCH (08:08)
[2021-10-16] MEDS: MULTIVITAMINS/MINERALS THERAP 1 TAB PO SCH (08:08)
[2021-10-16] MEDS: guaiFENesin ER 600 MG TAB PO SCH ×2 (08:09→20:47)
[2021-10-16] MEDS: CARVedilol 12.5 MG TAB PO SCH (08:09)
[2021-10-16] MEDS: NORCO, ANEXSIA 5/325MG TABLET (HYDROcodone/ACETAMINOPHEN) PO PRN (08:10)
[2021-10-16] MEDS: MIRALAX *UNIT DOSE* 17GM PACKET PO SCH ×2 (09:00→20:47)
[2021-10-16 12:15] VITALS: BP 92/50
[2021-10-16 12:49] LABS: HEMATOCRIT 37.6 % (42.0-52.0); HEMOGLOBIN 12.8 g/dl (13.5-17.5); MEAN CORPUSCULAR HEMOGLOBIN 32.7 pg (27.0-33.0); MEAN CORPUSCULAR VOLUME 96.2 fl (80.0-96.0); PLATELET COUNT, AUTOMATED 205 10^3/uL (150-450); RED BLOOD COUNT 3.91 10^6/uL (4.30-6.10); WHITE BLOOD COUNT 6.2 10^3/uL (4.0-10.0)
[2021-10-16 13:17] LABS: BLOOD UREA NITROGEN 15 MG/DL (7-18); CALCIUM LEVEL 9.2 MG/DL (8.8-10.2); CARBON DIOXIDE LEVEL 30 MEQ/L (21-32); CHLORIDE LEVEL 99 MEQ/L (98-107); CREATININE FOR GFR 0.71 MG/DL (0.70-1.30); GLOMERULAR FILTRATION RATE > 60.0 (>35); GLUCOSE, FASTING 116 MG/DL (70-100); MAGNESIUM LEVEL 1.9 MG/DL (1.8-2.4); POTASSIUM SERUM 4.3 MEQ/L (3.5-5.1); SODIUM LEVEL 134 MEQ/L (136-145)
[2021-10-16] MEDS: LevoFLOXacin 750 MG TABLET PO SCH (17:34)
[2021-10-16 18:00] VITALS: BP 137/64
[2021-10-16] MEDS: RAMELTEON 8 MG TAB (ROZEREM) PO PRN (20:54)
[2021-10-17] MEDS ORDERED: hydrOXYzine 50 MG TAB PO ONE (02:15)
[2021-10-17 05:17] VITALS: BP 138/71
[2021-10-17] MEDS: TIOTROPIUM INHALER/CAPSULE (SPIRIVA) INH SCH (07:37)
[2021-10-17] MEDS: SYMBICORT 80/4.5MCG INHALER 6GM INH SCH ×2 (07:37→19:39)
[2021-10-17] MEDS: MIRALAX *UNIT DOSE* 17GM PACKET PO SCH ×2 (09:00→22:25)
[2021-10-17] MEDS: guaiFENesin ER 600 MG TAB PO SCH ×2 (09:33→22:25)
[2021-10-17] MEDS: OYSTER SHELL CALCIUM 500 MG TAB PO SCH ×2 (09:33→22:24)
[2021-10-17] MEDS: oxyBUTYnin 5 MG TAB PO SCH ×3 (09:33→22:24)
[2021-10-17] MEDS: THIAMINE 100 MG TAB PO SCH (09:33)
[2021-10-17] MEDS: FOLIC ACID 1MG TAB PO SCH (09:34)
[2021-10-17] MEDS: HEPARIN SOD (PORCINE) 5000UNITS/ML 1ML VIAL/SYRINGE SC SCH ×2 (09:34→22:24)
[2021-10-17] MEDS: NORCO, ANEXSIA 5/325MG TABLET (HYDROcodone/ACETAMINOPHEN) PO PRN (09:34)
[2021-10-17] MEDS: MULTIVITAMINS/MINERALS THERAP 1 TAB PO SCH (09:34)
[2021-10-17] MEDS: CETIRIZINE (ZyrTEC) 10 MG TAB PO SCH (09:34)
[2021-10-17] MEDS: ASPIRIN 81MG ENTERIC TABLET PO SCH (09:34)
[2021-10-17] MEDS: LevoFLOXacin 750 MG TABLET PO SCH (17:41)
[2021-10-17] MEDS: RAMELTEON 8 MG TAB (ROZEREM) PO PRN (22:24)
[2021-10-18 06:00] VITALS: BP 157/76
[2021-10-18] MEDS: SYMBICORT 80/4.5MCG INHALER 6GM INH SCH ×2 (07:36→19:40)
[2021-10-18] MEDS: TIOTROPIUM INHALER/CAPSULE (SPIRIVA) INH SCH (07:36)
[2021-10-18] MEDS: HEPARIN SOD (PORCINE) 5000UNITS/ML 1ML VIAL/SYRINGE SC SCH ×2 (08:12→20:00)
[2021-10-18] MEDS: guaiFENesin ER 600 MG TAB PO SCH ×2 (08:12→20:00)
[2021-10-18] MEDS: MIRALAX *UNIT DOSE* 17GM PACKET PO SCH ×2 (08:12→19:58)
[2021-10-18] MEDS: oxyBUTYnin 5 MG TAB PO SCH ×3 (08:13→20:00)
[2021-10-18] MEDS: OYSTER SHELL CALCIUM 500 MG TAB PO SCH ×2 (08:13→20:01)
[2021-10-18] MEDS: MULTIVITAMINS/MINERALS THERAP 1 TAB PO SCH (08:13)
[2021-10-18] MEDS: FOLIC ACID 1MG TAB PO SCH (08:13)
[2021-10-18] MEDS: THIAMINE 100 MG TAB PO SCH (08:13)
[2021-10-18] MEDS: ASPIRIN 81MG ENTERIC TABLET PO SCH (08:14)
[2021-10-18] MEDS: CETIRIZINE (ZyrTEC) 10 MG TAB PO SCH (08:14)
[2021-10-18] MEDS: LevoFLOXacin 750 MG TABLET PO SCH (17:06)
[2021-10-18] MEDS: RAMELTEON 8 MG TAB (ROZEREM) PO PRN (20:00)
[2021-10-19 05:27] VITALS: BP 155/70
[2021-10-19] MEDS: SYMBICORT 80/4.5MCG INHALER 6GM INH SCH ×2 (07:22→20:01)
[2021-10-19] MEDS: TIOTROPIUM INHALER/CAPSULE (SPIRIVA) INH SCH (07:22)
[2021-10-19] MEDS: HEPARIN SOD (PORCINE) 5000UNITS/ML 1ML VIAL/SYRINGE SC SCH ×2 (08:07→20:40)
[2021-10-19] MEDS: MIRALAX *UNIT DOSE* 17GM PACKET PO SCH ×2 (08:07→20:40)
[2021-10-19] MEDS: ASPIRIN 81MG ENTERIC TABLET PO SCH (08:07)
[2021-10-19] MEDS: FOLIC ACID 1MG TAB PO SCH (08:07)
[2021-10-19] MEDS: guaiFENesin ER 600 MG TAB PO SCH ×2 (08:08→20:40)
[2021-10-19] MEDS: oxyBUTYnin 5 MG TAB PO SCH ×3 (08:08→20:40)
[2021-10-19] MEDS: MULTIVITAMINS/MINERALS THERAP 1 TAB PO SCH (08:08)
[2021-10-19] MEDS: CETIRIZINE (ZyrTEC) 10 MG TAB PO SCH (08:08)
[2021-10-19] MEDS: THIAMINE 100 MG TAB PO SCH (08:08)
[2021-10-19] MEDS: OYSTER SHELL CALCIUM 500 MG TAB PO SCH ×2 (08:08→20:40)
[2021-10-19 08:55] VITALS: BP 160/74
[2021-10-19] MEDS: LevoFLOXacin 750 MG TABLET PO SCH (17:48)
[2021-10-19] MEDS: RAMELTEON 8 MG TAB (ROZEREM) PO PRN (20:40)
[2021-10-20 06:00] VITALS: BP 144/66
[2021-10-20] MEDS: SYMBICORT 80/4.5MCG INHALER 6GM INH SCH ×2 (07:27→19:38)
[2021-10-20] MEDS: TIOTROPIUM INHALER/CAPSULE (SPIRIVA) INH SCH (07:27)
[2021-10-20] MEDS: THIAMINE 100 MG TAB PO SCH (08:52)
[2021-10-20] MEDS: ASPIRIN 81MG ENTERIC TABLET PO SCH (08:52)
[2021-10-20] MEDS: CETIRIZINE (ZyrTEC) 10 MG TAB PO SCH (08:52)
[2021-10-20] MEDS: OYSTER SHELL CALCIUM 500 MG TAB PO SCH ×2 (08:52→20:35)
[2021-10-20] MEDS: oxyBUTYnin 5 MG TAB PO SCH ×3 (08:52→20:35)
[2021-10-20] MEDS: guaiFENesin ER 600 MG TAB PO SCH ×2 (08:53→20:35)
[2021-10-20] MEDS: FOLIC ACID 1MG TAB PO SCH (08:53)
[2021-10-20] MEDS: MULTIVITAMINS/MINERALS THERAP 1 TAB PO SCH (08:53)
[2021-10-20] MEDS: MIRALAX *UNIT DOSE* 17GM PACKET PO SCH ×2 (08:54→20:32)
[2021-10-20] MEDS: HEPARIN SOD (PORCINE) 5000UNITS/ML 1ML VIAL/SYRINGE SC SCH ×2 (08:56→20:34)
[2021-10-20] MEDS: LevoFLOXacin 750 MG TABLET PO SCH (17:11)
[2021-10-20] MEDS: RAMELTEON 8 MG TAB (ROZEREM) PO PRN (20:35)
[2021-10-21] MEDS: ACETAMINOPHEN TAB 650MG DOSE (2X325MG) PO PRN (02:09)
[2021-10-21 06:00] VITALS: BP 145/60
[2021-10-21] MEDS: TIOTROPIUM INHALER/CAPSULE (SPIRIVA) INH SCH (07:03)
[2021-10-21] MEDS: SYMBICORT 80/4.5MCG INHALER 6GM INH SCH ×2 (07:03→19:30)
[2021-10-21] MEDS: MIRALAX *UNIT DOSE* 17GM PACKET PO SCH ×2 (08:11→20:43)
[2021-10-21] MEDS: MULTIVITAMINS/MINERALS THERAP 1 TAB PO SCH (08:12)
[2021-10-21] MEDS: guaiFENesin ER 600 MG TAB PO SCH ×2 (08:12→20:42)
[2021-10-21] MEDS: FOLIC ACID 1MG TAB PO SCH (08:12)
[2021-10-21] MEDS: ASPIRIN 81MG ENTERIC TABLET PO SCH (08:12)
[2021-10-21] MEDS: THIAMINE 100 MG TAB PO SCH (08:12)
[2021-10-21] MEDS: CETIRIZINE (ZyrTEC) 10 MG TAB PO SCH (08:12)
[2021-10-21] MEDS: OYSTER SHELL CALCIUM 500 MG TAB PO SCH ×2 (08:12→20:42)
[2021-10-21] MEDS: HEPARIN SOD (PORCINE) 5000UNITS/ML 1ML VIAL/SYRINGE SC SCH ×2 (08:12→20:43)
[2021-10-21] MEDS: oxyBUTYnin 5 MG TAB PO SCH ×3 (08:12→20:42)
[2021-10-21] MEDS: LevoFLOXacin 750 MG TABLET PO SCH (18:11)
[2021-10-22] MEDS: RAMELTEON 8 MG TAB (ROZEREM) PO PRN ×2 (00:05→20:56)
[2021-10-22 04:00] VITALS: BP 152/77
[2021-10-22] MEDS: SYMBICORT 80/4.5MCG INHALER 6GM INH SCH ×2 (08:00→19:34)
[2021-10-22] MEDS: TIOTROPIUM INHALER/CAPSULE (SPIRIVA) INH SCH (08:00)
[2021-10-22] MEDS: CETIRIZINE (ZyrTEC) 10 MG TAB PO SCH (08:36)
[2021-10-22] MEDS: oxyBUTYnin 5 MG TAB PO SCH ×3 (08:36→20:53)
[2021-10-22] MEDS: FOLIC ACID 1MG TAB PO SCH (08:36)
[2021-10-22] MEDS: guaiFENesin ER 600 MG TAB PO SCH ×2 (08:36→20:54)
[2021-10-22] MEDS: OYSTER SHELL CALCIUM 500 MG TAB PO SCH ×2 (08:37→20:53)
[2021-10-22] MEDS: ASPIRIN 81MG ENTERIC TABLET PO SCH (08:37)
[2021-10-22] MEDS: THIAMINE 100 MG TAB PO SCH (08:37)
[2021-10-22] MEDS: MULTIVITAMINS/MINERALS THERAP 1 TAB PO SCH (08:37)
[2021-10-22] MEDS: HEPARIN SOD (PORCINE) 5000UNITS/ML 1ML VIAL/SYRINGE SC SCH ×2 (08:38→20:54)
[2021-10-22] MEDS: MIRALAX *UNIT DOSE* 17GM PACKET PO SCH ×3 (08:41→20:59)
[2021-10-22] MEDS: LevoFLOXacin 750 MG TABLET PO SCH (17:03)
[2021-10-23 06:00] VITALS: BP 143/72
[2021-10-23] MEDS: TIOTROPIUM INHALER/CAPSULE (SPIRIVA) INH SCH (08:00)
[2021-10-23] MEDS: MIRALAX *UNIT DOSE* 17GM PACKET PO SCH ×2 (08:17→21:00)
[2021-10-23] MEDS: CETIRIZINE (ZyrTEC) 10 MG TAB PO SCH (08:18)
[2021-10-23] MEDS: oxyBUTYnin 5 MG TAB PO SCH ×3 (08:18→21:00)
[2021-10-23] MEDS: guaiFENesin ER 600 MG TAB PO SCH ×2 (08:18→21:00)
[2021-10-23] MEDS: THIAMINE 100 MG TAB PO SCH (08:18)
[2021-10-23] MEDS: OYSTER SHELL CALCIUM 500 MG TAB PO SCH ×2 (08:18→21:00)
[2021-10-23] MEDS: ASPIRIN 81MG ENTERIC TABLET PO SCH (08:18)
[2021-10-23] MEDS: MULTIVITAMINS/MINERALS THERAP 1 TAB PO SCH (08:18)
[2021-10-23] MEDS: FOLIC ACID 1MG TAB PO SCH (08:18)
[2021-10-23] MEDS: HEPARIN SOD (PORCINE) 5000UNITS/ML 1ML VIAL/SYRINGE SC SCH ×2 (08:18→21:00)
[2021-10-23] MEDS: SYMBICORT 80/4.5MCG INHALER 6GM INH SCH ×2 (08:47→20:00)
[2021-10-24] MEDS: RAMELTEON 8 MG TAB (ROZEREM) PO PRN ×2 (00:52→20:23)
[2021-10-24 05:20] VITALS: BP 145/74
[2021-10-24] MEDS: SYMBICORT 80/4.5MCG INHALER 6GM INH SCH ×2 (08:06→20:00)
[2021-10-24] MEDS: TIOTROPIUM INHALER/CAPSULE (SPIRIVA) INH SCH (08:06)
[2021-10-24] MEDS: THIAMINE 100 MG TAB PO SCH (08:18)
[2021-10-24] MEDS: guaiFENesin ER 600 MG TAB PO SCH ×2 (08:18→20:23)
[2021-10-24] MEDS: FOLIC ACID 1MG TAB PO SCH (08:18)
[2021-10-24] MEDS: oxyBUTYnin 5 MG TAB PO SCH ×3 (08:18→20:23)
[2021-10-24] MEDS: HEPARIN SOD (PORCINE) 5000UNITS/ML 1ML VIAL/SYRINGE SC SCH ×2 (08:19→20:23)
[2021-10-24] MEDS: MIRALAX *UNIT DOSE* 17GM PACKET PO SCH ×2 (08:19→20:23)
[2021-10-24] MEDS: MULTIVITAMINS/MINERALS THERAP 1 TAB PO SCH (08:19)
[2021-10-24] MEDS: OYSTER SHELL CALCIUM 500 MG TAB PO SCH ×2 (08:19→20:23)
[2021-10-24] MEDS: CETIRIZINE (ZyrTEC) 10 MG TAB PO SCH (08:19)
[2021-10-24] MEDS: ASPIRIN 81MG ENTERIC TABLET PO SCH (08:19)
[2021-10-24] MEDS: CARVedilol 3.125 MG TAB PO SCH (11:30)
[2021-10-25 05:14] VITALS: BP 151/64
[2021-10-25] MEDS: SYMBICORT 80/4.5MCG INHALER 6GM INH SCH ×2 (08:00→19:29)
[2021-10-25] MEDS: TIOTROPIUM INHALER/CAPSULE (SPIRIVA) INH SCH (08:00)
[2021-10-25] MEDS: HEPARIN SOD (PORCINE) 5000UNITS/ML 1ML VIAL/SYRINGE SC SCH ×2 (10:02→20:09)
[2021-10-25] MEDS: CARVedilol 3.125 MG TAB PO SCH (10:03)
[2021-10-25] MEDS: CETIRIZINE (ZyrTEC) 10 MG TAB PO SCH (10:03)
[2021-10-25] MEDS: MIRALAX *UNIT DOSE* 17GM PACKET PO SCH ×3 (10:03→20:12)
[2021-10-25] MEDS: ASPIRIN 81MG ENTERIC TABLET PO SCH (10:03)
[2021-10-25] MEDS: guaiFENesin ER 600 MG TAB PO SCH ×2 (10:03→20:09)
[2021-10-25] MEDS: THIAMINE 100 MG TAB PO SCH (10:03)
[2021-10-25] MEDS: OYSTER SHELL CALCIUM 500 MG TAB PO SCH ×2 (10:04→20:09)
[2021-10-25] MEDS: oxyBUTYnin 5 MG TAB PO SCH ×3 (10:04→20:09)
[2021-10-25] MEDS: FOLIC ACID 1MG TAB PO SCH (10:04)
[2021-10-25] MEDS: MULTIVITAMINS/MINERALS THERAP 1 TAB PO SCH (10:04)
[2021-10-25 10:07] VITALS: BP 161/80
[2021-10-25] MEDS: ACETAMINOPHEN TAB 650MG DOSE (2X325MG) PO PRN (15:26)
[2021-10-25] MEDS: RAMELTEON 8 MG TAB (ROZEREM) PO PRN (20:09)
[2021-10-26 06:00] VITALS: BP 155/69
[2021-10-26] MEDS: SYMBICORT 80/4.5MCG INHALER 6GM INH SCH ×2 (08:00→20:00)
[2021-10-26] MEDS: TIOTROPIUM INHALER/CAPSULE (SPIRIVA) INH SCH (08:00)
[2021-10-26] MEDS: MIRALAX *UNIT DOSE* 17GM PACKET PO SCH ×3 (09:00→20:28)
[2021-10-26] MEDS: FOLIC ACID 1MG TAB PO SCH (09:24)
[2021-10-26] MEDS: guaiFENesin ER 600 MG TAB PO SCH ×2 (09:24→20:28)
[2021-10-26] MEDS: THIAMINE 100 MG TAB PO SCH (09:24)
[2021-10-26] MEDS: OYSTER SHELL CALCIUM 500 MG TAB PO SCH ×2 (09:24→20:28)
[2021-10-26] MEDS: ASPIRIN 81MG ENTERIC TABLET PO SCH (09:24)
[2021-10-26] MEDS: oxyBUTYnin 5 MG TAB PO SCH ×3 (09:24→20:28)
[2021-10-26] MEDS: MULTIVITAMINS/MINERALS THERAP 1 TAB PO SCH (09:24)
[2021-10-26] MEDS: CETIRIZINE (ZyrTEC) 10 MG TAB PO SCH (09:24)
[2021-10-26] MEDS: CARVedilol 3.125 MG TAB PO SCH (09:25)
[2021-10-26] MEDS: HEPARIN SOD (PORCINE) 5000UNITS/ML 1ML VIAL/SYRINGE SC SCH ×2 (09:26→20:28)
[2021-10-26] MEDS: ACETAMINOPHEN TAB 650MG DOSE (2X325MG) PO PRN (09:27)
[2021-10-26] MEDS: RAMELTEON 8 MG TAB (ROZEREM) PO PRN (20:28)
[2021-10-27] MEDS: QUEtiapine FUMARATE 25 MG TAB PO PRN ×2 (00:51→23:39)
[2021-10-27 05:47] VITALS: BP 149/71
[2021-10-27] MEDS: TIOTROPIUM INHALER/CAPSULE (SPIRIVA) INH SCH (08:00)
[2021-10-27] MEDS: SYMBICORT 80/4.5MCG INHALER 6GM INH SCH ×2 (08:00→19:52)
[2021-10-27] MEDS: guaiFENesin ER 600 MG TAB PO SCH ×2 (09:17→20:44)
[2021-10-27] MEDS: HEPARIN SOD (PORCINE) 5000UNITS/ML 1ML VIAL/SYRINGE SC SCH ×2 (09:17→20:45)
[2021-10-27] MEDS: OYSTER SHELL CALCIUM 500 MG TAB PO SCH ×2 (09:17→20:44)
[2021-10-27] MEDS: THIAMINE 100 MG TAB PO SCH (09:17)
[2021-10-27] MEDS: FOLIC ACID 1MG TAB PO SCH (09:18)
[2021-10-27] MEDS: oxyBUTYnin 5 MG TAB PO SCH ×3 (09:18→20:44)
[2021-10-27] MEDS: MULTIVITAMINS/MINERALS THERAP 1 TAB PO SCH (09:18)
[2021-10-27] MEDS: CETIRIZINE (ZyrTEC) 10 MG TAB PO SCH (09:18)
[2021-10-27] MEDS: CARVedilol 3.125 MG TAB PO SCH (09:19)
[2021-10-27] MEDS: ASPIRIN 81MG ENTERIC TABLET PO SCH (09:19)
[2021-10-27] MEDS: ACETAMINOPHEN TAB 650MG DOSE (2X325MG) PO PRN (09:20)
[2021-10-27] MEDS: MIRALAX *UNIT DOSE* 17GM PACKET PO SCH ×2 (09:20→21:01)
[2021-10-27] MEDS: RAMELTEON 8 MG TAB (ROZEREM) PO PRN (20:52)
[2021-10-28 06:00] VITALS: BP 144/64
[2021-10-28] MEDS: SYMBICORT 80/4.5MCG INHALER 6GM INH SCH (07:28)
[2021-10-28] MEDS: TIOTROPIUM INHALER/CAPSULE (SPIRIVA) INH SCH (07:28)
[2021-10-28] MEDS: OYSTER SHELL CALCIUM 500 MG TAB PO SCH (08:22)
[2021-10-28] MEDS: ASPIRIN 81MG ENTERIC TABLET PO SCH (08:22)
[2021-10-28] MEDS: guaiFENesin ER 600 MG TAB PO SCH (08:22)
[2021-10-28] MEDS: MULTIVITAMINS/MINERALS THERAP 1 TAB PO SCH (08:22)
[2021-10-28] MEDS: oxyBUTYnin 5 MG TAB PO SCH (08:22)
[2021-10-28] MEDS: CETIRIZINE (ZyrTEC) 10 MG TAB PO SCH (08:23)
[2021-10-28] MEDS: FOLIC ACID 1MG TAB PO SCH (08:23)
[2021-10-28 08:24] VITALS: BP 155/65
[2021-10-28] MEDS: MIRALAX *UNIT DOSE* 17GM PACKET PO SCH (08:24)
[2021-10-28] MEDS: CARVedilol 3.125 MG TAB PO SCH (08:24)
[2021-10-28] MEDS: THIAMINE 100 MG TAB PO SCH (08:26)
[2021-10-28] MEDS: HEPARIN SOD (PORCINE) 5000UNITS/ML 1ML VIAL/SYRINGE SC SCH (08:27)
[2021-10-28] MEDS ORDERED: CARV3.12 PO (13:28)
[2021-10-28] MEDS ORDERED: OXYB5TAB10 PO (13:28)
== END 2021-10-28 16:07 | DRG 698 ==
LOC: M ED 22:56 → M ED INP 22:57 → ENRESERV 09-15 15:58 → M MSPAV 09-15 16:53 → OBSVTOIN 09-18 08:33
PROVIDERS: ADMIT Internal Medicine; ATTEND Internal Medicine
DX: T83.511A Infection and inflammatory reaction due to indwelling urethral catheter, initial encounter (principal); G93.41 Metabolic encephalopathy; I50.33 Acute on chronic diastolic (congestive) heart failure; E87.1 Hypo-osmolality and hyponatremia; L03.114 Cellulitis of left upper limb; R29.6 Repeated falls; N39.0 Urinary tract infection, site not specified; F10.20 Alcohol dependence, uncomplicated; J44.9 Chronic obstructive pulmonary disease, unspecified; I10 Essential (primary) hypertension; I27.81 Cor pulmonale (chronic); F03.90 Unspecified dementia, unspecified severity, without behavioral disturbance, psychotic disturbance, mood disturbance, and anxiety; Z85.51 Personal history of malignant neoplasm of bladder; Z79.899 Other long term (current) drug therapy; Z79.82 Long term (current) use of aspirin; Z85.46 Personal history of malignant neoplasm of prostate; Y84.6 Urinary catheterization as the cause of abnormal reaction of the patient, or of later complication, without mention of misadventure at the time of the procedure

== ENCOUNTER → 2021-12-07 | Outpatient (REF) | payer MEDICARE, OTHER ==
[~2021-12-07] MED LIST changes: +ACET32TAB PO; +ALBU8.5H INH; +AMOX875T2 PO; +ASPI-161 PO; +CARV3.12 PO; +DIPH12.529 PO; +DOXY100T PO; +MIRA1POW3 PO; +OXYB5TAB10 PO; +OYST1TAB PO; +SENN-23 PO; +SPIR12.9 INH; +SYMB80INH INH; +THIA100TA PO; +VITMTA PO
[2021-12-07 18:53] LABS: APPEARANCE, URINE MANUAL HAZY (CLEAR); BILIRUBIN, URINE MANUAL NEGATIVE (NEGATIVE); BLOOD URINE MANUAL POSITIVE (NEGATIVE); COLOR, URINE MANUAL LT YELLOW (YELLOW); GLUCOSE, URINE (UA) MANUAL NEGATIVE (NEGATIVE); KETONE, URINE MANUAL NEGATIVE (NEGATIVE); LEUKOCYTE ESTERASE, URINE MAN POSITIVE (NEGATIVE); NITRITE, URINE MANUAL NEGATIVE (NEGATIVE); PROTEIN, URINE MANUAL NEGATIVE (NEGATIVE); UROBILINOGEN, URINE MANUAL NORMAL (NORMAL)
[2021-12-07 19:21] LABS: WBC, URINE 20-30 /hpf (0-3)
[2021-12-07 19:22] LABS: SQUAMOUS EPITHELIAL CELL URINE SMALL AMOUNT /hpf (SMALL AMT); TRANSITIONAL EPI CELLS, URINE MOD AMOUNT /hpf
[2021-12-07 19:23] LABS: BACTERIA, URINE SMALL AMOUNT; HYALINE CAST, URINE NONE SEEN /lpf (0-1); MUCUS, URINE MOD AMOUNT (NEGATIVE)
== END ==
LOC: M SMT 17:19
PROVIDERS: ATTEND Urology
DX: Z85.51 Personal history of malignant neoplasm of bladder (principal)

== ENCOUNTER 2022-09-18 17:26 | Inpatient (IN) | payer MEDICARE, OTHER ==
[~2022-09-18] VITALS: Ht 180.3 cm; Wt 87.0 kg
[2022-09-18] MEDS ORDERED: LIDOCAINE 2% 5ML JELLY UROJET TOP ONE (21:10)
[2022-09-18] MEDS ORDERED: NS 1,000 ML IV ONE (21:10)
[2022-09-18 21:52] LABS: BASO % 0.1 % (0.0-1.0); HEMATOCRIT 43.1 % (42.0-52.0); HEMOGLOBIN 15.1 g/dl (13.5-17.5); LYMPH # 0.4 10^3/uL (1.5-5.0); LYMPH % 1.4 % (24.0-44.0); MEAN CORPUSCULAR HEMOGLOBIN 30.9 pg (27.0-33.0); MEAN CORPUSCULAR VOLUME 88.3 fl (80.0-96.0); MONO # 1.5 10^3/uL (0.0-0.8); MONO % 5.3 % (2.0-8.0); NEUTROPHILS # 25.4 10^3/uL (1.5-8.5); NEUTROPHILS % 92.6 % (36.0-66.0); PLATELET COUNT, AUTOMATED 290 10^3/uL (150-450); RED BLOOD COUNT 4.88 10^6/uL (4.30-6.10); WHITE BLOOD COUNT 27.4 10^3/uL (4.0-10.0)
[2022-09-18 22:09] LABS: ETHYL ALCOHOL (ETHANOL) < 0.003 % (0.000-0.010)
[2022-09-18 22:10] LABS: ACETAMINOPHEN LEVEL < 2.0 UG/ML (10.0-20.0); ALBUMIN 3.6 G/DL (3.2-5.2); ALKALINE PHOSPHATASE 89 U/L (46-116); ALT/SGPT 16 U/L (7.0-40); AST/SGOT 45 U/L (<34); BILIRUBIN,DIRECT 0.8 MG/DL (<0.4); BILIRUBIN,TOTAL 1.9 MG/DL (0.3-1.2); BLOOD UREA NITROGEN 38 MG/DL (9-23); CALCIUM LEVEL 10.4 MG/DL (8.3-10.6); CARBON DIOXIDE LEVEL 24 MMOL/L (20-31); CHLORIDE LEVEL 97 MMOL/L (98-107); CREATININE FOR GFR 1.64 MG/DL (0.70-1.30); GLOMERULAR FILTRATION RATE 43.1 (>35); GLUCOSE, FASTING 133 MG/DL (74-106); SALICYLATE LEVEL < 3.0 MG/DL (<30); SODIUM LEVEL 130 MMOL/L (136-145); TOTAL PROTEIN 6.2 G/DL (5.7-8.2)
[2022-09-18 22:26] LABS: OSMOLALITY SERUM 278 MOSM/KG (280-301)
[2022-09-18 22:29] LABS: RSV AMPLIFICATION NEGATIVE (NEGATIVE)
[2022-09-19] MEDS ORDERED: cefTRIAXone SOD 1 GM in D5W MINI-BAG PLUS 50 ML IV ONE ×2
[2022-09-19] MEDS ORDERED: ACETAMINOPHEN TAB 650MG DOSE (2X325MG) PO PRN (00:10)
[2022-09-19] MEDS: NS 1,000 ML IV SCH ×2 (00:10→13:17)
[2022-09-19] MEDS ORDERED: NS 1,000 ML IV ONE (00:10)
[2022-09-19] MEDS ORDERED: MED REC IN PROGRESS XX SCH (00:20)
[2022-09-19 01:30] VITALS: BP 107/52; TEMP 97.7; O2SAT 98
[2022-09-19] MEDS ORDERED: PATIENT COMMENT (02:02)
[2022-09-19] MEDS ORDERED: LOPE1CAP5 PO (02:02)
[2022-09-19] MEDS ORDERED: BUSP10TA PO (02:02)
[2022-09-19] MEDS ORDERED: ACET-907 PO (02:02)
[2022-09-19] MEDS ORDERED: FLUO10CA18 PO (02:02)
[2022-09-19] MEDS ORDERED: MICO85PO7 TOP (02:02)
[2022-09-19] MEDS ORDERED: QUET1TAB17 PO (02:02)
[2022-09-19] MEDS ORDERED: FLOM0.4C39 PO (02:02)
[2022-09-19] MEDS ORDERED: SENN1TAB41 PO (02:02)
[2022-09-19] MEDS ORDERED: VITA100093 PO (02:02)
[2022-09-19] MEDS ORDERED: SENN8.6T58 PO (02:02)
[2022-09-19] MEDS ORDERED: HOME MED LIST COMPLETE! XX SCH (02:05)
[2022-09-19] MEDS ORDERED: PIPERACILLIN/TAZOBACTAM SOD 3.375 GM in D5W MINI-BAG PLUS 50 ML IV SCH (04:00)
[2022-09-19] MEDS ORDERED: PIPERACILLIN/TAZOBACTAM SOD 2.25 GM in D5W MINI-BAG PLUS 50 ML IV SCH (04:00)
[2022-09-19] MEDS ORDERED: SENNA 8.6 MG TAB (SENOKOT) PO PRN (04:45)
[2022-09-19] MEDS ORDERED: ALBUTEROL 90 MCG/ACT 8GM HFA INHALER INH PRN (04:45)
[2022-09-19] MEDS: HEPARIN SOD (PORCINE) 5000UNITS/ML 1ML VIAL/SYRINGE SC SCH ×3 (05:57→22:00)
[2022-09-19 06:39] LABS: BLOOD UREA NITROGEN 35 MG/DL (9-23); CALCIUM LEVEL 9.2 MG/DL (8.3-10.6); CARBON DIOXIDE LEVEL 24 MMOL/L (20-31); CHLORIDE LEVEL 103 MMOL/L (98-107); CREATININE FOR GFR 1.21 MG/DL (0.70-1.30); GLOMERULAR FILTRATION RATE > 60.0 (>35); GLUCOSE, FASTING 110 MG/DL (74-106); MAGNESIUM LEVEL 1.5 MG/DL (1.8-2.4); POTASSIUM SERUM 3.7 MMOL/L (3.5-5.1); SODIUM LEVEL 131 MMOL/L (136-145)
[2022-09-19 06:47] LABS: MEAN CORPUSCULAR HGB CONC 34.9 g/dl (32.0-36.5); MEAN CORPUSCULAR VOLUME 88.9 fl (80.0-96.0); PLATELET COUNT, AUTOMATED 235 10^3/uL (150-450); RED BLOOD COUNT 4.16 10^6/uL (4.30-6.10); WHITE BLOOD COUNT 24.1 10^3/uL (4.0-10.0)
[2022-09-19 06:49] LABS: HEMOGLOBIN 12.9 g/dl (13.5-17.5)
[2022-09-19 07:53] VITALS: BP 116/55; TEMP 97.8; O2SAT 94
[2022-09-19] MEDS: MAGNESIUM OXIDE 400MG TAB (MAG-OX) PO SCH ×2 (08:27→21:00)
[2022-09-19] MEDS: busPIRone 10 MG TAB PO SCH ×3 (08:27→21:00)
[2022-09-19] MEDS: LACTOBACILLUS ACIDOPHILUS CAP (BACID) PO SCH ×3 (08:27→16:58)
[2022-09-19] MEDS: ASPIRIN 81MG ENTERIC TABLET PO SCH (08:27)
[2022-09-19] MEDS: FLUoxetine 10 MG CAP PO SCH (08:28)
[2022-09-19] MEDS ORDERED: PENICILLIN V POTASSIUM 500 MG TAB PO SCH (09:00)
[2022-09-19] MEDS ORDERED: MAG SULF 1GM/100ML (MAG RUN) 1 GM in IV 1 EA IV ONE (09:00)
[2022-09-19] MEDS ORDERED: lisinopriL 40MG TAB PO SCH (09:00)
[2022-09-19] MEDS: PIPERACILLIN/TAZOBACTAM SOD 3.375 GM in D5W MINI-BAG PLUS 50 ML IV SCH ×3 (10:19→21:21)
[2022-09-19 12:36] VITALS: BP 117/58; TEMP 97.9; O2SAT 97
[2022-09-19 13:35] VITALS: BP 114/56; TEMP 97.7; O2SAT 98
[2022-09-19] MEDS: QUEtiapine FUMARATE 25 MG TAB PO SCH (21:00)
[2022-09-19 22:00] VITALS: BP 118/57; TEMP 98.1; O2SAT 96
[2022-09-20] MEDS: PIPERACILLIN/TAZOBACTAM SOD 3.375 GM in D5W MINI-BAG PLUS 50 ML IV SCH ×4 (03:41→21:00)
[2022-09-20 05:43] VITALS: BP 116/54; TEMP 97.7; O2SAT 97
[2022-09-20] MEDS: HEPARIN SOD (PORCINE) 5000UNITS/ML 1ML VIAL/SYRINGE SC SCH (05:49)
[2022-09-20 06:14] LABS: BASO % 0.1 % (0.0-1.0); EOS % 0.1 % (0.0-3.0); HEMATOCRIT 35.7 % (42.0-52.0); HEMOGLOBIN 12.3 g/dl (13.5-17.5); LYMPH # 0.5 10^3/uL (1.5-5.0); LYMPH % 3.2 % (24.0-44.0); MEAN CORPUSCULAR HGB CONC 34.5 g/dl (32.0-36.5); MEAN CORPUSCULAR VOLUME 89.9 fl (80.0-96.0); MONO # 0.8 10^3/uL (0.0-0.8); MONO % 5.5 % (2.0-8.0); NEUTROPHILS # 13.4 10^3/uL (1.5-8.5); NEUTROPHILS % 90.7 % (36.0-66.0); PLATELET COUNT, AUTOMATED 194 10^3/uL (150-450); RED BLOOD COUNT 3.97 10^6/uL (4.30-6.10); WHITE BLOOD COUNT 14.8 10^3/uL (4.0-10.0)
[2022-09-20 06:48] LABS: BLOOD UREA NITROGEN 23 MG/DL (9-23); CALCIUM LEVEL 9.2 MG/DL (8.3-10.6); CARBON DIOXIDE LEVEL 24 MMOL/L (20-31); CHLORIDE LEVEL 100 MMOL/L (98-107); CREATININE FOR GFR 0.75 MG/DL (0.70-1.30); GLOMERULAR FILTRATION RATE > 60.0 (>35); GLUCOSE, FASTING 81 MG/DL (74-106); MAGNESIUM LEVEL 1.6 MG/DL (1.8-2.4); POTASSIUM SERUM 3.3 MMOL/L (3.5-5.1); SODIUM LEVEL 133 MMOL/L (136-145)
[2022-09-20] MEDS ORDERED: POTASSIUM CHLORIDE 10MEQ SR TABLET PO SCH (07:25)
[2022-09-20] MEDS ORDERED: POTASSIUM CHLORIDE 10MEQ SR TABLET PO ONE (08:00)
[2022-09-20] MEDS ORDERED: MAG SULF 1GM/100ML (MAG RUN) 1 GM in IV 1 EA IV ONE (08:30)
[2022-09-20] MEDS: MAGNESIUM OXIDE 400MG TAB (MAG-OX) PO SCH ×2 (08:43→20:52)
[2022-09-20] MEDS: FLUoxetine 10 MG CAP PO SCH (08:43)
[2022-09-20] MEDS: busPIRone 10 MG TAB PO SCH ×3 (08:43→20:52)
[2022-09-20] MEDS: ASPIRIN 81MG ENTERIC TABLET PO SCH (08:43)
[2022-09-20] MEDS: LACTOBACILLUS ACIDOPHILUS CAP (BACID) PO SCH ×3 (08:43→17:19)
[2022-09-20 13:44] LABS: MAGNESIUM LEVEL 1.8 MG/DL (1.8-2.4); POTASSIUM SERUM 3.4 MMOL/L (3.5-5.1)
[2022-09-20 14:00] VITALS: BP 129/60; TEMP 97.9; O2SAT 18
[2022-09-20 17:36] LABS: MAGNESIUM LEVEL 1.7 MG/DL (1.8-2.4); POTASSIUM SERUM 3.5 MMOL/L (3.5-5.1)
[2022-09-20 20:25] VITALS: BP 127/63; TEMP 98.2; O2SAT 92
[2022-09-20] MEDS: QUEtiapine FUMARATE 25 MG TAB PO SCH (20:52)
[2022-09-20] MEDS ORDERED: MAGN400T2 PO (21:54)
[2022-09-20] MEDS ORDERED: LEVO1TAB40 PO (21:54)
[2022-09-20] MEDS ORDERED: BACI1CAP PO (21:54)
[2022-09-20] MEDS ORDERED: POTA-136 PO (21:54)
[2022-09-20] MEDS: POTASSIUM CHLORIDE 10MEQ SR TABLET PO SCH (22:32)
[2022-09-21] MEDS: PIPERACILLIN/TAZOBACTAM SOD 3.375 GM in D5W MINI-BAG PLUS 50 ML IV SCH ×2 (04:02→09:51)
[2022-09-21 05:35] VITALS: BP 128/64; TEMP 97.5; O2SAT 94
[2022-09-21 05:57] LABS: BASO % 0.2 % (0.0-1.0); EOS # 0.1 10^3/uL (0.0-0.5); EOS % 0.6 % (0.0-3.0); HEMATOCRIT 35.7 % (42.0-52.0); HEMOGLOBIN 12.3 g/dl (13.5-17.5); LYMPH # 0.5 10^3/uL (1.5-5.0); LYMPH % 5.4 % (24.0-44.0); MEAN CORPUSCULAR HEMOGLOBIN 31.3 pg (27.0-33.0); MEAN CORPUSCULAR HGB CONC 34.5 g/dl (32.0-36.5); MEAN CORPUSCULAR VOLUME 90.8 fl (80.0-96.0); MONO # 0.6 10^3/uL (0.0-0.8); NEUTROPHILS # 7.6 10^3/uL (1.5-8.5); NEUTROPHILS % 86.6 % (36.0-66.0); PLATELET COUNT, AUTOMATED 192 10^3/uL (150-450); RED BLOOD COUNT 3.93 10^6/uL (4.30-6.10); WHITE BLOOD COUNT 8.7 10^3/uL (4.0-10.0)
[2022-09-21 06:26] LABS: BLOOD UREA NITROGEN 15 MG/DL (9-23); CALCIUM LEVEL 8.1 MG/DL (8.3-10.6); CARBON DIOXIDE LEVEL 26 MMOL/L (20-31); CHLORIDE LEVEL 102 MMOL/L (98-107); CREATININE FOR GFR 0.67 MG/DL (0.70-1.30); GLOMERULAR FILTRATION RATE > 60.0 (>35); GLUCOSE, FASTING 95 MG/DL (74-106); MAGNESIUM LEVEL 1.7 MG/DL (1.8-2.4); POTASSIUM SERUM 3.5 MMOL/L (3.5-5.1); SODIUM LEVEL 135 MMOL/L (136-145)
[2022-09-21] MEDS ORDERED: POTASSIUM CHLORIDE 10MEQ SR TABLET PO SCH (09:00)
[2022-09-21] MEDS ORDERED: FOSFOMYCIN TROMETHAMINE 3 GM POWDER PACKET (MONUROL) PO ONE (09:00)
[2022-09-21] MEDS: ASPIRIN 81MG ENTERIC TABLET PO SCH (09:50)
[2022-09-21] MEDS: busPIRone 10 MG TAB PO SCH (09:50)
[2022-09-21] MEDS: LACTOBACILLUS ACIDOPHILUS CAP (BACID) PO SCH (09:50)
[2022-09-21] MEDS: FLUoxetine 10 MG CAP PO SCH (09:50)
[2022-09-21] MEDS: POTASSIUM CHLORIDE 10MEQ SR TABLET PO SCH (09:51)
[2022-09-21] MEDS: MAGNESIUM OXIDE 400MG TAB (MAG-OX) PO SCH (09:51)
[2022-09-21] MEDS ORDERED: HYDR-3490 PO (10:34)
[2022-09-21] MEDS ORDERED: HYDR12.55 PO (10:39)
== END 2022-09-21 13:00 | disposition home health service (06) | DRG 698 ==
LOC: M ED 17:26 → M ED INP 17:27 → UNDOADMOB 17:27 → OBSVTOIN 09-19 00:10 → M ED INP 09-19 00:10 → M PCU 09-19 01:20 → M MSPAV 09-19 13:36
PROVIDERS: ADMIT Family Medicine; ATTEND General Practice
DX: T83.511A Infection and inflammatory reaction due to indwelling urethral catheter, initial encounter (principal); A41.9 Sepsis, unspecified organism; E87.1 Hypo-osmolality and hyponatremia; N17.9 Acute kidney failure, unspecified; E87.20 Acidosis, unspecified; I50.32 Chronic diastolic (congestive) heart failure; I13.0 Hypertensive heart and chronic kidney disease with heart failure and stage 1 through stage 4 chronic kidney disease, or unspecified chronic kidney disease; N39.0 Urinary tract infection, site not specified; J44.9 Chronic obstructive pulmonary disease, unspecified; I27.81 Cor pulmonale (chronic); N18.9 Chronic kidney disease, unspecified; E87.6 Hypokalemia; E83.42 Hypomagnesemia; M10.9 Gout, unspecified; F32.A Depression, unspecified; F41.9 Anxiety disorder, unspecified; Z85.46 Personal history of malignant neoplasm of prostate; Y84.6 Urinary catheterization as the cause of abnormal reaction of the patient, or of later complication, without mention of misadventure at the time of the procedure; Z79.899 Other long term (current) drug therapy; Z79.82 Long term (current) use of aspirin; Z96.653 Presence of artificial knee joint, bilateral

== ENCOUNTER 2022-10-03 13:11 | Emergency (ER) | payer MEDICARE, OTHER ==
[~2022-10-03 13:11] MED LIST changes: +ACET-907 PO; +BACI1CAP PO; +BUSP10TA PO; +FLOM0.4C39 PO; +FLUO10CA18 PO; +LEVO1TAB40 PO; +MAGN400T2 PO; +MICO85PO7 TOP; +PATIENT COMMENT; +POTA-136 PO; +SENN1TAB41 PO; +SENN8.6T58 PO; +VITA100093 PO
[2022-10-03 13:30] VITALS: BP 152/84
[2022-10-03 13:56] VITALS: TEMP 98.9; O2SAT 95
[2022-10-03 15:07] LABS: BASO # 0.1 10^3/uL (0.0-0.2); BASO % 0.5 % (0.0-1.0); EOS # 0.1 10^3/uL (0.0-0.5); EOS % 1.4 % (0.0-3.0); HEMATOCRIT 40.2 % (42.0-52.0); HEMOGLOBIN 13.8 g/dl (13.5-17.5); LYMPH # 0.9 10^3/uL (1.5-5.0); LYMPH % 9.1 % (24.0-44.0); MEAN CORPUSCULAR HGB CONC 34.3 g/dl (32.0-36.5); MEAN CORPUSCULAR VOLUME 90.3 fl (80.0-96.0); MONO # 0.7 10^3/uL (0.0-0.8); MONO % 6.8 % (2.0-8.0); NEUTROPHILS # 8.2 10^3/uL (1.5-8.5); NEUTROPHILS % 81.8 % (36.0-66.0); PLATELET COUNT, AUTOMATED 321 10^3/uL (150-450); RED BLOOD COUNT 4.45 10^6/uL (4.30-6.10)
[2022-10-03] MEDS ORDERED: HYDR-3490 PO (15:11)
[2022-10-03] MEDS ORDERED: LISI40TA4 PO (15:11)
[2022-10-03] MEDS ORDERED: FLUO1TAB PO (15:11)
[2022-10-03] MEDS ORDERED: CVS100LI4 PO (15:18)
[2022-10-03] MEDS ORDERED: LOPE1CAP5 PO (15:18)
[2022-10-03 15:20] LABS: INR 0.93; PROTHROMBIN TIME 12.7 SECONDS (12.5-14.5)
[2022-10-03 15:21] LABS: PARTIAL THROMBOPLASTIN TIME 28.9 SECONDS (24.8-34.2)
[2022-10-03 15:31] LABS: BLOOD UREA NITROGEN 11 MG/DL (9-23); CALCIUM LEVEL 8.9 MG/DL (8.3-10.6); CARBON DIOXIDE LEVEL 27 MMOL/L (20-31); CHLORIDE LEVEL 98 MMOL/L (98-107); CREATININE FOR GFR 0.68 MG/DL (0.70-1.30); GLOMERULAR FILTRATION RATE > 60.0 (>35); GLUCOSE, FASTING 97 MG/DL (74-106); POTASSIUM SERUM 3.7 MMOL/L (3.5-5.1); SODIUM LEVEL 135 MMOL/L (136-145)
[2022-10-03] MEDS ORDERED: MED REC IN PROGRESS XX SCH (15:35)
[2022-10-03] MEDS ORDERED: HOME MED LIST COMPLETE! XX SCH (15:40)
[2022-10-03] MEDS ORDERED: CIPR500T39 PO (16:21)
[2022-10-03] MEDS ORDERED: CIPROFLOXACIN 500MG TABLET PO ONE (16:25)
== END 2022-10-03 16:44 | disposition home or self-care (01) ==
LOC: EDBD 13:11 → M ED 13:11
DX: N30.01 Acute cystitis with hematuria (principal); J44.9 Chronic obstructive pulmonary disease, unspecified; C61 Malignant neoplasm of prostate; F41.9 Anxiety disorder, unspecified; F32.A Depression, unspecified; M10.9 Gout, unspecified; F17.200 Nicotine dependence, unspecified, uncomplicated; Z79.52 Long term (current) use of systemic steroids; Z79.82 Long term (current) use of aspirin; Z79.899 Other long term (current) drug therapy

== ENCOUNTER → 2022-10-19 | Outpatient (REF) | payer OTHER ==
[~2022-10-19] MED LIST changes: +CIPR500T39 PO; +CVS100LI4 PO; +FLUO1TAB PO
[2022-10-19 15:18] LABS: APPEARANCE, URINE CLOUDY (CLEAR); BACTERIA, URINE AUTO NEGATIVE (NEGATIVE); BILIRUBIN, URINE AUTO NEGATIVE (NEGATIVE); BLOOD, URINE BLOOD 3+ (NEGATIVE); COLOR, URINE RED (YELLOW); GLUCOSE, URINE (UA) AUTO NEGATIVE (NEGATIVE); KETONE, URINE AUTO NEGATIVE (NEGATIVE); LEUKOCYTE ESTERASE, URINE AUTO 3+ (NEGATIVE); MUCUS, URINE SMALL (NEGATIVE); NITRITE, URINE AUTO NEGATIVE (NEGATIVE); PROTEIN, URINE AUTO 2+ mg/dL (NEGATIVE); RBC, URINE AUTO TNTC /HPF (0-3); SPECIFIC GRAVITY URINE AUTO 1.014 (1.002-1.035); SQUAMOUS EPITHELIAL CELL UR AU 0 /HPF (0-6); UROBILINOGEN, URINE AUTO 0.2 mg/dL (0.0-2.0); WBC, URINE AUTO TNTC /HPF (0-3)
== END ==
LOC: M SMT 13:29
PROVIDERS: ATTEND Urology
DX: R30.0 Dysuria (principal)

== ENCOUNTER → 2023-01-30 | Outpatient (REF) | payer OTHER ==
[~2023-01-30] MED LIST changes: -OXYB5TAB10 PO; +OXYB5TAB11 PO
[2023-01-30 19:17] LABS: APPEARANCE, URINE HAZY (CLEAR); BACTERIA, URINE AUTO 1+ (NEGATIVE); BILIRUBIN, URINE AUTO NEGATIVE (NEGATIVE); BLOOD, URINE BLOOD 3+ (NEGATIVE); COLOR, URINE STRAW (YELLOW); GLUCOSE, URINE (UA) AUTO NEGATIVE (NEGATIVE); KETONE, URINE AUTO NEGATIVE (NEGATIVE); LEUKOCYTE ESTERASE, URINE AUTO 3+ (NEGATIVE); NITRITE, URINE AUTO NEGATIVE (NEGATIVE); PROTEIN, URINE AUTO NEGATIVE (NEGATIVE); RBC, URINE AUTO TNTC /HPF (0-3); SPECIFIC GRAVITY URINE AUTO 1.005 (1.002-1.035); SQUAMOUS EPITHELIAL CELL UR AU 0 /HPF (0-6); UROBILINOGEN, URINE AUTO 0.2 mg/dL (0.0-2.0); WBC, URINE AUTO 39 /HPF (0-3)
== END ==
LOC: M SMT 17:09
PROVIDERS: ATTEND Urology
DX: Z85.51 Personal history of malignant neoplasm of bladder (principal)

== ENCOUNTER → 2023-03-02 | Outpatient (REF) | payer OTHER ==
[2023-03-02 16:36] LABS: APPEARANCE, URINE CLOUDY (CLEAR); BACTERIA, URINE AUTO 2+ (NEGATIVE); BILIRUBIN, URINE AUTO NEGATIVE (NEGATIVE); BLOOD, URINE BLOOD 2+ (NEGATIVE); COLOR, URINE YELLOW (YELLOW); GLUCOSE, URINE (UA) AUTO NEGATIVE (NEGATIVE); KETONE, URINE AUTO NEGATIVE (NEGATIVE); LEUKOCYTE ESTERASE, URINE AUTO 3+ (NEGATIVE); NITRITE, URINE AUTO NEGATIVE (NEGATIVE); PROTEIN, URINE AUTO 2+ mg/dL (NEGATIVE); RBC, URINE AUTO 52 /HPF (0-3); SPECIFIC GRAVITY URINE AUTO 1.017 (1.002-1.035); SQUAMOUS EPITHELIAL CELL UR AU 1 /HPF (0-6); UROBILINOGEN, URINE AUTO 0.2 mg/dL (0.0-2.0); WBC, URINE AUTO TNTC /HPF (0-3)
== END ==
LOC: M SMT 15:34
PROVIDERS: ATTEND Urology
DX: R32 Unspecified urinary incontinence (principal)

== ENCOUNTER → 2023-07-31 | Outpatient (CLI) | payer OTHER, MEDICARE ==
[~2023-07-31] MED LIST changes: -ASPI-161 PO; +ASPI-615 PO; +FLUO-290 PO; -FLUO10CA18 PO; -MIRA1POW3 PO; +MIRA33506 PO; -OXYB5TAB11 PO; +OXYB5TAB14 PO; -SENN1TAB41 PO; +SENN1TAB85 PO
== END ==
LOC: M RAD 15:55
PROVIDERS: ATTEND Internal Medicine Pulmonary Disease
DX: R91.8 Other nonspecific abnormal finding of lung field (principal)

== ENCOUNTER → 2024-02-04 | Outpatient (REF) | payer MEDICARE, OTHER ==
[2024-02-04 18:21] LABS: AMORPHOUS SEDIMENT SMALL (NEGATIVE); APPEARANCE, URINE TURBID (CLEAR); BACTERIA, URINE AUTO 3+ (NEGATIVE); BILIRUBIN, URINE AUTO NEGATIVE (NEGATIVE); BLOOD, URINE BLOOD 1+ (NEGATIVE); COLOR, URINE AMBER (YELLOW); GLUCOSE, URINE (UA) AUTO NEGATIVE (NEGATIVE); KETONE, URINE AUTO TRACE mg/dL (NEGATIVE); LEUKOCYTE ESTERASE, URINE AUTO 3+ (NEGATIVE); MUCUS, URINE SMALL (NEGATIVE); NITRITE, URINE AUTO NEGATIVE (NEGATIVE); PROTEIN, URINE AUTO 2+ mg/dL (NEGATIVE); RBC, URINE AUTO 42 /HPF (0-3); SPECIFIC GRAVITY URINE AUTO 1.018 (1.002-1.035); SQUAMOUS EPITHELIAL CELL UR AU 3 /HPF (0-6); UROBILINOGEN, URINE AUTO 0.2 mg/dL (0.0-2.0); WBC, URINE AUTO TNTC /HPF (0-3)
== END ==
LOC: M SMT 17:10
PROVIDERS: ATTEND Urology
DX: R33.9 Retention of urine, unspecified (principal)

== ENCOUNTER → 2024-04-03 | Outpatient (REF) | payer MEDICARE, OTHER ==
[2024-04-03 09:47] LABS: BASO % 0.5 % (0.0-1.0); EOS # 0.2 10^3/uL (0.0-0.5); EOS % 2.8 % (0.0-3.0); HEMATOCRIT 37.3 % (42.0-52.0); HEMOGLOBIN 11.9 g/dl (13.5-17.5); LYMPH # 0.7 10^3/uL (1.5-5.0); LYMPH % 7.6 % (24.0-44.0); MEAN CORPUSCULAR HEMOGLOBIN 28.5 pg (27.0-33.0); MEAN CORPUSCULAR HGB CONC 31.9 g/dl (32.0-36.5); MEAN CORPUSCULAR VOLUME 89.2 fl (80.0-96.0); MONO # 0.6 10^3/uL (0.0-0.8); MONO % 6.3 % (2.0-8.0); NEUTROPHILS # 7.2 10^3/uL (1.5-8.5); NEUTROPHILS % 82.3 % (36.0-66.0); PLATELET COUNT, AUTOMATED 451 10^3/uL (150-450); RED BLOOD COUNT 4.18 10^6/uL (4.30-6.10); WHITE BLOOD COUNT 8.7 10^3/uL (4.0-10.0)
[2024-04-03 10:10] LABS: BLOOD UREA NITROGEN 27 MG/DL (9-23); CALCIUM LEVEL 9.6 MG/DL (8.3-10.6); CARBON DIOXIDE LEVEL 27 MMOL/L (20-31); CHLORIDE LEVEL 106 MMOL/L (98-107); CREATININE FOR GFR 0.84 MG/DL (0.70-1.30); GLOMERULAR FILTRATION RATE > 60.0 (>35); GLUCOSE, FASTING 127 MG/DL (74-106); SODIUM LEVEL 142 MMOL/L (136-145)
== END ==
LOC: SKLAB7 07:25
PROVIDERS: ATTEND Internal Medicine
DX: I10 Essential (primary) hypertension (principal)

== ENCOUNTER → 2024-04-05 | Outpatient (REF) | payer MEDICARE, OTHER | LOC: SKLAB7 15:10 | PROVIDERS: ATTEND Physician Assistant | DX: R09.89 Other specified symptoms and signs involving the circulatory and respiratory systems (principal); R05.8 Other specified cough ==

== ENCOUNTER → 2024-04-09 | Outpatient (REF) | payer OTHER ==
[2024-04-09 10:59] LABS: BASO % 0.3 % (0.0-1.0); EOS # 0.3 10^3/uL (0.0-0.5); EOS % 3.3 % (0.0-3.0); HEMATOCRIT 34.3 % (42.0-52.0); HEMOGLOBIN 11.4 g/dl (13.5-17.5); LYMPH # 0.8 10^3/uL (1.5-5.0); LYMPH % 9.8 % (24.0-44.0); MEAN CORPUSCULAR HEMOGLOBIN 29.9 pg (27.0-33.0); MEAN CORPUSCULAR HGB CONC 33.2 g/dl (32.0-36.5); MONO # 0.5 10^3/uL (0.0-0.8); MONO % 6.3 % (2.0-8.0); NEUTROPHILS # 6.2 10^3/uL (1.5-8.5); NEUTROPHILS % 79.8 % (36.0-66.0); RED BLOOD COUNT 3.81 10^6/uL (4.30-6.10); WHITE BLOOD COUNT 7.8 10^3/uL (4.0-10.0)
[2024-04-09 11:32] LABS: BLOOD UREA NITROGEN 18 MG/DL (9-23); CALCIUM LEVEL 8.5 MG/DL (8.3-10.6); CARBON DIOXIDE LEVEL 25 MMOL/L (20-31); CHLORIDE LEVEL 104 MMOL/L (98-107); CREATININE FOR GFR 0.87 MG/DL (0.70-1.30); GLOMERULAR FILTRATION RATE > 60.0 (>35); GLUCOSE, FASTING 103 MG/DL (74-106); SODIUM LEVEL 141 MMOL/L (136-145)
== END ==
LOC: SKLAB7 09:58
PROVIDERS: ATTEND Internal Medicine
DX: I10 Essential (primary) hypertension (principal)

== ENCOUNTER → 2024-04-16 | Outpatient (REF) | payer OTHER ==
[2024-04-16 10:55] LABS: BASO % 0.5 % (0.0-1.0); EOS # 0.3 10^3/uL (0.0-0.5); EOS % 4.3 % (0.0-3.0); HEMATOCRIT 33.9 % (42.0-52.0); HEMOGLOBIN 11.1 g/dl (13.5-17.5); LYMPH # 0.7 10^3/uL (1.5-5.0); LYMPH % 12.1 % (24.0-44.0); MEAN CORPUSCULAR HEMOGLOBIN 29.4 pg (27.0-33.0); MEAN CORPUSCULAR HGB CONC 32.7 g/dl (32.0-36.5); MEAN CORPUSCULAR VOLUME 89.7 fl (80.0-96.0); MONO # 0.6 10^3/uL (0.0-0.8); NEUTROPHILS # 4.2 10^3/uL (1.5-8.5); NEUTROPHILS % 72.8 % (36.0-66.0); PLATELET COUNT, AUTOMATED 295 10^3/uL (150-450); RED BLOOD COUNT 3.78 10^6/uL (4.30-6.10); WHITE BLOOD COUNT 5.8 10^3/uL (4.0-10.0)
[2024-04-16 11:17] LABS: BLOOD UREA NITROGEN 21 MG/DL (9-23); CARBON DIOXIDE LEVEL 27 MMOL/L (20-31); CHLORIDE LEVEL 103 MMOL/L (98-107); CREATININE FOR GFR 0.78 MG/DL (0.70-1.30); GLOMERULAR FILTRATION RATE > 60.0 (>35); GLUCOSE, FASTING 88 MG/DL (74-106); POTASSIUM SERUM 4.4 MMOL/L (3.5-5.1); SODIUM LEVEL 139 MMOL/L (136-145)
== END ==
LOC: SKLAB7 07:56
PROVIDERS: ATTEND Internal Medicine
DX: I10 Essential (primary) hypertension (principal)

== ENCOUNTER → 2024-05-09 | Outpatient (REF) | payer OTHER ==
[~2024-05-09] MED LIST changes: +VANC125C13 PO; -VANC125C3 PO
[2024-05-09 15:51] LABS: APPEARANCE, URINE CLOUDY (CLEAR); BACTERIA, URINE AUTO 2+ (NEGATIVE); BILIRUBIN, URINE AUTO NEGATIVE (NEGATIVE); BLOOD, URINE BLOOD 1+ (NEGATIVE); COLOR, URINE AMBER (YELLOW); GLUCOSE, URINE (UA) AUTO NEGATIVE (NEGATIVE); KETONE, URINE AUTO NEGATIVE (NEGATIVE); LEUKOCYTE ESTERASE, URINE AUTO 3+ (NEGATIVE); MUCUS, URINE SMALL (NEGATIVE); NITRITE, URINE AUTO POSITIVE (NEGATIVE); PROTEIN, URINE AUTO 2+ mg/dL (NEGATIVE); RBC, URINE AUTO 29 /HPF (0-3); SPECIFIC GRAVITY URINE AUTO 1.016 (1.002-1.035); SQUAMOUS EPITHELIAL CELL UR AU 1 /HPF (0-6); UROBILINOGEN, URINE AUTO 0.2 mg/dL (0.0-2.0); WBC, URINE AUTO TNTC /HPF (0-3)
== END ==
LOC: SKLAB7 08:03
PROVIDERS: ATTEND Internal Medicine
DX: R68.89 Other general symptoms and signs (principal); Z96.0 Presence of urogenital implants; Z87.440 Personal history of urinary (tract) infections

== ENCOUNTER → 2024-06-05 | Outpatient (REF) | payer OTHER ==
[2024-06-05 08:00] LABS: HEMATOCRIT 38.1 % (42.0-52.0); HEMOGLOBIN 12.5 g/dl (13.5-17.5); MEAN CORPUSCULAR HEMOGLOBIN 29.2 pg (27.0-33.0); MEAN CORPUSCULAR HGB CONC 32.8 g/dl (32.0-36.5); PLATELET COUNT, AUTOMATED 289 10^3/uL (150-450); RED BLOOD COUNT 4.28 10^6/uL (4.30-6.10); WHITE BLOOD COUNT 6.3 10^3/uL (4.0-10.0)
[2024-06-05 08:32] LABS: ALBUMIN 3.1 G/DL (3.2-5.2); ALKALINE PHOSPHATASE 77 U/L (40-129); ALT/SGPT < 9 U/L (7.0-40); AST/SGOT < 8 U/L (<34); BILIRUBIN,TOTAL 0.6 MG/DL (0.3-1.2); BLOOD UREA NITROGEN 13 MG/DL (9-23); CALCIUM LEVEL 9.4 MG/DL (8.3-10.6); CARBON DIOXIDE LEVEL 30 MMOL/L (20-31); CHLORIDE LEVEL 102 MMOL/L (98-107); GLOMERULAR FILTRATION RATE > 60.0 (>35); GLUCOSE, FASTING 75 MG/DL (74-106); POTASSIUM SERUM 4.7 MMOL/L (3.5-5.1); SODIUM LEVEL 138 MMOL/L (136-145); TOTAL PROTEIN 6.3 G/DL (5.7-8.2)
[2024-06-05 08:35] LABS: TOTAL 25(OH) VITAMIN D 56.8 NG/ML (20.0-100.0)
== END ==
LOC: SKLAB7 07:00
PROVIDERS: ATTEND Internal Medicine
DX: E55.9 Vitamin D deficiency, unspecified (principal); I10 Essential (primary) hypertension

== ENCOUNTER → 2024-06-17 | Outpatient (REF) | payer OTHER | LOC: SKLAB7 07:00 | PROVIDERS: ATTEND Internal Medicine | DX: R50.9 Fever, unspecified (principal) ==

== ENCOUNTER → 2024-09-15 | Outpatient (REF) ==
[~2024-09-15] MED LIST changes: -AMBI5TAB PO; -FLOM0.4C39 PO; +LISI40TA10 PO; -LISI40TA4 PO; +TAMS-18 PO; +ZOLP-532 PO
== END ==
LOC: SKLAB7 19:12
PROVIDERS: ATTEND Internal Medicine
DX: R05.9 Cough, unspecified (principal)

== ENCOUNTER → 2024-09-16 | Outpatient (REF) | payer OTHER | LOC: SKLAB7 07:01 | PROVIDERS: ATTEND Internal Medicine | DX: Z01.818 Encounter for other preprocedural examination (principal); I44.0 Atrioventricular block, first degree ==

== ENCOUNTER → 2024-09-25 | Outpatient (REF) | payer OTHER ==
[2024-09-25 16:23] LABS: VENOUS BASE EXCESS 1.5 (-2.0-2.0); VENOUS HCO3 26.5 MMOL/L (23.0-27.0); VENOUS O2 SATURATION 98.9 % (60.0-80.0); VENOUS PARTIAL PRESSURE CO2 42.8 mmHg (38.0-50.0); VENOUS PARTIAL PRESSURE O2 170.6 mmHg (30.0-50.0); VENOUS PH 7.409 UNITS (7.330-7.430); VENOUS STANDARD HCO3 25.9 MMOL/L; VENOUS TOTAL CO2 27.8 MMOL/L (24.0-28.0)
== END ==
LOC: SKLAB7 14:29
PROVIDERS: ATTEND Internal Medicine
DX: R06.02 Shortness of breath (principal); R53.83 Other fatigue

== ENCOUNTER → 2024-09-25 | Outpatient (REF) | payer OTHER ==
[2024-09-25 10:28] LABS: BASO # 0.0 10^3/uL (0.0-0.2); BASO % 0.2 % (0.0-1.0); EOS # 0.3 10^3/uL (0.0-0.5); EOS % 2.5 % (0.0-3.0); LYMPH # 0.8 10^3/uL (1.5-5.0); LYMPH % 6.4 % (24.0-44.0); MONO # 0.8 10^3/uL (0.0-0.8); MONO % 6.3 % (2.0-8.0); NEUTROPHILS # 10.9 10^3/uL (1.5-8.5); NEUTROPHILS % 84.1 % (36.0-66.0); PLATELET COUNT, AUTOMATED 285 10^3/uL (150-450)
[2024-09-25 10:43] LABS: ALT/SGPT 10.0 U/L (7.0-40); AST/SGOT 12.0 U/L (<34); CALCIUM LEVEL 8.7 MG/DL (8.3-10.6); CARBON DIOXIDE LEVEL 28.0 MMOL/L (20-31); CHLORIDE LEVEL 98.0 MMOL/L (98-107); CREATININE FOR GFR 0.86 MG/DL (0.70-1.30); GLOMERULAR FILTRATION RATE 85.9 (>35); POTASSIUM SERUM 4.2 MMOL/L (3.5-5.1); SODIUM LEVEL 135.0 MMOL/L (136-145)
== END ==
LOC: SKLAB7 09:40
PROVIDERS: ATTEND Internal Medicine
DX: R91.8 Other nonspecific abnormal finding of lung field (principal); R05.9 Cough, unspecified; R53.83 Other fatigue

== ENCOUNTER → 2024-09-25 | Outpatient (REF) | payer OTHER | LOC: SKLAB7 13:33 | PROVIDERS: ATTEND Internal Medicine | DX: I10 Essential (primary) hypertension (principal) ==

== ENCOUNTER → 2024-09-26 | Outpatient (REF) | payer OTHER ==
[~2024-09-26] MED LIST changes: +ASCO500C3 PO; +IRON65TA2 PO; +LISI10TA24 PO; +METH-855 PO
[2024-09-26 09:27] LABS: BASO # 0.0 10^3/uL (0.0-0.2); BASO % 0.2 % (0.0-1.0); EOS # 0.3 10^3/uL (0.0-0.5); EOS % 3.2 % (0.0-3.0); LYMPH # 0.8 10^3/uL (1.5-5.0); LYMPH % 7.6 % (24.0-44.0); MONO # 0.9 10^3/uL (0.0-0.8); MONO % 8.8 % (2.0-8.0); NEUTROPHILS # 8.5 10^3/uL (1.5-8.5); NEUTROPHILS % 79.5 % (36.0-66.0); PLATELET COUNT, AUTOMATED 291 10^3/uL (150-450)
[2024-09-26 09:48] LABS: CALCIUM LEVEL 8.5 MG/DL (8.3-10.6); CARBON DIOXIDE LEVEL 25.0 MMOL/L (20-31); CHLORIDE LEVEL 96.0 MMOL/L (98-107); CREATININE FOR GFR 0.84 MG/DL (0.70-1.30); GLOMERULAR FILTRATION RATE 86.5 (>35); POTASSIUM SERUM 4.2 MMOL/L (3.5-5.1); SODIUM LEVEL 132.0 MMOL/L (136-145)
== END ==
LOC: SKLAB7 07:38
PROVIDERS: ATTEND Internal Medicine
DX: R06.02 Shortness of breath (principal)

== ENCOUNTER → 2024-09-30 | Outpatient (REF) | payer OTHER ==
[2024-09-30 09:03] LABS: CALCIUM LEVEL 8.8 MG/DL (8.3-10.6); CARBON DIOXIDE LEVEL 28.0 MMOL/L (20-31); CHLORIDE LEVEL 95.0 MMOL/L (98-107); CREATININE FOR GFR 0.88 MG/DL (0.70-1.30); GLOMERULAR FILTRATION RATE 85.3 (>35); POTASSIUM SERUM 3.8 MMOL/L (3.5-5.1); SODIUM LEVEL 132.0 MMOL/L (136-145)
== END ==
LOC: SKLAB7 07:00
PROVIDERS: ATTEND Internal Medicine
DX: R41.82 Altered mental status, unspecified (principal)

== ENCOUNTER → 2024-10-03 | Outpatient (CLI) | payer OTHER | LOC: M RAD 11:33 | PROVIDERS: ATTEND Family Medicine | DX: R19.09 Other intra-abdominal and pelvic swelling, mass and lump (principal) ==

== ENCOUNTER → 2024-10-05 | Outpatient (REF) | payer OTHER, MEDICARE ==
[2024-10-05 13:15] LABS: PLATELET COUNT, AUTOMATED 221 10^3/uL (150-450)
[2024-10-05 13:47] LABS: CALCIUM LEVEL 8.9 MG/DL (8.3-10.6); CARBON DIOXIDE LEVEL 28.0 MMOL/L (20-31); CHLORIDE LEVEL 94.0 MMOL/L (98-107); CREATININE FOR GFR 0.81 MG/DL (0.70-1.30); GLOMERULAR FILTRATION RATE 87.5 (>35); POTASSIUM SERUM 4.0 MMOL/L (3.5-5.1); SODIUM LEVEL 131.0 MMOL/L (136-145)
== END ==
LOC: SKLAB7 10:56
PROVIDERS: ATTEND Internal Medicine
DX: J44.1 Chronic obstructive pulmonary disease with (acute) exacerbation (principal)

== ENCOUNTER → 2024-10-13 | Outpatient (REF) | payer SELFPAY ==
[~2024-10-13] MED LIST changes: +ALB2.5NEB INH; +AMLO1TAB24 PO; +CLOT1CRE56 TOP; +CVS7.6LO PO; +FURO40TA2 PO; +GABA-1172 PO; +LISI10TA22 PO; +MILKSUS3 PO; +POTA-150 PO; +SM N0.65 NARES; +SPIR1CAP INH
[2024-10-13 09:56] LABS: CALCIUM LEVEL 9.0 MG/DL (8.3-10.6); CARBON DIOXIDE LEVEL 28.0 MMOL/L (20-31); CHLORIDE LEVEL 99.0 MMOL/L (98-107); CREATININE FOR GFR 0.78 MG/DL (0.70-1.30); GLOMERULAR FILTRATION RATE 88.5 (>35); POTASSIUM SERUM 4.2 MMOL/L (3.5-5.1); SODIUM LEVEL 138.0 MMOL/L (136-145)
== END ==
LOC: SKLAB7 07:00
PROVIDERS: ATTEND Internal Medicine
DX: E87.0 Hyperosmolality and hypernatremia (principal)

== ENCOUNTER → 2024-11-05 | Outpatient (REF) | payer OTHER | LOC: SKLAB7 09:38 | PROVIDERS: ATTEND Internal Medicine | DX: R06.02 Shortness of breath (principal) ==

== ENCOUNTER → 2024-11-10 | Outpatient (REF) | payer OTHER, MEDICARE ==
[~2024-11-10] MED LIST changes: -ALB2.5NEB INH; -AMLO1TAB24 PO; -CLOT1CRE56 TOP; -CVS7.6LO PO; -FURO40TA2 PO; -GABA-1172 PO; -LISI10TA22 PO; -MILKSUS3 PO; -POTA-150 PO; -SM N0.65 NARES; -SPIR1CAP INH
== END ==
LOC: SKLAB7 14:42
DX: I50.9 Heart failure, unspecified (principal); R60.0 Localized edema; Z53.8 Procedure and treatment not carried out for other reasons

== ENCOUNTER → 2024-11-11 | Outpatient (REF) | payer MEDICARE, OTHER ==
[~2024-11-11] MED LIST changes: +ALB2.5NEB INH; +AMLO1TAB24 PO; +CLOT1CRE56 TOP; +CVS7.6LO PO; +FURO40TA2 PO; +GABA-1172 PO; +LISI10TA22 PO; +MILKSUS3 PO; +POTA-150 PO; +SM N0.65 NARES; +SPIR1CAP INH
[2024-11-11 15:47] LABS: ALT/SGPT 11.0 U/L (7.0-40); AST/SGOT 9.0 U/L (<34); CALCIUM LEVEL 9.9 MG/DL (8.3-10.6); CARBON DIOXIDE LEVEL 31.0 MMOL/L (20-31); CHLORIDE LEVEL 101.0 MMOL/L (98-107); CREATININE FOR GFR 0.85 MG/DL (0.70-1.30); GLOMERULAR FILTRATION RATE 86.2 (>35); POTASSIUM SERUM 4.0 MMOL/L (3.5-5.1); SODIUM LEVEL 141.0 MMOL/L (136-145)
== END ==
LOC: SKLAB7 13:31
PROVIDERS: ATTEND Internal Medicine
DX: I50.9 Heart failure, unspecified (principal)

== ENCOUNTER 2024-11-19 07:59 | Emergency (ER) | payer OTHER, MEDICARE ==
[~2024-11-19 07:59] MED LIST changes: -ALB2.5NEB INH; -AMLO1TAB24 PO; -CLOT1CRE56 TOP; -CVS7.6LO PO; -FURO40TA2 PO; -GABA-1172 PO; -LISI10TA22 PO; +METH-1100 PO; -METH-855 PO; -MILKSUS3 PO; -POTA-150 PO; -SM N0.65 NARES; -SPIR1CAP INH
[2024-11-19] MEDS ORDERED: GABA-1172 PO (09:14)
[2024-11-19] MEDS ORDERED: AMLO1TAB24 PO (09:14)
[2024-11-19] MEDS ORDERED: CLOT1CRE56 TOP (09:14)
[2024-11-19] MEDS ORDERED: OXYB5TAB14 PO (09:14)
[2024-11-19] MEDS ORDERED: CVS7.6LO PO (09:14)
[2024-11-19] MEDS ORDERED: POTA-150 PO (09:14)
[2024-11-19] MEDS ORDERED: SM N0.65 NARES (09:14)
[2024-11-19] MEDS ORDERED: SPIR1CAP INH (09:14)
[2024-11-19] MEDS ORDERED: MILKSUS3 PO (09:14)
[2024-11-19] MEDS ORDERED: FURO40TA2 PO (09:14)
[2024-11-19] MEDS ORDERED: LISI10TA22 PO (09:14)
[2024-11-19] MEDS ORDERED: ALB2.5NEB INH (09:14)
[2024-11-19] MEDS ORDERED: HOME MED LIST COMPLETE! XX SCH (09:15)
[2024-11-19 09:30] VITALS: BP 128/61; TEMP 98.2; O2SAT 94
== END 2024-11-19 09:52 | disposition home or self-care (01) ==
LOC: EDBD 07:59 → M ED 07:59
DX: N47.2 Paraphimosis (principal); C61 Malignant neoplasm of prostate; I10 Essential (primary) hypertension; Z87.891 Personal history of nicotine dependence; Z79.1 Long term (current) use of non-steroidal anti-inflammatories (NSAID); Z79.52 Long term (current) use of systemic steroids; Z79.82 Long term (current) use of aspirin; Z79.899 Other long term (current) drug therapy

== ENCOUNTER → 2024-11-21 | Outpatient (REF) | payer OTHER, MEDICARE ==
[~2024-11-21] MED LIST changes: +ALB2.5NEB INH; +AMLO1TAB24 PO; +CLOT1CRE56 TOP; +CVS7.6LO PO; +FURO40TA2 PO; +GABA-1172 PO; +LISI10TA22 PO; +MILKSUS3 PO; +POTA-150 PO; +SM N0.65 NARES; +SPIR1CAP INH
[2024-11-21 13:04] LABS: CALCIUM LEVEL 9.2 MG/DL (8.3-10.6); CARBON DIOXIDE LEVEL 26.0 MMOL/L (20-31); CHLORIDE LEVEL 102.0 MMOL/L (98-107); CREATININE FOR GFR 1.37 MG/DL (0.70-1.30); GLOMERULAR FILTRATION RATE 51.2 (>35); POTASSIUM SERUM 4.5 MMOL/L (3.5-5.1); SODIUM LEVEL 140.0 MMOL/L (136-145)
== END ==
LOC: SKLAB7 07:00
PROVIDERS: ATTEND Internal Medicine
DX: I50.9 Heart failure, unspecified (principal)

== ENCOUNTER → 2024-11-28 | Outpatient (REF) | payer MEDICARE, OTHER ==
[2024-11-28 14:06] LABS: PLATELET COUNT, AUTOMATED 305 10^3/uL (150-450)
[2024-11-28 14:31] LABS: CALCIUM LEVEL 9.3 MG/DL (8.3-10.6); CARBON DIOXIDE LEVEL 28.0 MMOL/L (20-31); CHLORIDE LEVEL 105.0 MMOL/L (98-107); CREATININE FOR GFR 1.07 MG/DL (0.70-1.30); GLOMERULAR FILTRATION RATE 68.9 (>35); POTASSIUM SERUM 4.1 MMOL/L (3.5-5.1); SODIUM LEVEL 141.0 MMOL/L (136-145)
[2024-11-28 16:34] LABS: APPEARANCE, URINE CLOUDY (CLEAR); BACTERIA, URINE AUTO NEGATIVE (NEGATIVE); BILIRUBIN, URINE AUTO NEGATIVE (NEGATIVE); BLOOD, URINE BLOOD 2+ (NEGATIVE); GLUCOSE, URINE (UA) AUTO NEGATIVE (NEGATIVE); KETONE, URINE AUTO NEGATIVE (NEGATIVE); LEUKOCYTE ESTERASE, URINE AUTO 3+ (NEGATIVE); MUCUS, URINE SMALL (NEGATIVE); NITRITE, URINE AUTO NEGATIVE (NEGATIVE); PROTEIN, URINE AUTO 2+ mg/dL (NEGATIVE); RBC, URINE AUTO TNTC /HPF (0-3); SPECIFIC GRAVITY URINE AUTO 1.023 (1.002-1.035); SQUAMOUS EPITHELIAL CELL UR AU 9 /HPF (0-6); UROBILINOGEN, URINE AUTO 0.2 mg/dL (0.0-2.0); WBC, URINE AUTO TNTC /HPF (0-3)
== END ==
LOC: SKLAB7 11:07
PROVIDERS: ATTEND Internal Medicine
DX: N18.9 Chronic kidney disease, unspecified (principal); N39.0 Urinary tract infection, site not specified

== ENCOUNTER → 2024-12-02 | Outpatient (REF) | payer MEDICARE, OTHER ==
[~2024-12-02] MED LIST changes: +PRED20TA PO
[2024-12-02 11:33] LABS: PLATELET COUNT, AUTOMATED 299 10^3/uL (150-450)
[2024-12-02 12:05] LABS: ALT/SGPT 9.0 U/L (7.0-40); AST/SGOT 10.0 U/L (<34); CALCIUM LEVEL 8.2 MG/DL (8.3-10.6); CARBON DIOXIDE LEVEL 29.0 MMOL/L (20-31); CHLORIDE LEVEL 102.0 MMOL/L (98-107); CREATININE FOR GFR 0.88 MG/DL (0.70-1.30); GLOMERULAR FILTRATION RATE 85.3 (>35); POTASSIUM SERUM 4.4 MMOL/L (3.5-5.1); SODIUM LEVEL 140.0 MMOL/L (136-145)
== END ==
LOC: SKLAB7 11-27 07:00
PROVIDERS: ATTEND Internal Medicine
DX: I10 Essential (primary) hypertension (principal)

== ENCOUNTER → 2024-12-12 | Outpatient (REF) | payer OTHER ==
[~2024-12-12] MED LIST changes: -PRED20TA PO
[2024-12-12 17:48] LABS: APPEARANCE, URINE HAZY (CLEAR); BACTERIA, URINE AUTO NEGATIVE (NEGATIVE); BILIRUBIN, URINE AUTO NEGATIVE (NEGATIVE); BLOOD, URINE BLOOD 3+ (NEGATIVE); GLUCOSE, URINE (UA) AUTO NEGATIVE (NEGATIVE); KETONE, URINE AUTO NEGATIVE (NEGATIVE); LEUKOCYTE ESTERASE, URINE AUTO 3+ (NEGATIVE); MUCUS, URINE SMALL (NEGATIVE); NITRITE, URINE AUTO NEGATIVE (NEGATIVE); PROTEIN, URINE AUTO 1+ mg/dL (NEGATIVE); RBC, URINE AUTO TNTC /HPF (0-3); SPECIFIC GRAVITY URINE AUTO 1.010 (1.002-1.035); SQUAMOUS EPITHELIAL CELL UR AU 0 /HPF (0-6); UROBILINOGEN, URINE AUTO 0.2 mg/dL (0.0-2.0); WBC, URINE AUTO TNTC /HPF (0-3)
[2024-12-12 18:40] LABS: PLATELET COUNT, AUTOMATED 263 10^3/uL (150-450)
[2024-12-12 19:08] LABS: ALT/SGPT < 9 U/L (7.0-40); AST/SGOT 10 U/L (<34); CALCIUM LEVEL 8.6 MG/DL (8.3-10.6); CARBON DIOXIDE LEVEL 30 MMOL/L (20-31); CHLORIDE LEVEL 101 MMOL/L (98-107); CREATININE FOR GFR 1.18 MG/DL (0.70-1.30); GLOMERULAR FILTRATION RATE 61.2 (>35); POTASSIUM SERUM 4.6 MMOL/L (3.5-5.1); SODIUM LEVEL 140 MMOL/L (136-145)
[2024-12-12 19:20] LABS: CPK CREATINE PHOSPHOKINASE 17 U/L (46-171)
== END ==
LOC: SKLAB7 16:42
PROVIDERS: ATTEND Internal Medicine
DX: N18.9 Chronic kidney disease, unspecified (principal)

== ENCOUNTER → 2024-12-15 | Outpatient (REF) | payer SELFPAY | LOC: SKLAB7 14:11 | PROVIDERS: ATTEND Internal Medicine | DX: R06.02 Shortness of breath (principal); R60.9 Edema, unspecified ==

== ENCOUNTER → 2024-12-15 | Outpatient (REF) | payer SELFPAY ==
[2024-12-15 14:07] LABS: CALCIUM LEVEL 9.2 MG/DL (8.3-10.6); CARBON DIOXIDE LEVEL 29.0 MMOL/L (20-31); CHLORIDE LEVEL 99.0 MMOL/L (98-107); CREATININE FOR GFR 0.9 MG/DL (0.70-1.30); GLOMERULAR FILTRATION RATE 84.7 (>35); POTASSIUM SERUM 4.2 MMOL/L (3.5-5.1); SODIUM LEVEL 138.0 MMOL/L (136-145)
== END ==
LOC: SKLAB7 07:23
PROVIDERS: ATTEND Internal Medicine
DX: N18.9 Chronic kidney disease, unspecified (principal)

== ENCOUNTER → 2024-12-21 | Outpatient (REF) | payer SELFPAY | LOC: SKLAB7 07:00 | PROVIDERS: ATTEND Internal Medicine | DX: R06.02 Shortness of breath (principal); R06.2 Wheezing; I70.0 Atherosclerosis of aorta ==

== ENCOUNTER 2025-01-09 16:18 | Emergency (ER) | payer MEDICARE, OTHER ==
[~2025-01-09] VITALS: Ht 175.3 cm; Wt 82.5 kg
[2025-01-09 17:01] LABS: VENOUS BASE EXCESS -0.7 (-2.0-2.0); VENOUS HCO3 24.5 MMOL/L (23.0-27.0); VENOUS O2 SATURATION 56.8 % (60.0-80.0); VENOUS PARTIAL PRESSURE CO2 42.6 mmHg (38.0-50.0); VENOUS PARTIAL PRESSURE O2 30.6 mmHg (30.0-50.0); VENOUS PH 7.378 UNITS (7.330-7.430); VENOUS STANDARD HCO3 22.9 MMOL/L; VENOUS TOTAL CO2 25.8 MMOL/L (24.0-28.0)
[2025-01-09 17:05] LABS: BASO # 0.0 10^3/uL (0.0-0.2); BASO % 0.3 % (0.0-1.0); EOS # 0.1 10^3/uL (0.0-0.5); EOS % 0.8 % (0.0-3.0); LYMPH # 0.7 10^3/uL (1.5-5.0); LYMPH % 6.6 % (24.0-44.0); MONO # 0.6 10^3/uL (0.0-0.8); MONO % 5.4 % (2.0-8.0); NEUTROPHILS # 8.9 10^3/uL (1.5-8.5); NEUTROPHILS % 86.6 % (36.0-66.0); PLATELET COUNT, AUTOMATED 346 10^3/uL (150-450)
[2025-01-09] MEDS: IPRATROPIUM 0.5 MG/ALBUTEROL 2.5 MG INH SOL UD 3 ML NEB ONE (17:07)
[2025-01-09 17:31] LABS: ALT/SGPT < 9 U/L (7.0-40); AST/SGOT 11 U/L (<34); CALCIUM LEVEL 9.0 MG/DL (8.3-10.6); CARBON DIOXIDE LEVEL 26 MMOL/L (20-31); CHLORIDE LEVEL 102 MMOL/L (98-107); CPK CREATINE PHOSPHOKINASE 33 U/L (46-171); CREATININE FOR GFR 0.87 MG/DL (0.70-1.30); GLOMERULAR FILTRATION RATE 85.6 (>35); POTASSIUM SERUM 4.4 MMOL/L (3.5-5.1); SODIUM LEVEL 139 MMOL/L (136-145)
[2025-01-09 17:58] LABS: CK-MB VALUE MASS 1.5 NG/ML (<3.6); MB/CK RELATIVE INDEX 4.54 (< OR =4)
[2025-01-09] MEDS ORDERED: PRED20TA PO (19:06)
[2025-01-09] MEDS ORDERED: VENTAER INH (19:07)
[2025-01-09 19:13] VITALS: BP 124/63; TEMP 96.6; O2SAT 95
== END 2025-01-09 19:50 | disposition home or self-care (01) ==
LOC: M ED 16:18 → EDBD 16:18 → M ED 19:50
DX: J44.1 Chronic obstructive pulmonary disease with (acute) exacerbation (principal); I44.0 Atrioventricular block, first degree; I44.4 Left anterior fascicular block; F17.200 Nicotine dependence, unspecified, uncomplicated; F10.10 Alcohol abuse, uncomplicated; F19.10 Other psychoactive substance abuse, uncomplicated; I10 Essential (primary) hypertension; M54.50 Low back pain, unspecified; F32.A Depression, unspecified; F41.9 Anxiety disorder, unspecified; Z79.1 Long term (current) use of non-steroidal anti-inflammatories (NSAID); Z79.52 Long term (current) use of systemic steroids; Z79.899 Other long term (current) drug therapy; Z79.82 Long term (current) use of aspirin
CPT/HCPCS: 71045; 80048; 80076; 82550; 82553; 82803; 83880; 84484; 85025; 87486; 87581; 87633; 87798; 93005; 93041; 94760; 96374; 99285; J2919

== ENCOUNTER → 2025-01-10 | Outpatient (REF) | payer MEDICARE, OTHER ==
[~2025-01-10] MED LIST changes: +PRED20TA PO
[2025-01-10 15:50] LABS: APPEARANCE, URINE TURBID (CLEAR); BACTERIA, URINE AUTO 2+ (NEGATIVE); BILIRUBIN, URINE AUTO NEGATIVE (NEGATIVE); BLOOD, URINE BLOOD 3+ (NEGATIVE); GLUCOSE, URINE (UA) AUTO NEGATIVE (NEGATIVE); KETONE, URINE AUTO TRACE mg/dL (NEGATIVE); LEUKOCYTE ESTERASE, URINE AUTO 1+ (NEGATIVE); MUCUS, URINE SMALL (NEGATIVE); NITRITE, URINE AUTO NEGATIVE (NEGATIVE); PROTEIN, URINE AUTO 2+ mg/dL (NEGATIVE); RBC, URINE AUTO TNTC /HPF (0-3); SPECIFIC GRAVITY URINE AUTO 1.024 (1.002-1.035); SQUAMOUS EPITHELIAL CELL UR AU 12 /HPF (0-6); TRANSITIONAL EPITHELIAL AUTO 4 /HPF; UROBILINOGEN, URINE AUTO 0.2 mg/dL (0.0-2.0); WBC, URINE AUTO TNTC /HPF (0-3)
== END ==
LOC: SKLAB7 14:30
PROVIDERS: ATTEND Internal Medicine
DX: R41.82 Altered mental status, unspecified (principal)

== ENCOUNTER → 2025-02-04 | Outpatient (REF) | payer MEDICARE, OTHER ==
[~2025-02-04] MED LIST changes: -CVS100LI4 PO; +GUAI-147 PO
[2025-02-04 16:46] LABS: PLATELET COUNT, AUTOMATED 347 10^3/uL (150-450)
[2025-02-04 17:08] LABS: CALCIUM LEVEL 8.8 MG/DL (8.3-10.6); CARBON DIOXIDE LEVEL 23.0 MMOL/L (20-31); CHLORIDE LEVEL 101.0 MMOL/L (98-107); CREATININE FOR GFR 0.87 MG/DL (0.70-1.30); GLOMERULAR FILTRATION RATE 85.6 (>35); POTASSIUM SERUM 4.4 MMOL/L (3.5-5.1); SODIUM LEVEL 135.0 MMOL/L (136-145)
== END ==
LOC: SKLAB7 14:48
PROVIDERS: ATTEND Internal Medicine
DX: R05.9 Cough, unspecified (principal); I51.7 Cardiomegaly; M81.0 Age-related osteoporosis without current pathological fracture; I70.0 Atherosclerosis of aorta; J98.6 Disorders of diaphragm

== ENCOUNTER → 2025-02-17 | Outpatient (CLI) | payer MEDICARE | LOC: M CARPUL 11:14 | PROVIDERS: ATTEND Internal Medicine | DX: I50.9 Heart failure, unspecified (principal) ==

== ENCOUNTER → 2025-03-02 | Outpatient (REF) | payer MEDICARE, OTHER | LOC: SKLAB7 10:28 | PROVIDERS: ATTEND Internal Medicine | DX: Z12.5 Encounter for screening for malignant neoplasm of prostate (principal) | CPT/HCPCS: 36415; G0103 ==

== ENCOUNTER → 2025-03-06 | Outpatient (REF) | payer MEDICARE, OTHER ==
[2025-03-06 11:56] LABS: CALCIUM LEVEL 9.0 MG/DL (8.3-10.6); CARBON DIOXIDE LEVEL 30.0 MMOL/L (20-31); CHLORIDE LEVEL 102.0 MMOL/L (98-107); CREATININE FOR GFR 0.99 MG/DL (0.70-1.30); GLOMERULAR FILTRATION RATE 75.1 (>35); POTASSIUM SERUM 4.3 MMOL/L (3.5-5.1); SODIUM LEVEL 141.0 MMOL/L (136-145)
== END ==
LOC: SKLAB7 07:00
PROVIDERS: ATTEND Internal Medicine
DX: N18.9 Chronic kidney disease, unspecified (principal)